=== PATIENT | female | born 1945 | race Caucasian/White ===

== ENCOUNTER → 2018-02-27 13:11 | Outpatient (CLI) | payer MEDICARE, OTHER, SELFPAY ==
--- NOTE | 2018-02-27 13:13 | DI.US.S_ITS ---
ULTRASOUND OF RIGHT BREAST: 02/27/2018 CLINICAL: Right breast pain only when burping. Comparison is made to exam dated: 10/24/2017 [facility]. Color flow ultrasound of the right breast was performed. Gonzalez scale images of the real-time examination were reviewed. IMPRESSION: NEGATIVE There is no sonographic evidence of malignancy. There is no abnormality seen in the right breast to correspond with the area of clinical concern, however, clinical followup is recommended. A 1 year screening mammogram is recommended. This exam was interpreted at Station ID: [id number]. Electronically Signed By: Farhat villegas/ana:02/27/2018 17:30:42 letter sent: Clinical Evaluation Ultrasound BI-RADS: 1 Negative
== END ==
PROVIDERS: PCP Family Medicine; Visit Provider Nurse Practitioner Family
DX: N64.4 Mastodynia (principal)
CPT/HCPCS: 76642

== ENCOUNTER 2018-04-04 10:49 | Emergency (ER) | payer MEDICARE, OTHER, SELFPAY ==
[2018-04-04 11:04] VITALS: BP 176/65; PULSE 66; RESP 18; TEMP 36.7; O2SAT 98; BMI 27.3
--- NOTE | 2018-04-04 12:21 | DI.CT.S_ITS ---
PROCEDURE: CT HEAD/BRAIN WO CON INDICATIONS: headache TECHNIQUE: Noncontrast 4.5 mm thick angled axial sections acquired from the foramen magnum to the vertex, with coronal and sagittal reformats. For radiation dose reduction, the following was used: automated exposure control, adjustment of mA and/or kV according to patient size. COMPARISON: None. FINDINGS: Image quality: Excellent. CSF spaces: Basal cisterns are patent. No extra-axial fluid collections. Ventricles are normal in size and shape. Brain: No midline shift. No intracranial masses or hemorrhage. Gonzalez-white matter interface is normal. Skull and face: Calvarium and visualized facial bones are intact, without suspicious lesions. Sinuses: Visualized sinuses and mastoids are clear. IMPRESSION: No source of headache is found. Dictated by: Ty Eaton M.D. on 04/04/2018 at 12:50 Approved by: Ty Eaton M.D. on 04/04/2018 at 12:50
[2018-04-04 12:44] LABS: Add Manual Diff / Slide Review NO; Basophils Percent Auto 1.1 % (0-2); Eosinophils Percent Auto 1.1 % (2-4); Hematocrit 39.2 % (36-46); Hemoglobin 13.4 g/dL (12.0-16.0); Lymphocytes Percent Auto 26.6 % (25-40); Mean Corpuscular HGB Conc 34.2 % (30-36); Mean Corpuscular Hemoglobin 30.3 PG (26-34); Mean Corpuscular Volume 88.7 fL (80-100); Monocytes Percent Auto 8.2 % (3-14); Neutrophils Absolute Auto 3000 /uL (3000-5900); Platelet Count 184 X10^3/uL (150-400); Red Blood Cell Count 4.42 X10^6/uL (4.0-5.2); White Blood Cell Count 4.8 X10^3/uL (4.5-11.0)
--- NOTE | 2018-04-04 12:51 | ED_ITS ---
HPI - Headache <SAVANNA Pérez - Last Filed: 04/04/18 22:02> General Chief Complaint: Headache Stated Complaint: sharp pain in left side of head x3 days Time Seen by Provider: 04/04/18 12:06 History of Present Illness HPI Narrative: 73-year-old female here for complaint of left-sided headache for the last 3 days. She states that she recently had put her dog down and she spent most of the day crying and after that she has had headache on and off over the last 3 days. She denies any trauma to her head. She denies any fevers or chills. No nausea or vomiting. No photophobia. She states that her headache seems to improve when she relaxes. She denies any stressors to the headache. She is ambulatory into the emergency room. She denies any neuro deficits. MD Complaint: headache Related Data Home Medications Medication Instructions Recorded Confirmed ascorbic acid (vitamin C) 1 tab PO QPM #0 07/06/17 04/04/18 calcium citrate 1 tab PO QPM #0 07/06/17 04/04/18 cholecalciferol (vitamin D3) 1 tab PO QPM #0 07/06/17 04/04/18 [Vitamin D3] magnesium 1 tab PO QPM #0 07/06/17 04/04/18 multivitamin [Multiple Vitamins] 1 tab PO QPM #0 07/06/17 04/04/18 vitamin A 1 cap PO QPM #0 07/06/17 04/04/18 metoprolol tartrate 75 mg PO QPM 04/04/18 04/04/18 Allergies Allergy/AdvReac Type Severity Reaction Status Date / Time Codeine Allergy Mild Rash Uncoded 02/04/18 09:01 Review of Systems <SAVANNA Pérez - Last Filed: 04/04/18 22:02> Constitutional Denies chills, Denies fever(s), Reports headache(s), Denies lethargy and Denies weakness Eyes Denies change in vision, Denies eye discharge, Denies irritation and Denies loss of vision ENT Ears, Nose, Mouth, and Throat: Denies change in voice, Reports headache(s), Denies neck pain and Denies sore throat Cardiovascular Denies chest pain, Denies irregular heart rhythm, Denies lightheadedness, Denies palpitations, Denies dyspnea, Denies dyspnea on exertion and Denies orthopnea Respiratory Denies cough, Denies dyspnea, Denies dyspnea on exertion and Denies wheezing Gastrointestinal Gastrointestinal: Denies abdominal pain, Denies change in bowel habits, Denies diarrhea, Denies nausea and Denies vomiting Genitourinary Denies hematuria, Denies flank pain, Denies urinary incontinence and Denies urinary urgency Musculoskeletal Denies neck pain Integumentary/Breasts Denies pruritus, Denies erythema, Denies rash and Denies wounds Neurologic Denies confusion, Reports headache(s), Denies loss of vision and Denies weakness Psychiatric Denies anxiety, Denies confusion, Denies depression, Denies homicidal ideation and Denies suicidal ideation Endocrine Denies palpitations Hematologic/Lymphatic Denies easy bruising Allergic/Immunologic Denies wheezing Exam <SAVANNA Pérez - Last Filed: 04/04/18 22:02> Initial Vital Signs Initial Vital Signs: Vital Signs Temperature 98.0 F 04/04/18 11:04 Pulse Rate 66 04/04/18 11:04 Respiratory Rate 18 04/04/18 11:04 Blood Pressure 176/65 H 04/04/18 11:04 Pulse Oximetry 98 04/04/18 11:04 HENMT Head: normocephalic and atraumatic Ears: external ears normal and TM's normal bilaterally Nose: external nose normal and No nasal discharge Mouth: oral mucosae normal and moist mucous membranes Teeth and gingiva: dentition normal Throat: tonsils normal and uvula midline Eyes Conjunctivae: conjunctivae normal Sclera: sclerae normal Pupils: PERRL EOM: EOM intact bilaterally Neck Neck: normal visual inspection, trachea midline, No lymphadenopathy, No midline deformity and No JVD Lymphatic: No lymphedema Resp Effort & Inspection: normal respiratory effort, able to speak in complete sentences, no respiratory distress and no use of accessory muscles Auscultation: clear to auscultation bilaterally, no rales, no rhonchi and no wheezes Cardio Rate: regular rate Rhythm: regular rhythm Heart Sounds: no click, no gallops, no murmurs and no rubs Pulses: normal peripheral pulses Skin General: no rashes or lesions noted, No jaundice and No petechiae Neuro General: alert, oriented x3, gait normal and no focal motor deficits Speech: speech normal Gait: normal gait Motor: muscle tone normal throughout Sensory Exam: no sensory deficits noted <DO Paulina Rader Last Filed: 04/05/18 12:17> Initial Vital Signs Initial Vital Signs: Vital Signs Temperature 98.0 F 04/04/18 11:04 Pulse Rate 66 04/04/18 11:04 Respiratory Rate 18 04/04/18 11:04 Blood Pressure 176/65 H 04/04/18 11:04 Pulse Oximetry 98 04/04/18 11:04 Course <SAVANNA Pérez - Last Filed: 04/04/18 22:02> Orders Ordered: ED Orders 04/04/18 12:21 CT head/brain wo con Stat 04/04/18 12:40 Complete Blood Count AUTO DIFF Stat Comprehensive Metabolic Panel Stat Vital Signs - 8 hr 04/04/18 11:04 04/04/18 12:52 Temperature 98.0 F Pulse Rate 66 71 Respiratory Rate 18 14 Blood Pressure 176/65 H Blood Pressure [Left Arm] 159/61 H Pulse Oximetry 98 100 <DO Paulina Rader Last Filed: 04/05/18 12:17> Orders Ordered: ED Orders 04/04/18 12:21 CT head/brain wo con Stat 04/04/18 12:40 Complete Blood Count AUTO DIFF Stat Comprehensive Metabolic Panel Stat Vital Signs - 8 hr 04/04/18 11:04 04/04/18 12:52 Temperature 98.0 F Pulse Rate 66 71 Respiratory Rate 18 14 Blood Pressure 176/65 H Blood Pressure [Left Arm] 159/61 H Pulse Oximetry 98 100 MDM - Headache <SAVANNA Pérez Last Filed: 04/04/18 22:02> Lab Data Result diagrams: 04/04/18 12:40 04/04/18 12:40 Lab Results 04/04/18 04/04/18 Range/Units 12:40 12:40 WBC 4.8 (4.5-11.0) X10^3/uL RBC 4.42 (4.0-5.2) X10^6/uL Hgb 13.4 (12.0-16.0) g/dL Hct 39.2 (36-46) % MCV 88.7 (80-100) fL MCH 30.3 (26-34) PG MCHC 34.2 (30-36) % RDW 13.0 (11.6-14.8) % Plt Count 184 (150-400) X10^3/uL Neut % (Auto) 63.0 (50-75) % Lymph % (Auto) 26.6 (25-40) % [place] % (Auto) 8.2 (3-14) % Eos % (Auto) 1.1 L (2-4) % Baso % (Auto) 1.1 (0-2) % Neut # (Auto) 3000 (8871-1336) /uL Sodium 143 (137-145) mmol/L Potassium 4.1 (3.4-5.1) mmol/L Chloride 103 (98-107) mmol/L Carbon Dioxide 30 (22-32) mmol/L BUN 21 H (7-17) mg/dL Creatinine 0.70 (0.52-1.04) mg/dL Estimated GFR > 60.0 (>60) mL/min BUN/Creatinine Ratio 30.0 H (6-22) Glucose 88 (80-110) mg/dL Calcium 9.5 (8.4-10.2) mg/dL Total Bilirubin 0.5 (0.2-1.3) mg/dL AST 23 (14-36) IU/L ALT 25 (9-52) IU/L Alkaline Phosphatase 39 (38-126) U/L Total Protein 7.4 (6.3-8.2) g/dL Albumin 4.3 (3.5-5.0) g/dL Globulin 3.1 (1.7-4.1) g/dL Albumin/Globulin Ratio 1.4 (1.0-2.8) Imaging Data CT scan - head: Radiologist's impression: PROCEDURE: CT HEAD/BRAIN WO CON INDICATIONS: headache TECHNIQUE: Noncontrast 4.5 mm thick angled axial sections acquired from the foramen magnum to the vertex, with coronal and sagittal reformats. For radiation dose reduction, the following was used: automated exposure control, adjustment of mA and/or kV according to patient size. COMPARISON: None. FINDINGS: Image quality: Excellent. CSF spaces: Basal cisterns are patent. No extra-axial fluid collections. Ventricles are normal in size and shape. Brain: No midline shift. No intracranial masses or hemorrhage. Gonzalez-white matter interface is normal. Skull and face: Calvarium and visualized facial bones are intact, without suspicious lesions. Sinuses: Visualized sinuses and mastoids are clear. IMPRESSION: No source of headache is found. Dictated by: Ty Eaton M.D. on 04/04/2018 at 12:50 Approved by: Ty Eaton M.D. on 04/04/2018 at 12:50 [facility] Narrative Medical decision making narrative: CBC and Chem panel were obtained and were unremarkable. CT of the head was obtained and was negative for any acute findings. Patient's blood pressure was elevated when she arrived after her blood pressure reduced her headache also reduced. Headache goes from base of neck to the left side of the head consistent with tension-type headache with increased stress over the past few days may be causing her symptoms. Differential of elevated blood pressure causing headache. She is encouraged to follow up with her primary care provider in the next few days for re-evaluation she is encouraged to monitor her blood pressure and keep a log and bring with her to her primary care provider for further evaluation for hypertension. Over- the-counter Tylenol and Motrin as needed for headache. May use heat to neck muscles to help keep a loose. Gentle range of motion to the neck to also keep muscles loose. For any worsening symptoms return to the emergency room. <Jackie Cuello, DO - Last Filed: 04/05/18 12:17> Lab Data Lab Results 04/04/18 04/04/18 Range/Units 12:40 12:40 WBC 4.8 (4.5-11.0) X10^3/uL RBC 4.42 (4.0-5.2) X10^6/uL Hgb 13.4 (12.0-16.0) g/dL Hct 39.2 (36-46) % MCV 88.7 (80-100) fL MCH 30.3 (26-34) PG MCHC 34.2 (30-36) % RDW 13.0 (11.6-14.8) % Plt Count 184 (150-400) X10^3/uL Neut % (Auto) 63.0 (50-75) % Lymph % (Auto) 26.6 (25-40) % [place] % (Auto) 8.2 (3-14) % Eos % (Auto) 1.1 L (2-4) % Baso % (Auto) 1.1 (0-2) % Neut # (Auto) 3000 (3622-1445) /uL Sodium 143 (137-145) mmol/L Potassium 4.1 (3.4-5.1) mmol/L Chloride 103 (98-107) mmol/L Carbon Dioxide 30 (22-32) mmol/L BUN 21 H (7-17) mg/dL Creatinine 0.70 (0.52-1.04) mg/dL Estimated GFR > 60.0 (>60) mL/min BUN/Creatinine Ratio 30.0 H (6-22) Glucose 88 (80-110) mg/dL Calcium 9.5 (8.4-10.2) mg/dL Total Bilirubin 0.5 (0.2-1.3) mg/dL AST 23 (14-36) IU/L ALT 25 (9-52) IU/L Alkaline Phosphatase 39 (38-126) U/L Total Protein 7.4 (6.3-8.2) g/dL Albumin 4.3 (3.5-5.0) g/dL Globulin 3.1 (1.7-4.1) g/dL Albumin/Globulin Ratio 1.4 (1.0-2.8) Discharge Plan Departure Patient Disposition: Home, Self-Care Clinical Impression: Headache Discharge Date/Time: 04/04/18 13:45 Interventions: ED Discharge Assessment Last Done: 04/04/18 13:44 Instructions: DI for Headache Activity Restrictions/Additional Instructions: Laboratory results and head CT were unremarkable today. Blood pressure was elevated when today in the emergency room this could be aggravating your headache or may be due to the headache. Recommend monitoring blood pressure and keeping a record of blood pressures and bring information to your primary care provider next week for re-evaluation. Use [id number] Tylenol and Motrin as needed for discomfort. Headache may be stress related causing tension type headache use gentle range of motion to the neck muscles to help keep muscles loose. Heat to the painful neck muscles to also keep muscles loose. For any worsening symptoms return to the emergency room. Prescriptions: No Action multivitamin [Multiple Vitamins] 1 EACH tablet 1 tab PO QPM Qty: 0 RF: 0 magnesium 200 mg Tablet 1 tab PO QPM Qty: 0 RF: 0 vitamin A 10,000 unit Capsule 1 cap PO QPM Qty: 0 RF: 0 ascorbic acid (vitamin C) 500 mg Tablet 1 tab PO QPM Qty: 0 RF: 0 calcium citrate 200 mg (950 mg) Tablet 1 tab PO QPM Qty: 0 RF: 0 cholecalciferol (vitamin D3) [Vitamin D3] 1,000 unit Tablet 1 tab PO QPM Qty: 0 RF: 0 metoprolol tartrate 50 MG tablet 75 mg PO QPM RF: 0 Referrals: Sharla Murry MD [Primary Care Provider] - <Jackie Cuello DO - Last Filed: 04/05/18 12:17> Cosign ED Attending Cosannemarieature Attestation: I was immediately available in the department for consultation. Documentation has been reviewed. I agree with assessment and plan.
[2018-04-04 12:52] VITALS: BP 159/61; PULSE 71; RESP 14; O2SAT 100
[2018-04-04 12:58] LABS: Alanine Aminotransferase 25 IU/L (9-52); Albumin 4.3 g/dL (3.5-5.0); Albumin Globulin Ratio 1.4 (1.0-2.8); Alkaline Phosphatase 39 U/L (38-126); Aspartate Aminotransferase 23 IU/L (14-36); Bilirubin Total 0.5 mg/dL (0.2-1.3); Blood Urea Nitrogen 21 mg/dL (7-17); Calcium 9.5 mg/dL (8.4-10.2); Carbon Dioxide 30 mmol/L (22-32); Chloride 103 mmol/L (98-107); Estimated Glomerular Filt Rate > 60.0 mL/min (>60); Globulin 3.1 g/dL (1.7-4.1); Glucose 88 mg/dL (80-110); HEMOLYSIS 19 (0-50); Potassium 4.1 mmol/L (3.4-5.1); Sodium 143 mmol/L (137-145); Total Protein 7.4 g/dL (6.3-8.2)
== END 2018-04-04 13:45 | disposition home or self-care (01) ==
PROVIDERS: Emergency Provider Nurse Practitioner Family; Family Provider Family Medicine; PCP Family Medicine
DX: R51 Headache (principal)
CPT/HCPCS: 36415; 70450; 80053; 85025; 99282; 99284

== ENCOUNTER → 2018-11-04 14:12 | Outpatient (CLI) | payer MEDICARE, SELFPAY ==
--- NOTE | 2018-11-04 14:15 | DI.MG.S_ITS ---
BILATERAL DIGITAL SCREENING MAMMOGRAM 3D/2D WITH CAD: 11/04/2018 CLINICAL: Routine screening. Family history of breast cancer. Comparison is made to exams dated: 10/24/2017 mammogram, 09/19/2016 mammogram, and 09/17/2015 mammogram - [facility]. There are scattered fibroglandular elements in both breasts. Current study was also evaluated with a Computer Aided Detection (CAD) system. No significant masses, calcifications, or other findings are seen in either breast. There has been no significant interval change. IMPRESSION: NEGATIVE There is no mammographic evidence of malignancy. A 1 year screening mammogram is recommended. This exam was interpreted at Station ID: [id number]. NOTE: For mammograms, a report in lay terms will be sent to the patient. Approximately 15% of breast malignancies will not be visualized mammographically. In the management of a palpable breast mass, a negative mammogram must not discourage biopsy of a clinically suspicious lesion. Electronically Signed By: Patricia enrique/ana:11/04/2018 16:03:40 letter sent: Normal Exam ACR BI-RADS Category 1: Negative [id number]
== END ==
PROVIDERS: Family Provider Family Medicine; PCP Family Medicine; Visit Provider Family Medicine
DX: Z12.31 Encounter for screening mammogram for malignant neoplasm of breast (principal); Z80.3 Family history of malignant neoplasm of breast
CPT/HCPCS: 77063; 77067

== ENCOUNTER → 2018-11-19 09:33 | Outpatient (CLI) | payer MEDICARE, SELFPAY ==
[2018-11-19 09:51] LABS: Add Manual Diff / Slide Review NO; Basophils Absolute Auto 0 /uL (0-100); Basophils Percent Auto 1.1 % (0-2); Eosinophils Absolute Auto 100 /uL (0-450); Eosinophils Percent Auto 1.8 % (2-4); Hematocrit 41.7 % (36-46); Hemoglobin 13.9 g/dL (12.0-16.0); Lymphocytes Absolute Auto 1400 /uL (1100-4500); Lymphocytes Percent Auto 30.3 % (25-40); Mean Corpuscular HGB Conc 33.2 % (30-36); Mean Corpuscular Hemoglobin 29.4 PG (26-34); Mean Corpuscular Volume 88.6 fL (80-100); Monocytes Absolute Auto 400 /uL (0-900); Monocytes Percent Auto 8.2 % (3-14); Neutrophils Absolute Auto 2600 /uL (1500-7000); Neutrophils Percent Auto 58.6 % (50-75); Platelet Count 198 X10^3/uL (150-400); Red Blood Cell Count 4.71 X10^6/uL (4.0-5.2); Red Cell Distribution Width 12.9 % (11.6-14.8); White Blood Cell Count 4.5 X10^3/uL (4.5-11.0)
[2018-11-19 09:59] LABS: Alanine Aminotransferase 27 IU/L (9-52); Albumin 4.5 g/dL (3.5-5.0); Albumin Globulin Ratio 1.5 (1.0-2.8); Alkaline Phosphatase 37 U/L (38-126); Aspartate Aminotransferase 24 IU/L (14-36); BUN Creatinine Ratio 21.1 (6-22); Bilirubin Total 0.5 mg/dL (0.2-1.3); Blood Urea Nitrogen 19 mg/dL (7-17); Calcium 9.6 mg/dL (8.4-10.2); Carbon Dioxide 31 mmol/L (22-32); Chloride 101 mmol/L (98-107); Cholesterol 196 mg/dL (140-199); Estimated Glomerular Filt Rate > 60.0 mL/min (>60); Globulin 3.1 g/dL (1.7-4.1); Glucose 92 mg/dL (80-110); HDL Cholesterol 53 mg/dL (40-60); HEMOLYSIS < 15 (0-50); LDL Cholesterol Calculated 121 mg/dL (<100); Potassium 4.1 mmol/L (3.4-5.1); Sodium 141 mmol/L (137-145); Total Protein 7.6 g/dL (6.3-8.2); Triglycerides 109 mg/dL (35-150)
[2018-11-19 10:43] LABS: Thyroid Stimulating Hormone 3.75 uIU/mL (0.47-4.68)
== END ==
PROVIDERS: PCP Family Medicine; Visit Provider Family Medicine
DX: I10 Essential (primary) hypertension (principal)
CPT/HCPCS: 36415; 80053; 80061; 84443; 85025

== ENCOUNTER → 2019-10-22 10:04 | Outpatient (CLI) | payer MEDICARE, SELFPAY ==
[2019-10-22 11:08] LABS: Alanine Aminotransferase 15 IU/L (<35); Albumin 4.3 g/dL (3.5-5.0); Albumin Globulin Ratio 1.3 (1.0-2.8); Alkaline Phosphatase 40 U/L (38-126); Aspartate Aminotransferase 24 IU/L (14-36); BUN Creatinine Ratio 24.4 (6-22); Bilirubin Total 0.5 mg/dL (0.2-1.3); Blood Urea Nitrogen 22 mg/dL (7-17); Calcium 9.5 mg/dL (8.4-10.2); Carbon Dioxide 31 mmol/L (22-32); Chloride 103 mmol/L (98-107); Cholesterol 215 mg/dL (140-199); Estimated Glomerular Filt Rate > 60.0 mL/min (>60); Globulin 3.2 g/dL (1.7-4.1); Glucose 87 mg/dL (80-110); HDL Cholesterol 50 mg/dL (40-60); HEMOLYSIS < 15 (0-50); LDL Cholesterol Calculated 144 mg/dL (<100); Potassium 4.1 mmol/L (3.4-5.1); Sodium 142 mmol/L (137-145); Total Protein 7.5 g/dL (6.3-8.2); Triglycerides 104 mg/dL (35-150)
[2019-10-22 16:30] LABS: Creatinine Urine Random 190.6 mg/dL
[2019-10-22 16:34] LABS: Microalbumi Creatinin Ratio Ur 9.4 ug/mg CR (<30); Microalbumin Urine Random 1.8 mg/dL (0-1.6)
== END ==
PROVIDERS: PCP Family Medicine; Visit Provider Family Medicine
DX: I10 Essential (primary) hypertension (principal)
CPT/HCPCS: 36415; 80053; 80061; 82043; 82570

== ENCOUNTER → 2019-11-06 08:51 | Outpatient (CLI) | payer MEDICARE, SELFPAY ==
--- NOTE | 2019-11-06 09:34 | DI.MG.S_ITS ---
Patient Name: LEEANN HERNANDEZ date: 1945 Sex: F Attending Physician: Filippo Indications: Date: 11/06/2019 09:34 At the request of: SUSY ACOSTA Procedure: MM screening mammo BI BILATERAL DIGITAL SCREENING MAMMOGRAM 3D/2D WITH CAD: 11/06/2019 CLINICAL: Routine screening. Family history of breast cancer. Comparison is made to exams dated: 11/04/2018 mammogram, 10/24/2017 mammogram, 09/19/2016 mammogram, and 09/17/2015 mammogram - [facility]. The tissue of both breasts is heterogeneously dense. This may lower the sensitivity of mammography. Current study was also evaluated with a Computer Aided Detection (CAD) system. No significant masses, calcifications, or other findings are seen in either breast. There has been no significant interval change. IMPRESSION: NEGATIVE There is no mammographic evidence of malignancy. A 1 year screening mammogram is recommended. This exam was interpreted at Station ID: [id number]. NOTE: For mammograms, a report in lay terms will be sent to the patient. Approximately 15% of breast malignancies will not be visualized mammographically. In the management of a palpable breast mass, a negative mammogram must not discourage biopsy of a clinically suspicious lesion. Electronically Signed By: Shoaib nicholson/ana:11/06/2019 18:16:37 letter sent: Normal Exam ACR BI-RADS Category 1: Negative [id number]
== END ==
PROVIDERS: PCP Family Medicine; Referring Provider Family Medicine; Visit Provider Family Medicine
DX: Z12.31 Encounter for screening mammogram for malignant neoplasm of breast (principal); Z80.3 Family history of malignant neoplasm of breast
CPT/HCPCS: 77063; 77067

== ENCOUNTER → 2020-11-08 09:35 | Outpatient (CLI) | payer MEDICARE, SELFPAY ==
--- NOTE | 2020-11-08 09:37 | DI.MG.S_ITS ---
BILATERAL DIGITAL SCREENING MAMMOGRAM 3D/2D WITH CAD: 11/08/2020 CLINICAL: Routine screening. Family history of breast cancer. Comparison is made to exams dated: 11/06/2019 mammogram, 11/04/2018 mammogram, 10/24/2017 mammogram, 09/19/2016 mammogram, and 09/17/2015 mammogram - [facility]. There are scattered fibroglandular elements in both breasts. Current study was also evaluated with a Computer Aided Detection (CAD) system. No significant masses, calcifications, or other findings are seen in either breast. There has been no significant interval change. IMPRESSION: NEGATIVE There is no mammographic evidence of malignancy. A 1 year screening mammogram is recommended. This exam was interpreted at Station ID: [id number]. NOTE: For mammograms, a report in lay terms will be sent to the patient. Approximately 15% of breast malignancies will not be visualized mammographically. In the management of a palpable breast mass, a negative mammogram must not discourage biopsy of a clinically suspicious lesion. Electronically Signed By: Sabino peterson/ana:11/08/2020 10:53:40 letter sent: Normal Exam ACR BI-RADS Category 1: Negative [id number]
== END ==
PROVIDERS: PCP Family Medicine; Referring Provider Family Medicine; Visit Provider Family Medicine
DX: Z12.31 Encounter for screening mammogram for malignant neoplasm of breast (principal); Z80.3 Family history of malignant neoplasm of breast
CPT/HCPCS: 77063; 77067

== ENCOUNTER → 2021-05-12 08:44 | Outpatient (CLI) | payer MEDICARE, SELFPAY ==
[2021-05-12 09:57] LABS: Add Manual Diff / Slide Review NO; Basophils Absolute Auto 0 /uL (0-100); Basophils Percent Auto 0.8 % (0-2); Eosinophils Absolute Auto 300 /uL (0-450); Eosinophils Percent Auto 5.3 % (2-4); Hemoglobin 13.4 g/dL (12.0-16.0); Lymphocytes Absolute Auto 1300 /uL (1100-4500); Lymphocytes Percent Auto 22.5 % (25-40); Mean Corpuscular HGB Conc 33.4 % (30-36); Mean Corpuscular Hemoglobin 29.9 PG (26-34); Mean Corpuscular Volume 89.5 fL (80-100); Monocytes Absolute Auto 400 /uL (0-900); Monocytes Percent Auto 7.5 % (3-14); Neutrophils Absolute Auto 3700 /uL (1500-7000); Neutrophils Percent Auto 63.9 % (50-75); Platelet Count 191 X10^3/uL (150-400); Red Blood Cell Count 4.47 X10^6/uL (4.0-5.2); Red Cell Distribution Width 13.2 % (11.6-14.8); White Blood Cell Count 5.8 X10^3/uL (4.5-11.0)
[2021-05-12 10:25] LABS: Alanine Aminotransferase 15 IU/L (<35); Albumin Globulin Ratio 1.3 (1.0-2.8); Alkaline Phosphatase 39 U/L (38-126); Aspartate Aminotransferase 25 IU/L (14-36); BUN Creatinine Ratio 27.6 (6-22); Bilirubin Total 0.4 mg/dL (0.2-1.3); Blood Urea Nitrogen 21 mg/dL (7-17); Calcium 9.6 mg/dL (8.4-10.2); Carbon Dioxide 30 mmol/L (22-32); Chloride 107 mmol/L (98-107); Cholesterol 215 mg/dL (140-199); Estimated Glomerular Filt Rate > 60.0 mL/min (>60); Globulin 3.1 g/dL (1.7-4.1); Glucose 88 mg/dL (80-110); HDL Cholesterol 60 mg/dL (40-60); HEMOLYSIS < 15 (0-50); LDL Cholesterol Calculated 137 mg/dL (<100); Potassium 4.1 mmol/L (3.4-5.1); Sodium 142 mmol/L (137-145); Total Protein 7.1 g/dL (6.3-8.2); Triglycerides 92 mg/dL (35-150)
[2021-05-12 10:53] LABS: TSH w/ Reflex to FT4 2.82 uIU/mL (0.47-4.68)
== END ==
PROVIDERS: PCP Family Medicine; Referring Provider Family Medicine; Visit Provider Family Medicine
DX: E78.5 Hyperlipidemia, unspecified (principal); I10 Essential (primary) hypertension
CPT/HCPCS: 36415; 80053; 80061; 84443; 85025

== ENCOUNTER → 2021-06-14 09:39 | Outpatient (CLI) | payer MEDICARE, SELFPAY ==
[2021-06-14 10:40] LABS: BUN Creatinine Ratio 22.4 (6-22); Blood Urea Nitrogen 17 mg/dL (7-17); Estimated Glomerular Filt Rate > 60.0 mL/min (>60)
== END ==
PROVIDERS: PCP Family Medicine; Referring Provider Family Medicine; Visit Provider Family Medicine
DX: Z01.812 Encounter for preprocedural laboratory examination (principal)
CPT/HCPCS: 36415; 82565; 84520

== ENCOUNTER → 2021-06-15 11:59 | Outpatient (CLI) | payer MEDICARE, SELFPAY ==
--- NOTE | 2021-06-15 12:00 | DI.CT.S_ITS ---
PROCEDURE: CT ANGIO HEAD INDICATIONS: look for aneurysm due to family history brain aneurysm. TECHNIQUE: Precontrast 4.5 mm thick angled axial sections acquired from the foramen magnum to the vertex. After the administration of intravenous contrast, 1 mm thick sections acquired through the [place]. Postcontrast 4.5 mm thick sections then re-acquired from the foramen magnum to the vertex. 10 mm thick jgbrfpo-[id number] (MIP) reformats were acquired of the central intracranial vasculature. For radiation dose reduction, the following was used: automated exposure control, adjustment of mA and/or kV according to patient size. COMPARISON: [facility], CT, CT HEAD/BRAIN WO CON, 04/04/2018, 12:16. FINDINGS: Image quality: Excellent. Anterior circulation: Intracranial internal carotid arteries demonstrate atherosclerotic irregularity and calcification, with 40-50% narrowing seen on each side. The flow within the paired anterior cerebral arteries is normal and symmetric. The flow within the middle cerebral arteries is normal and symmetric. The anterior communicating artery is seen. No aneurysms are seen. Posterior circulation: Visualized portions of the vertebral arteries demonstrate normal caliber, and join to form a normal appearing basilar artery. There is a prominent right posterior communicating artery seen, with an accompanying diminutive right P1 segment. This is attributed to a type origin of the right posterior cerebral artery, which is considered to be a normal developmental variant of typically no clinical consequence. Flow within the posterior cerebral arteries is normal and symmetric. No aneurysms are seen. CSF spaces: Ventricles are normal in size and shape. Basal cisterns are patent. No extra-axial fluid collections. Brain: No midline shift. No intracranial bleeds or masses. Gonzalez-white matter interface appears intact. Note is made of age-appropriate brain parenchymal volume loss and chronic small vessel ischemic changes. Skull and face: Calvarium and facial bones appear intact, without suspicious lesions. Sinuses: Visualized sinuses and mastoids are clear. IMPRESSION: Negative for aneurysm. Dictated by: Harish Segura M.D. on 06/15/2021 at 13:04 Approved by: Harish Segura M.D. on 06/15/2021 at 13:10
== END ==
PROVIDERS: PCP Family Medicine; Referring Provider Family Medicine; Visit Provider Family Medicine
DX: Z13.6 Encounter for screening for cardiovascular disorders (principal); Z82.49 Family history of ischemic heart disease and other diseases of the circulatory system
CPT/HCPCS: 70496

== ENCOUNTER → 2021-07-01 09:38 | Outpatient (CLI) | payer MEDICARE, SELFPAY ==
--- NOTE | 2021-07-01 09:38 | DI.US.S_ITS ---
PROCEDURE: US CAROTID DOPPLER BI INDICATIONS: ESSENTIAL HTN; FAMILY HISTORY ANEURYSM TECHNIQUE: Color and pulse Doppler interrogation was performed of both carotid systems, with image documentation and velocity measurements. COMPARISON: [facility], , CAROTID ARTERY DOPPLER BILAT, 02/15/2011, 14:07. FINDINGS: Stenosis calculations are based on SRU (Society of Radiologists in Ultrasound) criteria. Right side: Brachial blood pressure: 142/71 mm Hg. Common carotid artery peak systolic velocity: 62 cm/sec. Internal carotid artery peak systolic velocity: 113 cm/sec. Internal carotid artery end diastolic velocity: 31 cm/sec. External carotid artery peak systolic velocity: 58 cm/sec. ICA/CCA peak systolic ratio: 1.8 . Gonzalez scale imaging description: No visualized plaque. Percent internal carotid artery stenosis: No hemodynamically significant stenosis. . Vertebral artery: Flow direction is antegrade. Left side: Brachial blood pressure: 158/67 mm Hg. Common carotid artery peak systolic velocity: 76 cm/sec. Internal carotid artery peak systolic velocity: 79 cm/sec. Internal carotid artery end diastolic velocity: 24 cm/sec. External carotid artery peak systolic velocity: 50 cm/sec. ICA/CCA peak systolic ratio: 1.0 . Gonzalez scale imaging description: Minimal plaque at the bifurcation. Percent internal carotid artery stenosis: Less than 50% . Vertebral artery: Flow direction is antegrade. IMPRESSION: Less than 50% stenosis of the left internal carotid artery. No hemodynamically significant stenosis of the right internal carotid artery. No aneurysms are identified. Dictated by: Bobbi Simons M.D. on 07/01/2021 at 13:28 Approved by: Bobbi Simons M.D. on 07/01/2021 at 13:51
== END ==
PROVIDERS: PCP Family Medicine; Referring Provider Family Medicine; Visit Provider Family Medicine
DX: I10 Essential (primary) hypertension (principal); Z82.49 Family history of ischemic heart disease and other diseases of the circulatory system; I65.22 Occlusion and stenosis of left carotid artery
CPT/HCPCS: 93880

== ENCOUNTER → 2021-07-18 12:11 | Outpatient (CLI) | payer MEDICARE, SELFPAY ==
[2021-07-18 13:37] LABS: Vitamin B12 544 pg/mL (239-931)
== END ==
PROVIDERS: PCP Family Medicine; Referring Provider Family Medicine; Visit Provider Family Medicine
DX: F03.90 Unspecified dementia, unspecified severity, without behavioral disturbance, psychotic disturbance, mood disturbance, and anxiety (principal)
CPT/HCPCS: 36415; 82607

== ENCOUNTER 2021-08-11 15:21 | Emergency (ER) | payer MEDICARE, SELFPAY ==
[2021-08-11 15:25] VITALS: BP 139/94; PULSE 71; RESP 14; TEMP 36.7; O2SAT 96; BMI 23.3
--- NOTE | 2021-08-11 15:40 | ED_ITS ---
HPI - Extremity Problem General Chief complaint: Extremity Problem,Nontraumatic Stated complaint: Chest Pain, Lt Side Time Seen by Provider: 08/11/21 15:35 Source: patient Mode of arrival: Ambulatory Limitations: no limitations History of Present Illness HPI Narrative: Patient is a 76-year-old female history of hypertension presenting with left shoulder pain. She said she worked in the [employer] yesterday but did not have any pain this morning. She went to the grocery store she brought gross reason she made when she sat in her chair in instantly had pinpoint pain in her left shoulder joint. If she actually has had this pain previously but it has been 2 years. In fact she even went to physical therapy for. She denies numbness tingling or weakness. It is very pinpoint in her glenohumeral joint. She has absolutely no chest pain no heart palpitations no shortness of breath. She is concerned because her sister suddenly of a cerebral hemorrhage. Related Data Home Medications Medication Instructions Recorded Confirmed ascorbic acid (vitamin C) 500 mg 1 tab PO QPM #0 07/06/17 06/13/21 tablet calcium citrate 200 mg (950 mg) 1 tab PO QPM #0 07/06/17 06/13/21 tablet cholecalciferol (vitamin D3) 25 1 tab PO QPM #0 07/06/17 06/13/21 mcg (1,000 unit) tablet (Vitamin D3) magnesium 200 mg tablet 1 tab PO QPM #0 07/06/17 06/13/21 multivitamin (Multiple Vitamins) 1 tab PO QPM #0 07/06/17 06/13/21 vitamin A 10,000 unit capsule 1 cap PO QPM #0 07/06/17 06/13/21 aspirin 81 mg tablet,delayed 81 mg PO DAILY 09/17/18 06/13/21 release (Adult Aspirin Regimen) Previous Rx's Medication Instructions Recorded metoprolol tartrate 50 mg tablet See Rx Instructions .ROUTE 06/08/21 .COMPLEX #135 tab simvastatin 20 mg tablet 20 mg PO BEDTIME #90 tab 06/08/21 Allergies Allergy/AdvReac Type Severity Reaction Status Date / Time codeine Allergy Verified 08/11/21 15:29 Review of Systems Review of Systems Narrative: GENERAL: Denies chills, fatigue, malaise, fever, sweats, travel HEENT: Denies sinus pain, ear pain, sore throat, difficulty swallowing, neck pain RESPIRATORY: Denies dyspnea, cough, wheezing, hemoptysis, sputum. CARDIOVASCULAR: Denies chest pain, palpitations, orthopnea, edema GASTROINTESTINAL: Denies nausea, vomiting, abdominal pain, diarrhea, constipation, melena. : Denies dysuria, frequency, incontinence, hematuria, urinary retention, flank pain. MUSCULOSKELETAL: See HPI SKIN: No rash, no erythema, no pruritus NEUROLOGIC: Denies weakness, dizziness, headache, numbness, change in speech, confusion PSYCHIATRIC: No concerning psychosocial issues. 12 point review of systems is negative except for those stated above and HPI Patient History Medical History (Updated 08/11/21 @ 16:20 by Jackie Cuello DO) Nonsustained supraventricular tachycardia Ruptured tympanic membrane (2013) Surgical History History of hysterectomy for malignancy (2006) Social History marital status: number of children: 2 household members: spouse lives independently: Yes caregiver/support person: No housing: house occupational status: previously employed Smoking Status: Former smoker second hand exposure: No alcohol intake: current substance use type: does not use Smoking Status: Former smoker alcohol intake frequency: 0-2 drinks per day Substance Use Type: does not use Exam Initial Vital Signs Initial Vital Signs: Vital Signs Temperature 98.1 F 08/11/21 15:25 Pulse Rate 71 08/11/21 15:25 Respiratory Rate 14 08/11/21 15:25 Blood Pressure 139/94 H 08/11/21 15:25 Pulse Oximetry 96 08/11/21 15:25 GENERAL: Alert well-appearing 76-year-old female in no acute distress. HEENT: Head atraumatic,EOMI, pupils reactive, face symmetric, moist mucous membranes CARDIOVASCULAR: Regular rate and rhythm without murmurs, rubs or gallops. RESPIRATORY: Breath sounds equal bilaterally, no wheezes rales or rhonchi. EXTREMITIES: Normal range of motion, no clubbing or edema. Neurovascularly intact Left upper extremity point tenderness in the glenohumeral joint not over biceps tendon. She actually has full range of motion no clavicle step-off. However pain over pectoralis muscle, near joint. Reproducible with palpation. NEUROLOGICAL: Alert and oriented x4.Normal gait and speech. [employer] strength equal bilaterally SKIN: Warm, dry, no laceration, no petechiae, no rashes or lesions. Course Orders Ordered: ED Orders 08/11/21 15:28 EKG-12 Lead Stat Vital Signs Vital signs: Vital Signs - 8 hr 08/11/21 15:25 Temperature 98.1 F Pulse Rate 71 Respiratory Rate 14 Blood Pressure 139/94 H Pulse Oximetry 96 MDM - Extremity (Nontraumatic) ECG Data Interpretation: Normal sinus rhythm rate 62 MO interval 270 QRS [address] changes or T-wave inversions New first-degree AV block compared to previous EKG in 2017. [facility] [place] Narrative Medical decision making narrative: Patient is having pinpoint reproducible shoulder pain. She had overuse yesterday bitten had started having pain in till today. She has absolutely no chest pain. I believe this to be musculoskeletal rather than cardiac. It is definitely in the glenohumeral joint. She also has a history of previous shoulder injury in this particular shoulder as well. At this time no need for imaging she had no acute traumatic injury. Discharge Plan Departure Patient Disposition: Home Clinical Impression: Left shoulder strain Qualifiers: Encounter type: initial encounter Qualified Code(s): S46.912A - Strain of unspecified muscle, fascia and tendon at shoulder and upper arm level, left arm, initial encounter Instructions: Shoulder Sprain Activity Restrictions/Additional Instructions: *You have been diagnosed with left shoulder strain *What to do: Recommend resting, ice 10-20 minutes at a time. If still having pain next week may require physical therapy and/or outpatient MRI. Please see her primary care provider. *Continue to take medications as directed Tylenol 500 mg every 6 hours if needed for [id number] pain *Follow up with your primary care provider in 2-3 days *Return to ER if you should have increasing pain, numbness, tingling, chest pain, palpitations shortness of breath or any new, worsening or concerning symptoms Prescriptions: No Action metoprolol tartrate 50 mg tablet See Rx Instructions .ROUTE .COMPLEX Qty: 135 RF: 3 simvastatin 20 mg tablet 20 mg PO BEDTIME Qty: 90 RF: 3 multivitamin [Multiple Vitamins] 1 EACH tablet 1 tab PO QPM Qty: 0 RF: 0 magnesium 200 mg Tablet 1 tab PO QPM Qty: 0 RF: 0 vitamin A 10,000 unit Capsule 1 cap PO QPM Qty: 0 RF: 0 ascorbic acid (vitamin C) 500 mg Tablet 1 tab PO QPM Qty: 0 RF: 0 calcium citrate 200 mg (950 mg) Tablet 1 tab PO QPM Qty: 0 RF: 0 cholecalciferol (vitamin D3) [Vitamin D3] 25 mcg (1,000 unit) Tablet 1 tab PO QPM Qty: 0 RF: 0 aspirin [Adult Aspirin Regimen] 81 mg tablet,delayed release (DR/EC) 81 mg PO DAILY RF: 0 Referrals: Gerri Barkley MD [Primary Care Provider] -
== END 2021-08-11 16:37 | disposition home or self-care (01) ==
PROVIDERS: Emergency Provider Emergency Medicine; PCP Family Medicine
DX: S46.912A Strain of unspecified muscle, fascia and tendon at shoulder and upper arm level, left arm, initial encounter (principal); I44.0 Atrioventricular block, first degree; X58.XXXA Exposure to other specified factors, initial encounter
CPT/HCPCS: 93005; 93010; 99282; 99283

== ENCOUNTER → 2021-10-27 16:12 | Outpatient (CLI) | payer MEDICARE, SELFPAY ==
--- NOTE | 2021-10-27 | DI.MG.S_ITS ---
BILATERAL DIGITAL SCREENING MAMMOGRAM 3D/2D WITH CAD: 10/27/2021 CLINICAL: Routine screening. Family history of breast cancer. Comparison is made to exams dated: 11/08/2020 mammogram, 11/06/2019 mammogram, and 11/04/2018 mammogram - [facility]. There are scattered fibroglandular elements in both breasts. Current study was also evaluated with a Computer Aided Detection (CAD) system. No significant masses, calcifications, or other findings are seen in either breast. There has been no significant interval change. IMPRESSION: NEGATIVE There is no mammographic evidence of malignancy. A 1 year screening mammogram is recommended. This exam was interpreted at Station ID: [id number]. NOTE: For mammograms, a report in lay terms will be sent to the patient. Approximately 15% of breast malignancies will not be visualized mammographically. In the management of a palpable breast mass, a negative mammogram must not discourage biopsy of a clinically suspicious lesion. Electronically Signed By: Jason Nguyen acr/ana:10/28/2021 09:13:51 letter sent: Normal Exam ACR BI-RADS Category 1: Negative 3341F
== END ==
PROVIDERS: PCP Family Medicine; Referring Provider Family Medicine; Visit Provider Family Medicine
DX: Z12.31 Encounter for screening mammogram for malignant neoplasm of breast (principal); Z80.3 Family history of malignant neoplasm of breast
CPT/HCPCS: 77063; 77067

== ENCOUNTER → 2022-01-18 09:22 | Outpatient (CLI) | payer MEDICARE, SELFPAY ==
--- NOTE | 2022-01-18 09:23 | DI.RAD.S_ITS ---
PROCEDURE: XR TIBIA FUBULA RT 2V INDICATIONS: short pain TECHNIQUE: 2 views of the tibia and fibula were acquired. COMPARISON: None. FINDINGS: Bones: Generalized osteopenia. No acute fractures or dislocations. No suspicious bony lesions. Small plantar calcaneal enthesophyte. Soft tissues: No suspicious soft tissue calcifications or masses. IMPRESSION: Generalized osteopenia. No acute osseous abnormality. If the symptoms persist, consider cross sectional imaging such as MRI or CT for further assessment. Dictated by: Behzad Fernandez M.D. on 01/18/2022 at 10:10 Approved by: Behzad Fernandez M.D. on 01/18/2022 at 10:14
== END ==
PROVIDERS: PCP Family Medicine; Referring Provider Family Medicine; Visit Provider Family Medicine
DX: M85.861 Other specified disorders of bone density and structure, right lower leg (principal); M79.661 Pain in right lower leg
CPT/HCPCS: 73590

== ENCOUNTER → 2022-10-31 14:56 | Outpatient (CLI) | payer MEDICARE, SELFPAY ==
--- NOTE | 2022-10-31 | DI.MG.S_ITS ---
BILATERAL DIGITAL SCREENING MAMMOGRAM 3D/2D WITH CAD: 10/31/2022 CLINICAL: Routine screening. Comparison is made to exams dated: 10/27/2021 mammogram, 11/08/2020 mammogram, 11/06/2019 mammogram, and 11/04/2018 mammogram - [facility]. There are scattered areas of fibroglandular density in both breasts (category b / 25%-50% glandular tissue). Current study was also evaluated with a Computer Aided Detection (CAD) system. No significant masses, calcifications, or other findings are seen in either breast. There has been no significant interval change. IMPRESSION: NEGATIVE There is no mammographic evidence of malignancy. A 1 year screening mammogram is recommended. Based on the Tyrer Cuzick model (a risk assessment model) the patient's lifetime risk is 2.1% and her 10 year risk is 0.0%. According to the ACR, ACS, and NCCN guidelines, an annual breast MRI exam along with mammogram is recommended if the patient's lifetime risk is 20% or greater. This exam was interpreted at Station ID: [id number]. NOTE: For mammograms, a report in lay terms will be sent to the patient. Approximately 15% of breast malignancies will not be visualized mammographically. In the management of a palpable breast mass, a negative mammogram must not discourage biopsy of a clinically suspicious lesion. Electronically Signed By: Sabino peterson/ana:11/01/2022 10:02:18 letter sent: Normal Exam ACR BI-RADS Category 1: Negative 3341F
== END ==
PROVIDERS: PCP Family Medicine; Referring Provider Family Medicine; Visit Provider Family Medicine
DX: Z12.31 Encounter for screening mammogram for malignant neoplasm of breast (principal)
CPT/HCPCS: 77063; 77067

== ENCOUNTER → 2023-11-21 15:17 | Outpatient (CLI) | payer OTHER, SELFPAY ==
--- NOTE | 2023-11-21 15:18 | DI.MG.S_ITS ---
BILATERAL DIGITAL SCREENING MAMMOGRAM 3D/2D WITH CAD: 11/21/2023 CLINICAL: Routine screening. Comparison is made to exams dated: 10/31/2022 mammogram, 10/27/2021 mammogram, and 11/08/2020 mammogram - [facility]. There are scattered areas of fibroglandular density in both breasts (category b / 25%-50% glandular tissue). Current study was also evaluated with a Computer Aided Detection (CAD) system. No significant masses, calcifications, or other findings are seen in either breast. There has been no significant interval change. IMPRESSION: NEGATIVE There is no mammographic evidence of malignancy. A 1 year screening mammogram is recommended. Based on the Tyrer Cuzick model (a risk assessment model) the patient's lifetime risk is 1.9% and her 10 year risk is 0.0%. According to the ACR, ACS, and NCCN guidelines, an annual breast MRI exam along with mammogram is recommended if the patient's lifetime risk is 20% or greater. This exam was interpreted at Station ID: [id number]. NOTE: For mammograms, a report in lay terms will be sent to the patient. Approximately 15% of breast malignancies will not be visualized mammographically. In the management of a palpable breast mass, a negative mammogram must not discourage biopsy of a clinically suspicious lesion. Electronically Signed By: Jose mike/ana:11/22/2023 08:41:33 letter sent: Normal Exam ACR BI-RADS Category 1: Negative [id number]
== END ==
PROVIDERS: PCP Family Medicine; Referring Provider Family Medicine; Visit Provider Family Medicine
DX: Z12.31 Encounter for screening mammogram for malignant neoplasm of breast (principal); R92.323 Mammographic fibroglandular density, bilateral breasts
CPT/HCPCS: 77063; 77067

== ENCOUNTER → 2024-03-27 09:34 | Outpatient (CLI) | payer OTHER, SELFPAY ==
[2024-03-27 10:59] LABS: Add Manual Diff / Slide Review NO; Basophils Absolute Auto 0 /uL (0-100); Basophils Percent Auto 0.4 % (0-2); Eosinophils Absolute Auto 100 /uL (0-450); Eosinophils Percent Auto 1.1 % (2-4); Hematocrit 40.2 % (36-46); Hemoglobin 13.5 g/dL (12.0-16.0); Lymphocytes Absolute Auto 1200 /uL (1100-4500); Lymphocytes Percent Auto 22.8 % (25-40); Mean Corpuscular HGB Conc 33.6 % (30-36); Mean Corpuscular Hemoglobin 29.9 PG (26-34); Mean Corpuscular Volume 88.9 fL (80-100); Monocytes Absolute Auto 400 /uL (0-900); Monocytes Percent Auto 7.5 % (3-14); Neutrophils Absolute Auto 3600 /uL (1500-7000); Neutrophils Percent Auto 68.2 % (50-75); Platelet Count 213 X10^3/uL (150-400); Red Blood Cell Count 4.53 X10^6/uL (4.0-5.2); Red Cell Distribution Width 13.2 % (11.6-14.8); White Blood Cell Count 5.2 X10^3/uL (4.5-11.0)
[2024-03-27 11:18] LABS: Alanine Aminotransferase 16 IU/L (<35); Albumin 4.2 g/dL (3.5-5.0); Albumin Globulin Ratio 1.6 (1.0-2.8); Alkaline Phosphatase 42 U/L (38-126); Aspartate Aminotransferase 23 IU/L (14-36); BUN Creatinine Ratio 24.2 (6-22); Bilirubin Total 0.7 mg/dL (0.2-1.3); Blood Urea Nitrogen 23 mg/dL (7-17); Calcium 9.4 mg/dL (8.4-10.2); Carbon Dioxide 29 mmol/L (22-32); Chloride 106 mmol/L (98-107); Cholesterol 211 mg/dL (140-199); Estimated Glomerular Filt Rate > 60 mL/min (>60); Globulin 2.7 g/dL (1.7-4.1); Glucose 92 mg/dL (80-110); HDL Cholesterol 75 mg/dL (40-60); HEMOLYSIS < 15 (0-50); LDL Cholesterol Calculated 121 mg/dL (<100); Sodium 140 mmol/L (137-145); Total Protein 6.9 g/dL (6.3-8.2); Triglycerides 75 mg/dL (35-150)
[2024-03-27 11:35] LABS: Free T3, Triiodothyronine Free 3.07 pg/mL (2.77-5.27)
[2024-03-27 11:48] LABS: Thyroid Stimulating Hormone 2.13 uIU/mL (0.47-4.68)
[2024-03-27 14:03] LABS: Appearance Urine UA CLEAR; Bilirubin Urine UA NEGATIVE (NEGATIVE); Color Urine UA YELLOW; Glucose Urine UA NEGATIVE (Negative); Ketones Urine UA TRACE (NEGATIVE); Leukocyte Esterase Urine UA NEGATIVE (NEGATIVE); Nitrite Urine UA NEGATIVE (Negative); Occult Blood Urine UA NEGATIVE (Negative); Protein Urine UA TRACE (Negative); Specific Gravity Urine UA 1.025 (1.000-1.035)
[2024-03-27 14:06] LABS: Amorphous Sediment Urine 2+; Bacteria Urine Few (2-10); Culture Indicated Urine Specimen Cultured; Mucus Urine 2+ (Negative); RBC Urine None Seen (0-5/HPF); Squamous Epithelial Cell Urine 5-10 /HPF (0-5/HPF); Urine Volume 5; WBC Urine 1-5/HPF (0-5/HPF)
[2024-03-27 16:15] LABS: Creatinine Urine Random 360.62 mg/dL
[2024-03-27 16:25] LABS: HIV 1 & 2 Ab/Ag 4th Gen Combo NEGATIVE (NEGATIVE)
== END ==
LOC: LAB 09:35
PROVIDERS: PCP Family Medicine; Referring Provider Family Medicine; Visit Provider Family Medicine
DX: I10 Essential (primary) hypertension (principal); R61 Generalized hyperhidrosis
CPT/HCPCS: 36415; 80053; 80061; 81001; 82043; 82570; 84439; 84443; 84481; 85025; 87086; 87389

== ENCOUNTER → 2024-04-04 12:02 | Outpatient (CLI) | payer OTHER, SELFPAY ==
--- NOTE | 2024-04-04 12:03 | DI.RAD.S_ITS ---
PROCEDURE: XR HIP W PEL IF DONE LT 2V INDICATIONS: pain TECHNIQUE: AP pelvis with lateral view(s) of the left hip(s). COMPARISON: None. FINDINGS: Bones: No fractures or dislocations. Pelvic ring appears intact. No suspicious bony lesions. Mild nonuniform joint space narrowing with osteophytic lipping of the acetabulum. Sclerosis across the pubic symphysis, indicating degenerative change. Soft tissues: The visualized bowel gas pattern is normal. No suspicious soft tissue calcifications. IMPRESSION: Mild left hip osteoarthritis. Dictated by: Sharif Hagan M.D. on 04/04/2024 at 14:14 Approved by: Sharif Hagan M.D. on 04/04/2024 at 14:14
== END ==
PROVIDERS: PCP Family Medicine; Referring Provider Family Medicine; Visit Provider Family Medicine
DX: M16.12 Unilateral primary osteoarthritis, left hip (principal); R52 Pain, unspecified
CPT/HCPCS: 73502

== ENCOUNTER 2024-12-06 16:08 | Inpatient (IN) | payer MEDICARE, SELFPAY ==
[2024-12-06] VITALS (8 sets, daily range): BP systolic 132–161; BP diastolic 60–76; PULSE 75–81; RESP 16–24; TEMP 36.4–36.7; O2SAT 94–97; BMI 25.8
--- NOTE | 2024-12-06 | DI.RAD.S_ITS ---
PROCEDURE: XR PELVIS 1-2V INDICATIONS: PRE OP TECHNIQUE: Single view(s) of the pelvis acquired. COMPARISON: None. FINDINGS: Bones: Nondisplaced, subcapital right femoral neck fracture. No other pelvic fractures. Normal bone alignment. Soft tissues: Visualized bowel gas pattern is normal. No suspicious soft tissue calcifications. IMPRESSION: Subcapital right femoral neck fracture. Dictated by: Keysha Vargas M.D. on 12/06/2024 at 20:01 Approved by: Keysha Vargas M.D. on 12/06/2024 at 20:06
--- NOTE | 2024-12-06 16:25 | DI.RAD.S_ITS ---
PROCEDURE: XR FEMUR RT 1V INDICATIONS: fall TECHNIQUE: 2 views of the femur were acquired. COMPARISON: None. FINDINGS: Bones: No fractures or dislocations. No suspicious bony lesions. Seen on the AP view only is linear sclerosis at the femoral neck which is likely projectional as there is no correlate on the lateral view. Soft tissues: No suspicious soft tissue calcifications or masses. IMPRESSION: No acute bony abnormality. Dictated by: Etta Davies M.D. on 12/06/2024 at 16:07 Approved by: Etta Davies M.D. on 12/06/2024 at 16:11
--- NOTE | 2024-12-06 16:27 | DI.RAD.S_ITS ---
PROCEDURE: XR TIBIA FUBULA RT 2V INDICATIONS: fall TECHNIQUE: 2 views of the tibia and fibula were acquired. COMPARISON: [facility], CR, XR TIBIA FIBULA RT 2V, 01/18/2022, 9:34. FINDINGS: Bones: No fractures or dislocations. No suspicious bony lesions. Soft tissues: No suspicious soft tissue calcifications or masses. IMPRESSION: No acute bony abnormality. Dictated by: Etta Davies M.D. on 12/06/2024 at 16:11 Approved by: Etta Davies M.D. on 12/06/2024 at 16:12
--- NOTE | 2024-12-06 16:35 | ED_ITS ---
HPI - Fall <Jessica Carreon PA-C - Last Filed: 12/06/24 19:03> General Chief Complaint: Fall Stated Complaint: Fall, no blood thinners, lt leg px Time Seen by Provider: 12/06/24 16:21 Source: patient and family Mode of arrival: Wheelchair History of Present Illness HPI Narrative: Ms. Mcmahon is a very pleasant 79-year-old female with a past medical history of hypertension, GERD, hyperlipidemia who presents to the emergency department for right leg pain after a fall that occurred earlier today at home. Patient states that as she was going down a small step from the kitchen to the living room she fell forward landing on her knees and then her belly. Her was waiting in the car for her and she states that she fell because she was rushing to try to get to the car. He came back inside and found her lying on the floor on her side and he had to assist her to the standing position and then a sister to walk to the car. She then went to a friend's house for dinner. She sat for about 1 hour at dinner and then she was unable to get up from the dinner chair. She is complaining of right leg pain from the hip to the knee, pain is primarily the right hip. She needed help to get into the car and come to the ED. At this time she has no longer able to ambulate due to the right hip pain. She took 2 Aleve prior to arrival. She denies left hip pain, back pain, neck pain, headache or head trauma, arm pain, wrist pain, hand pain, bilateral knee pain, ankle pain, feet pain. No abdominal pain, shortness of breath, chest pain, dizziness or weakness. No numbness or tingling. No dysuria. Related Data Home Medications Medication Instructions Recorded Confirmed ascorbic acid (vitamin C) 500 mg 1 tab PO QPM ##0 07/06/17 12/07/24 tablet calcium citrate 1 tab PO QPM ##0 07/06/17 12/07/24 cholecalciferol (vitamin D3) 25 1 tab PO QPM ##0 07/06/17 12/07/24 mcg (1,000 unit) tablet (Vitamin D3) magnesium 200 mg tablet 1 tab PO QPM ##0 07/06/17 12/07/24 multivitamin (Multiple Vitamins 1 tab PO QPM ##0 07/06/17 12/07/24 tablet) vitamin A 3,000 mcg (10,000 unit) 1 cap PO QPM ##0 07/06/17 12/07/24 capsule aspirin 81 mg tablet,delayed 81 mg PO DAILY 09/17/18 12/07/24 release (Adult Aspirin Regimen) metoprolol tartrate 50 mg tablet 75 mg PO QPM 12/07/24 12/07/24 propranolol 10 mg tablet 10 mg PO TID PRN Anxiety 12/07/24 12/07/24 Previous Rx's Medication Instructions Recorded simvastatin 20 mg tablet 20 mg PO BEDTIME #90 tabs 06/08/21 Allergies Allergy/AdvReac Type Severity Reaction Status Date / Time codeine Allergy UNKNOWN Verified 12/06/24 16:11 Review of Systems <Jessica Carreon PA-C - Last Filed: 12/06/24 19:03> Review of Systems ROS Unobtainable: All systems reviewed & are unremarkable except as noted in HPI and below Patient History <Jessica Carreon PA-C - Last Filed: 12/06/24 19:03> Medical History (Updated 12/06/24 @ 19:38 by Igor Spicer MD) Ruptured tympanic membrane (2013) Nonsustained supraventricular tachycardia Surgical History History of hysterectomy for malignancy (2006) Social History marital status: number of children: 2 household members: spouse lives independently: Yes caregiver/support person: No housing: house occupational status: previously employed Smoking Status: Former smoker second hand exposure: No alcohol intake: current substance use type: does not use Smoking Status: Former smoker alcohol intake frequency: 0-2 drinks per day Exam <Jessica Carreon PA-C - Last Filed: 12/06/24 19:03> Narrative Exam Narrative: GENERAL: 79 year old patient appears stated age. Elderly frail patient, in no acute distress, lying in stretcher. She is able to roll onto her left side and sit upright with the assistance. HEAD: Atraumatic. Normocephalic. ENT: Nose without bleeding, purulent drainage. NECK: Trachea midline. Cervical ROM intact. CARDIOVASCULAR: Regular rate and rhythm. RESPIRATORY: ?Nonlabored respirations. ?Speaking in clear, full sentences. ?Clear to auscultation. Breath sounds equal bilaterally. No wheezes, rales, or rhonchi. ? GASTROINTESTINAL: Abdomen soft, non-tender, nondistended. EXTREMITIES: Tenderness to palpation of anterior lateral and posterior right hip joint, there is no focal tenderness but diffuse tenderness in this area. No overlying bruising or abnormalities. No obvious deformities. No tenderness to palpation of bilateral thighs, knees, shins, ankles, feet. No tenderness to palpation of upper extremities or snuffbox bilaterally. BACK: No midline spinal tenderness or deformities. There is right hip pain and some pain in the SI joint region. No tenderness to palpation of the tailbone. Pain with right straight leg raise. Negative left straight leg raise. NEURO: Alert and oriented to person place and time. Responds to questions appropriately but does need questions repeated frequently. Sensation intact to light touch throughout upper and lower extremities. SKIN: No rash or erythema of visible areas Initial Vital Signs Initial Vital Signs: Vital Signs Temperature 97.6 F 12/06/24 16:11 Pulse Rate 81 12/06/24 16:11 Respiratory Rate 17 12/06/24 16:11 Blood Pressure 132/60 12/06/24 16:11 Pulse Oximetry 97 12/06/24 16:11 Oxygen Delivery Method Room Air 12/06/24 16:11 <Igor Spicer MD - Last Filed: 12/07/24 16:09> Initial Vital Signs Initial Vital Signs: Vital Signs Temperature 97.6 F 12/06/24 16:11 Pulse Rate 81 12/06/24 16:11 Respiratory Rate 17 12/06/24 16:11 Blood Pressure 132/60 12/06/24 16:11 Pulse Oximetry 97 12/06/24 16:11 Oxygen Delivery Method Room Air 12/06/24 16:11 Course <Jessica Carreon PA-C - Last Filed: 12/06/24 19:03> Orders Ordered: Acetaminophen (Acetaminophen 325 Mg Tablet) 650 mg PO Q6H PRN PRN Reason: Fever/Mild Pain (1-3) Aspirin (Aspirin Ec 81 Mg Tablet) 81 mg PO BID [facility] Atorvastatin Calcium (Atorvastatin 20 Mg Tablet) 10 mg PO BEDTIME [facility] Last Admin: 12/06/24 22:19 Dose: 10 mg Documented By: DR Benzocaine (Benzocaine/Menthol 1 [place] Pkt) 1 each PO PRN PRN PRN Reason: Sore Throat Docusate Sodium (Docusate 100 Mg Capsule) 100 mg PO BID [facility] Lactated Ringer's (Lactated Ringers) 1,000 mls @ 100 mls/hr IV CONT [facility] Last Admin: 12/07/24 13:05 Dose: 100 mls/hr Documented By: ARMIN Cefazolin Sodium/Dextrose (Ancef) 100 mls @ 200 mls/hr IV Q8H [facility] Stop: 12/08/24 01:29 Ibuprofen (Ibuprofen 400 Mg Tablet) 400 mg PO Q4H PRN PRN Reason: Pain, Mild (1-3) Lorazepam (Lorazepam 2 Mg/Ml Inj) 0.5 mg IV Q6HR PRN PRN Reason: Anxiety Last Admin: 12/07/24 04:50 Dose: 0.5 mg Documented By: Admin: 12/06/24 22:19 Dose: 0.5 mg Documented By: Metoprolol Tartrate (Metoprolol Ir 50 Mg Tablet) 75 mg PO BEDTIME [facility] Last Admin: 12/06/24 22:19 Dose: 75 mg Documented By: Naloxone HCl (Naloxone 0.4 Mg/Ml Vial) 0.2 mg IV Q2MIN PRN PRN Reason: Opiate Reversal Ondansetron HCl (Ondansetron 4 Mg/2 Ml Inj) 4 mg IV Q4HR PRN PRN Reason: Nausea And Vomiting Ondansetron HCl (Ondansetron 4 Mg Odt) 4 mg PO Q4HR PRN PRN Reason: Nausea Oxycodone HCl (Oxycodone Ir 5 Mg Tablet) 5 mg PO Q3H PRN PRN Reason: Pain, Moderate (4-6) Last Admin: 12/07/24 04:18 Dose: 5 mg Documented By: Admin: 12/06/24 22:18 Dose: 5 mg Documented By: Polyethylene Glycol (Polyethylene Glycol 3350 17 Gm Powd.Pack) 17 gm PO DAILY PRN PRN Reason: Constipation Discontinued Medications Acetaminophen (Acetaminophen 325 Mg Tablet) 650 mg PO NOW ONE Stop: 12/06/24 17:26 Last Admin: 12/06/24 17:53 Dose: 650 mg Documented By: SVEN Acetaminophen (Acetaminophen 325 Mg Tablet) 650 mg PO Q6H PRN PRN Reason: Fever/Mild Pain (1-3) Bupivacaine HCl/Epinephrine Bitart (Bupivacaine 0.25% W/ Epi 30 Ml Vial) 60 ml INJ NOW ONE Stop: 12/07/24 10:14 Last Admin: 12/07/24 10:29 Dose: 60 ml Documented By: IRINEO Bupivacaine Liposome (Bupivacaine Liposome 266 Mg/20 Ml Vial) 266 mg INJ NOW ONE Stop: 12/07/24 10:32 Last Admin: 12/07/24 10:31 Dose: 266 mg Documented By: IRINEO Dexamethasone (Dexamethasone 10 Mg/Ml Vial) 8 mg IV NOW PRN PRN Reason: Nausea And Vomiting Epinephrine HCl (Epinephrine 1 Mg/Ml) 1 mg SUBCUT NOW ONE Stop: 12/07/24 10:33 Last Admin: 12/07/24 10:34 Dose: 1 mg Documented By: IRINEO Famotidine (Famotidine 20 Mg/2 Ml Vial) 20 mg IV NOW [facility] Last Admin: 12/07/24 09:02 Dose: 20 mg Documented By: SANTIAGO Fentanyl (Fentanyl 100 Mcg/2 Ml Inj) 0 mcg IV Q5MIN PRN PRN Reason: Pain, Severe (7-10) Hydromorphone HCl (Hydromorphone 2 Mg Tablet) 4 mg PO Q4HR PRN PRN Reason: Pain, Severe (7-10) Hydromorphone HCl (Hydromorphone 1 Mg Inj) 0 mg IV Q5MIN PRN PRN Reason: Pain, Mild (1-3) Hydroxyzine HCl (Hydroxyzine 50 Mg/Ml Inj) 25 mg IM NOW PRN PRN Reason: Pain, Mild (1-3) Hydroxyzine HCl (Hydroxyzine Hcl 25 Mg Tablet) 25 mg PO NOW PRN PRN Reason: Pain, Mild (1-3) Lactated Ringer's (Lactated Ringers) 1,000 mls @ 42 mls/hr IV CONT [facility] Last Admin: 12/07/24 11:51 Dose: 42 mls/hr Documented By: Infusion: 12/07/24 11:51 Dose: Infused Documented By: Admin: 12/07/24 08:43 Dose: 42 mls/hr Documented By: SANTIAGO Lactated Ringer's (Lactated Ringers) 1,000 mls @ 120 mls/hr IV CONT [facility] Last Admin: 12/07/24 12:03 Dose: 120 mls/hr Documented By: SANTIAGO Tranexamic Acid 1,000 mg/ (Sodium Chloride) 100 mls @ 200 mls/hr IV NOW ONE Stop: 12/07/24 11:37 Last Admin: 12/07/24 11:09 Dose: 200 mls/hr Documented By: MAGNOLIA Naloxone HCl (Naloxone 0.4 Mg/Ml Vial) 0.2 mg IV Q2MIN PRN PRN Reason: Opiate Reversal Non-Formulary Medication (Simvastatin) 20 mg PO BEDTIME [facility] Ondansetron HCl (Ondansetron 4 Mg Odt) 4 mg PO Q8HR PRN PRN Reason: Nausea And Vomiting Ondansetron HCl (Ondansetron 4 Mg/2 Ml Inj) 4 mg IV NOW PRN PRN Reason: Nausea And Vomiting Oxycodone HCl (Oxycodone Ir 5 Mg Tablet) 5 mg PO [place]OW PRN PRN Reason: Mild or moderate pain Oxycodone HCl (Oxycodone Ir 5 Mg Tablet) 5 mg PO Q3H PRN PRN Reason: Pain, Moderate (4-6) Sodium Chloride (Sodium Chloride 0.9% Flush) 10 ml IV BID [facility] Last Admin: 12/07/24 10:38 Dose: Not Given Documented By: ARMIN Vital Signs Vital signs: Vital Signs - 8 hr 12/06/24 16:11 Temperature 97.6 F Pulse Rate 81 Respiratory Rate 17 Blood Pressure 132/60 Pulse Oximetry 97 Oxygen Delivery Method Room Air <Igor Spicer MD - Last Filed: 12/07/24 16:09> Orders Ordered: Acetaminophen (Acetaminophen 325 Mg Tablet) 650 mg PO Q6H PRN PRN Reason: Fever/Mild Pain (1-3) Aspirin (Aspirin Ec 81 Mg Tablet) 81 mg PO BID [facility] Atorvastatin Calcium (Atorvastatin 20 Mg Tablet) 10 mg PO BEDTIME [facility] Last Admin: 12/06/24 22:19 Dose: 10 mg Documented By: DR Brennancaine (Benzocaine/Menthol 1 [place] Pkt) 1 each PO PRN PRN PRN Reason: Sore Throat Docusate Sodium (Docusate 100 Mg Capsule) 100 mg PO BID [facility] Lactated Ringer's (Lactated Ringers) 1,000 mls @ 100 mls/hr IV CONT [facility] Last Admin: 12/07/24 13:05 Dose: 100 mls/hr Documented By: ARMIN Cefazolin Sodium/Dextrose (Ancef) 100 mls @ 200 mls/hr IV Q8H [facility] Stop: 12/08/24 01:29 Ibuprofen (Ibuprofen 400 Mg Tablet) 400 mg PO Q4H PRN PRN Reason: Pain, Mild (1-3) Lorazepam (Lorazepam 2 Mg/Ml Inj) 0.5 mg IV Q6HR PRN PRN Reason: Anxiety Last Admin: 12/07/24 04:50 Dose: 0.5 mg Documented By: Admin: 12/06/24 22:19 Dose: 0.5 mg Documented By: Metoprolol Tartrate (Metoprolol Ir 50 Mg Tablet) 75 mg PO BEDTIME [facility] Last Admin: 12/06/24 22:19 Dose: 75 mg Documented By: Naloxone HCl (Naloxone 0.4 Mg/Ml Vial) 0.2 mg IV Q2MIN PRN PRN Reason: Opiate Reversal Ondansetron HCl (Ondansetron 4 Mg/2 Ml Inj) 4 mg IV Q4HR PRN PRN Reason: Nausea And Vomiting Ondansetron HCl (Ondansetron 4 Mg Odt) 4 mg PO Q4HR PRN PRN Reason: Nausea Oxycodone HCl (Oxycodone Ir 5 Mg Tablet) 5 mg PO Q3H PRN PRN Reason: Pain, Moderate (4-6) Last Admin: 12/07/24 04:18 Dose: 5 mg Documented By: Admin: 12/06/24 22:18 Dose: 5 mg Documented By: Polyethylene Glycol (Polyethylene Glycol 3350 17 Gm Powd.Pack) 17 gm PO DAILY PRN PRN Reason: Constipation Discontinued Medications Acetaminophen (Acetaminophen 325 Mg Tablet) 650 mg PO NOW ONE Stop: 12/06/24 17:26 Last Admin: 12/06/24 17:53 Dose: 650 mg Documented By: SVEN Acetaminophen (Acetaminophen 325 Mg Tablet) 650 mg PO Q6H PRN PRN Reason: Fever/Mild Pain (1-3) Bupivacaine HCl/Epinephrine Bitart (Bupivacaine 0.25% W/ Epi 30 Ml Vial) 60 ml INJ NOW ONE Stop: 12/07/24 10:14 Last Admin: 12/07/24 10:29 Dose: 60 ml Documented By: IRINEO Bupivacaine Liposome (Bupivacaine Liposome 266 Mg/20 Ml Vial) 266 mg INJ NOW ONE Stop: 12/07/24 10:32 Last Admin: 12/07/24 10:31 Dose: 266 mg Documented By: IRINEO Dexamethasone (Dexamethasone 10 Mg/Ml Vial) 8 mg IV NOW PRN PRN Reason: Nausea And Vomiting Epinephrine HCl (Epinephrine 1 Mg/Ml) 1 mg SUBCUT NOW ONE Stop: 12/07/24 10:33 Last Admin: 12/07/24 10:34 Dose: 1 mg Documented By: IRINEO Famotidine (Famotidine 20 Mg/2 Ml Vial) 20 mg IV NOW [facility] Last Admin: 12/07/24 09:02 Dose: 20 mg Documented By: SANTIAGO Fentanyl (Fentanyl 100 Mcg/2 Ml Inj) 0 mcg IV Q5MIN PRN PRN Reason: Pain, Severe (7-10) Hydromorphone HCl (Hydromorphone 2 Mg Tablet) 4 mg PO Q4HR PRN PRN Reason: Pain, Severe (7-10) Hydromorphone HCl (Hydromorphone 1 Mg Inj) 0 mg IV Q5MIN PRN PRN Reason: Pain, Mild (1-3) Hydroxyzine HCl (Hydroxyzine 50 Mg/Ml Inj) 25 mg IM NOW PRN PRN Reason: Pain, Mild (1-3) Hydroxyzine HCl (Hydroxyzine Hcl 25 Mg Tablet) 25 mg PO NOW PRN PRN Reason: Pain, Mild (1-3) Lactated Ringer's (Lactated Ringers) 1,000 mls @ 42 mls/hr IV CONT [facility] Last Admin: 12/07/24 11:51 Dose: 42 mls/hr Documented By: Infusion: 12/07/24 11:51 Dose: Infused Documented By: Admin: 12/07/24 08:43 Dose: 42 mls/hr Documented By: SANTIAGO Lactated Ringer's (Lactated Ringers) 1,000 mls @ 120 mls/hr IV CONT [facility] Last Admin: 12/07/24 12:03 Dose: 120 mls/hr Documented By: SANTIAGO Tranexamic Acid 1,000 mg/ (Sodium Chloride) 100 mls @ 200 mls/hr IV NOW ONE Stop: 12/07/24 11:37 Last Admin: 12/07/24 11:09 Dose: 200 mls/hr Documented By: MAGNOLIA Naloxone HCl (Naloxone 0.4 Mg/Ml Vial) 0.2 mg IV Q2MIN PRN PRN Reason: Opiate Reversal Non-Formulary Medication (Simvastatin) 20 mg PO BEDTIME [facility] Ondansetron HCl (Ondansetron 4 Mg Odt) 4 mg PO Q8HR PRN PRN Reason: Nausea And Vomiting Ondansetron HCl (Ondansetron 4 Mg/2 Ml Inj) 4 mg IV NOW PRN PRN Reason: Nausea And Vomiting Oxycodone HCl (Oxycodone Ir 5 Mg Tablet) 5 mg PO [place] PRN PRN Reason: Mild or moderate pain Oxycodone HCl (Oxycodone Ir 5 Mg Tablet) 5 mg PO Q3H PRN PRN Reason: Pain, Moderate (4-6) Sodium Chloride (Sodium Chloride 0.9% Flush) 10 ml IV BID [facility] Last Admin: 12/07/24 10:38 Dose: Not Given Documented By: ARMIN Vital Signs Vital signs: Vital Signs - 8 hr 12/06/24 16:11 Temperature 97.6 F Pulse Rate 81 Respiratory Rate 17 Blood Pressure 132/60 Pulse Oximetry 97 Oxygen Delivery Method Room Air MDM - Fall <Jessica Carreon PA-C - Last Filed: 12/06/24 19:03> Medical Records Attestation: I reviewed the patient's medical records. Medical records narrative: Diagnosed with dementia 03/26/2024. Lab Data 12/06/24 19:50 12/06/24 19:50 Labs: Lab Results 12/06/24 12/06/24 Range/Units 19:50 20:15 WBC 10.3 (4.5-11.0) X10^3/uL RBC 4.33 (4.0-5.2) X10^6/uL Hgb 13.0 (12.0-16.0) g/dL Hct 38.0 (36-46) % MCV 87.9 (80-100) fL MCH 30.1 (26-34) PG MCHC 34.2 (30-36) % RDW 13.4 (11.6-14.8) % Plt Count 193 (150-400) X10^3/uL Neut % (Auto) 83.3 H (50-75) % Lymph % (Auto) 9.8 L (25-40) % [place] % (Auto) 5.6 (3-14) % Eos % (Auto) 0.6 L (2-4) % Baso % (Auto) 0.7 (0-2) % Neut # (Auto) 8600 H (3415-1913) /uL Lymph # (Auto) 1000 L (4566-2411) /uL [place] # (Auto) 600 (0-900) /uL Eos # (Auto) 100 (0-450) /uL Baso # (Auto) 100 (0-100) /uL PT 11.6 (9.4-12.5) SECONDS INR 1.0 (0.9-1.3) APTT 27 (25.1-36.5) SECONDS Sodium 139 (137-145) mmol/L Potassium 4.0 (3.4-5.1) mmol/L Chloride 104 (98-107) mmol/L Carbon Dioxide 28 (22-32) mmol/L BUN 31 H (7-17) mg/dL Creatinine 0.79 (0.52-1.04) mg/dL Estimated GFR > 60 (>60) mL/min BUN/Creatinine Ratio 39.2 H (6-22) Glucose 101 (80-110) mg/dL Calcium 8.8 (8.4-10.2) mg/dL Total Bilirubin 0.5 (0.2-1.3) mg/dL AST 32 (14-36) IU/L ALT 28 (<35) IU/L Alkaline Phosphatase 47 (38-126) U/L Total Protein 6.7 (6.3-8.2) g/dL Albumin 3.9 (3.5-5.0) g/dL Globulin 2.8 (1.7-4.1) g/dL Albumin/Globulin Ratio 1.4 (1.0-2.8) Urine RBC None seen (0-5/HPF) Urine WBC 0-1/hpf (0-5/HPF) Ur Squamous Epith Cells None seen (0-5/HPF) Amorphous Sediment 1+ Urine Bacteria None seen (None) Ur Culture Indicated? Cult not indicated Vol Urine Centrifuged 10ml (spun) MDM Narrative Medical decision making narrative: 79-year-old female with a past medical history of hypertension, GERD, hyperlipidemia who presents to the emergency department for right leg pain after a mechanical fall that occurred earlier today at home. She was ambulatory after the fall however pain has since gotten worse. Review prior records which reveal history of dementia. is an independent historian. Differential diagnosis includes but is not limited to right hip fracture, lumbar compression fracture, muscle strain, sprain, etc. On exam the patient is in no acute distress, nontoxic appearing, vital signs within normal limits. She is alert and oriented however does question frequently and is consistent with her history of dementia that was previously documented. states that he is at her baseline. She has been having right hip pain since falling earlier. Patient is adamant that she tripped and fell while trying to go over a step and there was no syncope loss of consciousness or head trauma. Her only pain is right hip. While she was ambulatory earlier, she is now unable to walk due to the pain. X-rays obtained in triage, we will add on CT lumbar spine and CT hip. At this time patient declines opioids so we will only treat with acetaminophen. Pelvis CT reveals possibly incomplete compressive side fracture of the right femoral neck. This is consistent with the patient's pain. Lumbar CT reveals degenerative disc disease without acute osseous abnormality. X-ray right femur and tib-fib were negative. We will consult on-call orthopedic surgeon, Dr. Briscoe. Re attempted to stand and ambulate patient however she is unable to ambulate due to significant right hip pain. Discussed case with the nighttime ED physician Dr. Spicer. Baseline labs, UA, EKG, chest x-ray ordered. Discussed case with on-call orthopedic surgeon Dr. Briscoe who will see the patient at bedside, she will require admission to hospitalist service. Patient verbalized understanding and is agreeable to admission, in agreement as well. <Igor Spicer MD - Last Filed: 12/07/24 16:09> Lab Data Attestation: I reviewed the patient's lab results. Lab results narrative: White blood cell count 97106, hemoglobin 13, platelets adequate. BUN 31 creatinine 0.79 adequate renal function. Glucose 101. Electrolytes unremarkable. Liver functions normal. PT INR 1.0 normal. Urine dip negative. Labs: Lab Results 12/06/24 12/06/24 Range/Units 19:50 20:15 WBC 10.3 (4.5-11.0) X10^3/uL RBC 4.33 (4.0-5.2) X10^6/uL Hgb 13.0 (12.0-16.0) g/dL Hct 38.0 (36-46) % MCV 87.9 (80-100) fL MCH 30.1 (26-34) PG MCHC 34.2 (30-36) % RDW 13.4 (11.6-14.8) % Plt Count 193 (150-400) X10^3/uL Neut % (Auto) 83.3 H (50-75) % Lymph % (Auto) 9.8 L (25-40) % [place] % (Auto) 5.6 (3-14) % Eos % (Auto) 0.6 L (2-4) % Baso % (Auto) 0.7 (0-2) % Neut # (Auto) 8600 H (0809-0136) /uL Lymph # (Auto) 1000 L (0929-0488) /uL [place] # (Auto) 600 (0-900) /uL Eos # (Auto) 100 (0-450) /uL Baso # (Auto) 100 (0-100) /uL PT 11.6 (9.4-12.5) SECONDS INR 1.0 (0.9-1.3) APTT 27 (25.1-36.5) SECONDS Sodium 139 (137-145) mmol/L Potassium 4.0 (3.4-5.1) mmol/L Chloride 104 (98-107) mmol/L Carbon Dioxide 28 (22-32) mmol/L BUN 31 H (7-17) mg/dL Creatinine 0.79 (0.52-1.04) mg/dL Estimated GFR > 60 (>60) mL/min BUN/Creatinine Ratio 39.2 H (6-22) Glucose 101 (80-110) mg/dL Calcium 8.8 (8.4-10.2) mg/dL Total Bilirubin 0.5 (0.2-1.3) mg/dL AST 32 (14-36) IU/L ALT 28 (<35) IU/L Alkaline Phosphatase 47 (38-126) U/L Total Protein 6.7 (6.3-8.2) g/dL Albumin 3.9 (3.5-5.0) g/dL Globulin 2.8 (1.7-4.1) g/dL Albumin/Globulin Ratio 1.4 (1.0-2.8) Urine RBC None seen (0-5/HPF) Urine WBC 0-1/hpf (0-5/HPF) Ur Squamous Epith Cells None seen (0-5/HPF) Amorphous Sediment 1+ Urine Bacteria None seen (None) Ur Culture Indicated? Cult not indicated Vol Urine Centrifuged 10ml (spun) Imaging Data Chest x-ray: Radiologist's Impression: [address] [address] XRay Report Signed Patient: Cherry Mcmahon MR#: [id number] : 1945 Acct:[id number] Age/Sex: 79 / F Date of Service: 12/06/24 Loc: 90A-1 Accession Number: [id number] Procedure: XR chest 1V Ordering Provider: Jessica Carreon PA-C PROCEDURE: XR CHEST 1V INDICATIONS: fall; r hip fracture TECHNIQUE: One view of the chest was acquired. COMPARISON: None. FINDINGS: Surgical changes and devices: None. Lungs and pleura: Lungs are clear. No pleural effusions or pneumothorax. Mediastinum: Mediastinal contours appear normal. Heart size is normal. Bones and chest wall: No suspicious bony lesions. Overlying soft tissues appear unremarkable. IMPRESSION: No acute cardiopulmonary abnormality is seen. Dictated by: Keysha Vargas M.D. on 12/06/2024 at 20:00 Approved by: Keysha Vargas M.D. on 12/06/2024 at 20:00 CT lumbar spine: Radiologist's Impression: [address] [address] [address] Scan Report Signed Patient: Cherry Mcmahon MR#: [id number] : 1945 Acct:[id number] Age/Sex: 79 / F Date of Service: 12/06/24 Loc: ED Accession Number: [id number] Procedure: CT lumbar spine wo con Ordering Provider: Jessica Carreon PA-C PROCEDURE: CT LUMBAR SPINE WO CON INDICATIONS: fall; right hip pain TECHNIQUE: Noncontrast 3 mm thick sections acquired from the T12 level to the sacrum. Sagittal and coronal reformats were constructed. For radiation dose reduction, the following was used: automated exposure control. COMPARISON: None. FINDINGS: Image quality: Excellent. Bones: Vertebral bodies maintain normal height without fracture. There is dextrocurvature of the lumbar spine centered at L3-4 with associated degenerative changes. Lower lumbar facet arthropathy is present. Mineralization is normal. The bony canal is maintained. Soft tissues: No retroperitoneal masses or hematomas. Visualized aorta is normal in caliber. IMPRESSION: Degenerative disc disease without acute osseous abnormality. Dictated by: Etta Davies M.D. on 12/06/2024 at 16:57 Approved by: Etta Davies M.D. on 12/06/2024 at 17:01 CT pelvis: Radiologist's Impression: [address] [address] [address] Scan Report Signed Patient: Cherry Mcmahon MR#: [id number] : 1945 Acct:[id number] Age/Sex: 79 / F Date of Service: 12/06/24 Loc: ED Accession Number: [id number] Procedure: CT pelvis wo con Ordering Provider: Jessica Carreon PA-C PROCEDURE: CT PEL WO CON INDICATIONS: fall; r hip pain concern for fx TECHNIQUE: Noncontrast 3 mm axial sections acquired through the bony pelvis, with coronal and sagittal reformatting. COMPARISON: None. FINDINGS: Image quality: Excellent. Bones: There is a small linear lucency at the for medial cortex of the right femoral neck . There is also a faint linear area of sclerosis across the femoral neck extending from this area of lucency which correlates with the radiographic findings. There is no definite lucency on the tension side of the femoral neck cortex. Mineralization is normal. Alignment is anatomic. Joint spacing is maintained. Soft tissues: Visible pelvic contents and muscles have a normal appearance. IMPRESSION: Possibly incomplete compressive side fracture of the right femoral neck. Dictated by: Etta Davies M.D. on 12/06/2024 at 16:51 Approved by: Etta Davies M.D. on 12/06/2024 at 16:57 Extremity x-ray #1: Radiologist's Impression: [address] [address] XRay Report Signed Patient: Cherry Mcmahon MR#: [id number] : 1945 Acct:[id number] Age/Sex: 79 / F Date of Service: 12/06/24 Loc: ED Accession Number: [id number] Procedure: XR tibia fibula RT 2V Ordering Provider: Jessica Carreon-C PROCEDURE: XR TIBIA FUBULA RT 2V INDICATIONS: fall TECHNIQUE: 2 views of the tibia and fibula were acquired. COMPARISON: [facility], CR, XR TIBIA FIBULA RT 2V, 01/18/2022, 9:34. FINDINGS: Bones: No fractures or dislocations. No suspicious bony lesions. Soft tissues: No suspicious soft tissue calcifications or masses. IMPRESSION: No acute bony abnormality. Dictated by: Etta Davies M.D. on 12/06/2024 at 16:11 Approved by: Etta Davies M.D. on 12/06/2024 at 16:12 Extremity x-ray #2: Radiologist's Impression: [place] [address] XRay Report Signed Patient: Cherry Mcmahon MR#: [id number] : 1945 Acct:[id number] Age/Sex: 79 / F Date of Service: 12/06/24 Loc: ED Accession Number: [id number] Procedure: XR femur RT 1V Ordering Provider: Jessica Carreon-C PROCEDURE: XR FEMUR RT 1V INDICATIONS: fall TECHNIQUE: 2 views of the femur were acquired. COMPARISON: None. FINDINGS: Bones: No fractures or dislocations. No suspicious bony lesions. Seen on the AP view only is linear sclerosis at the femoral neck which is likely projectional as there is no correlate on the lateral view. Soft tissues: No suspicious soft tissue calcifications or masses. IMPRESSION: No acute bony abnormality. Dictated by: Etta Davies M.D. on 12/06/2024 at 16:07 Approved by: Etta Davies M.D. on 12/06/2024 at 16:11 ECG Data Attestation: I personally reviewed and interpreted this ECG as follows: Interpretation: Normal sinus rhythm with rate of 81, no obvious ST segment elevation or depression changes. LA 194, QRS 80, QTC 425. MDM Narrative Medical decision making narrative: 79-year-old female with a past medical history of hypertension, GERD, hyperlipidemia who presents to the emergency department for right leg pain after a mechanical fall that occurred earlier today at home. She was ambulatory after the fall however pain has since gotten worse. Review prior records which reveal history of dementia. is an independent historian. Differential diagnosis includes but is not limited to right hip fracture, lumbar compression fracture, muscle strain, sprain, etc. On exam the patient is in no acute distress, nontoxic appearing, vital signs within normal limits. She is alert and oriented however does question frequently and is consistent with her history of dementia that was previously documented. states that he is at her baseline. She has been having right hip pain since falling earlier. Patient is adamant that she tripped and fell while trying to go over a step and there was no syncope loss of consciousness or head trauma. Her only pain is right hip. While she was ambulatory earlier, she is now unable to walk due to the pain. X-rays obtained in triage, we will add on CT lumbar spine and CT hip. At this time patient declines opioids so we will only treat with acetaminophen. Pelvis CT reveals possibly incomplete compressive side fracture of the right femoral neck. This is consistent with the patient's pain. Lumbar CT reveals degenerative disc disease without acute osseous abnormality. X-ray right femur and tib-fib were negative. We will consult on-call orthopedic surgeon, Dr. Briscoe. Re attempted to stand and ambulate patient however she is unable to ambulate due to significant right hip pain. Discussed case with the nighttime ED physician Dr. Spicer. Baseline labs, UA, EKG, chest x-ray ordered. Discussed case with on-call orthopedic surgeon Dr. Briscoe who will see the patient at bedside, she will require admission to hospitalist service. Patient verbalized understanding and is agreeable to admission, in agreement as well. 12/06/24 1830, Nayan. 79-year-old female had ground level fall, on imaging has right femoral neck fracture with some impaction, seen in person in ED by orthopedic surgery Dr Briscoe, who consulted, requests admission to hospitalist/PCP service, no [place] for now, likely surgical repair in the morning. Preoperative studies sent. Case discussed with Dr. Briscoe, surgery plan 9:00 a.m. in the morning, admit to hospitalist. Subsequently discovered patient has PCP Dr. Morales. Preoperative studies pending. EKG unremarkable, chest x-ray clear. Labs pending. Lab studies: White blood cell count 97768, hemoglobin 13, platelets adequate. BUN 31 creatinine 0.79 adequate renal function. Glucose 101. Electrolytes unremarkable. Liver functions normal. PT INR 1.0 normal. Urine dip negative. We will contact PCP Dr. Barkley [phone], case discussed with Dr. Barkley who accepts patient for admission Critical Care Time <Igor Spicer MD - Last Filed: 12/07/24 16:09> Critical Care Time Critical Care Time: Yes Total Critical Care Time: 35 Attestation: The high probability of a clinically significant, sudden or life threatening deterioration of the [musculoskeletal, cardiopulmonary, metabolic, renal] system(s) required my full and direct attention, intervention and personal management. The aggregate critical care time was [35] minutes. This time is in addition to time spent performing reported procedures but includes the following: [x] Data Review and interpretation [x] Patient assessment and monitoring of vital signs [x] Documentation [x] Medication orders and management Discharge Plan Departure Patient Disposition: Admitted As Inpatient Clinical Impression: Fracture of femoral neck, right, closed Admit Date/Time: 12/06/24 20:52 Admit Provider: Gerri Barklye
--- NOTE | 2024-12-06 17:25 | DI.CT.S_ITS ---
PROCEDURE: CT LUMBAR SPINE WO CON INDICATIONS: fall; right hip pain TECHNIQUE: Noncontrast 3 mm thick sections acquired from the T12 level to the sacrum. Sagittal and coronal reformats were constructed. For radiation dose reduction, the following was used: automated exposure control. COMPARISON: None. FINDINGS: Image quality: Excellent. Bones: Vertebral bodies maintain normal height without fracture. There is dextrocurvature of the lumbar spine centered at L3-4 with associated degenerative changes. Lower lumbar facet arthropathy is present. Mineralization is normal. The bony canal is maintained. Soft tissues: No retroperitoneal masses or hematomas. Visualized aorta is normal in caliber. IMPRESSION: Degenerative disc disease without acute osseous abnormality. Dictated by: Etta Davies M.D. on 12/06/2024 at 16:57 Approved by: Etta Davies M.D. on 12/06/2024 at 17:01
--- NOTE | 2024-12-06 17:25 | DI.CT.S_ITS ---
PROCEDURE: CT PEL WO CON INDICATIONS: fall; r hip pain concern for fx TECHNIQUE: Noncontrast 3 mm axial sections acquired through the bony pelvis, with coronal and sagittal reformatting. COMPARISON: None. FINDINGS: Image quality: Excellent. Bones: There is a small linear lucency at the for medial cortex of the right femoral neck . There is also a faint linear area of sclerosis across the femoral neck extending from this area of lucency which correlates with the radiographic findings. There is no definite lucency on the tension side of the femoral neck cortex. Mineralization is normal. Alignment is anatomic. Joint spacing is maintained. Soft tissues: Visible pelvic contents and muscles have a normal appearance. IMPRESSION: Possibly incomplete compressive side fracture of the right femoral neck. Dictated by: Etta Davies M.D. on 12/06/2024 at 16:51 Approved by: Etta Davies M.D. on 12/06/2024 at 16:57
[2024-12-06] MEDS: ACETAMINOPHEN 325 MG TABLET 650 MG PO (17:53)
--- NOTE | 2024-12-06 18:49 | DI.RAD.S_ITS ---
PROCEDURE: XR CHEST 1V INDICATIONS: fall; r hip fracture TECHNIQUE: One view of the chest was acquired. COMPARISON: None. FINDINGS: Surgical changes and devices: None. Lungs and pleura: Lungs are clear. No pleural effusions or pneumothorax. Mediastinum: Mediastinal contours appear normal. Heart size is normal. Bones and chest wall: No suspicious bony lesions. Overlying soft tissues appear unremarkable. IMPRESSION: No acute cardiopulmonary abnormality is seen. Dictated by: Keysha Vargas M.D. on 12/06/2024 at 20:00 Approved by: Keysha Vargas M.D. on 12/06/2024 at 20:00
--- NOTE | 2024-12-06 19:07 | PC.NURSE ---
Per MD Briscoe: pt does not need arenas--nubia stated bobby/elizabeth is okay due to pt ability to be mobile
--- NOTE | 2024-12-06 19:14 | P.HP_ITS ---
History of Present Illness History of Present Illness Date Patient Seen: 12/06/24 Time Patient Seen: 19:15 Date of Onset of Symptoms: 12/06/24 Chief complaint: Fall, no blood thinners, lt leg px Narrative: This is a pleasant 79-year-old female with some mild memory issues who was at home when she tripped over a step and landed on her right hip. She did land on a carpeted floor. She denies chest pain or dizziness or other symptoms prior to the fall. She has not had prior problems with hip pain. She initially was able to put some weight on the right hip but then noted progressive worsening pain and could not ambulate. She was brought to the emergency room by her . She notes ongoing right hip pain. She denies low back pain. She does not have any numbness or tingling. [facility] Medical History (Updated 12/06/24 @ 19:21 by Radha Briscoe MD) Ruptured tympanic membrane (2013) Nonsustained supraventricular tachycardia Surgical History History of hysterectomy for malignancy (2006) Social History marital status: number of children: 2 household members: spouse lives independently: Yes caregiver/support person: No housing: house occupational status: previously employed Smoking Status: Former smoker second hand exposure: No alcohol intake: current substance use type: does not use Meds Home Medications and Allergies Home Medications Medication Instructions Recorded Confirmed Type ascorbic acid (vitamin C) 500 mg 1 tab PO QPM ##0 07/06/17 03/26/24 History tablet calcium citrate 1 tab PO QPM ##0 07/06/17 03/26/24 History cholecalciferol (vitamin D3) 25 1 tab PO QPM ##0 07/06/17 03/26/24 History mcg (1,000 unit) tablet (Vitamin D3) magnesium 200 mg tablet 1 tab PO QPM ##0 07/06/17 03/26/24 History multivitamin (Multiple Vitamins 1 tab PO QPM ##0 07/06/17 03/26/24 History tablet) vitamin A 3,000 mcg (10,000 unit) 1 cap PO QPM ##0 10/06/17 06/26/24 History capsule aspirin 81 mg tablet,delayed 81 mg PO DAILY 09/17/18 03/26/24 History release (Adult Aspirin Regimen) simvastatin 20 mg tablet 20 mg PO BEDTIME #90 tabs 06/08/21 03/26/24 Rx metoprolol tartrate 50 mg tablet See Rx Instructions .Route 09/12/21 03/26/24 Rx .COMPLEX #135 tabs propranolol 10 mg tablet See Rx Instructions .Route 01/26/22 03/26/24 Rx .COMPLEX #30 tabs meloxicam 7.5 mg tablet 7.5 mg PO DAILY #30 tabs 07/01/24 Rx Allergies Allergy/AdvReac Type Severity Reaction Status Date / Time codeine Allergy UNKNOWN Verified 12/06/24 16:11 Review of Systems Review of Systems Narrative: No history of chest pain. No dizziness or lightheadedness prior to the [place] fall she has been feeling reasonably well recently. Exam Vital Signs (past 8 hours): - 12/06/24 16:11 Temperature 97.6 F Pulse Rate 81 Respiratory Rate 17 Blood Pressure 132/60 Pulse Oximetry 97 Oxygen Delivery Method Room Air Oxygen Delivery Method Room Air Narrative Exam Narrative: She is alert and a little hard of hearing and does confirm the answer to most questions with her 's help, HEENT is atraumatic cor regular rate and rhythm, lungs clear, abdomen soft and benign, right lower extremity pain with any attempted range of motion of the right hip, pelvis is stable, skin is intact, she is able to fire toe flexors and extensors bilaterally, no numbness in bilateral lower extremities, calves are soft bilaterally Objective Labs Labs: X-rays show a right femoral neck fracture base C cervical with some impaction, CT scan confirms right femoral neck fracture Assessment & Plan Assessment and plan (1) Essential hypertension, benign: Status: Chronic (2) Fracture of femoral neck, right, closed: Status: Acute Plan She has a right femoral neck fracture which is impacted. She was quite painful with attempted range of motion. I have recommended a right cemented unipolar. The plan is for a partial hip replacement tomorrow at 9:00 a.m.. The procedure options risks benefits and complications were discussed in detail. Her was at bedside. She understands and agrees and we discussed the procedure. She does have some mild memory issues. She did sign her consent and her was present during the signing of the consent. The risks including but not limited to instability, chronic pain, fracture, infection and possible anesthetic complications were discussed in detail. She consents to surgery. Time-Based Coding :: [TOTAL MINUTES] spent with patient and on the chart (including review of chart, obtaining history, exam, reviewing outside data, placing orders, documenting exam and treatment plan, and counseling patient) on [DATE].
[2024-12-06 20:01] LABS: Add Manual Diff / Slide Review NO; Basophils Absolute Auto 100 /uL (0-100); Basophils Percent Auto 0.7 % (0-2); Eosinophils Absolute Auto 100 /uL (0-450); Eosinophils Percent Auto 0.6 % (2-4); Lymphocytes Absolute Auto 1000 /uL (1100-4500); Lymphocytes Percent Auto 9.8 % (25-40); Mean Corpuscular HGB Conc 34.2 % (30-36); Mean Corpuscular Hemoglobin 30.1 PG (26-34); Mean Corpuscular Volume 87.9 fL (80-100); Monocytes Absolute Auto 600 /uL (0-900); Monocytes Percent Auto 5.6 % (3-14); Neutrophils Absolute Auto 8600 /uL (1500-7000); Neutrophils Percent Auto 83.3 % (50-75); Platelet Count 193 X10^3/uL (150-400); Red Blood Cell Count 4.33 X10^6/uL (4.0-5.2); Red Cell Distribution Width 13.4 % (11.6-14.8); White Blood Cell Count 10.3 X10^3/uL (4.5-11.0)
[2024-12-06 20:09] LABS: Prothrombin Time 11.6 SECONDS (9.4-12.5)
[2024-12-06 20:12] LABS: PTT Partial Thromboplastin Tim 27 SECONDS (25.1-36.5)
[2024-12-06 20:13] LABS: Alanine Aminotransferase 28 IU/L (<35); Albumin 3.9 g/dL (3.5-5.0); Albumin Globulin Ratio 1.4 (1.0-2.8); Alkaline Phosphatase 47 U/L (38-126); Aspartate Aminotransferase 32 IU/L (14-36); BUN Creatinine Ratio 39.2 (6-22); Bilirubin Total 0.5 mg/dL (0.2-1.3); Blood Urea Nitrogen 31 mg/dL (7-17); Calcium 8.8 mg/dL (8.4-10.2); Carbon Dioxide 28 mmol/L (22-32); Chloride 104 mmol/L (98-107); Estimated Glomerular Filt Rate > 60 mL/min (>60); Globulin 2.8 g/dL (1.7-4.1); Glucose 101 mg/dL (80-110); HEMOLYSIS 18 (0-50); Sodium 139 mmol/L (137-145); Total Protein 6.7 g/dL (6.3-8.2)
--- NOTE | 2024-12-06 20:31 | EKG_ITS ---
[address] [address] Test Date: 2024-12-06 Pat Name: Cherry Mcmahon Department: [facility] Room: Gender: Female Academic Tutor: LUZMARIA : 1945 Requested By: Order Number: [id number] Reading MD: Ralph Wang Measurements Intervals Alexis Rate: 81 P: 57 VA: 194 QRS: 4 QRSD: 80 T: 25 QT: 366 QTc: 425 Interpretive Statements Normal sinus rhythm Electronically Signed On 12-08-2024 8:44:43 PDT by Ralph Wang
[2024-12-06 20:45] LABS: Bacteria Urine None Seen; RBC Urine None Seen (0-5/HPF); Squamous Epithelial Cell Urine None Seen (0-5/HPF); Urine Volume 10mL (spun); WBC Urine 0-1/HPF (0-5/HPF)
[2024-12-06 20:46] LABS: Amorphous Sediment Urine 1+; Culture Indicated Urine Cult Not Indicated
--- NOTE | 2024-12-06 20:51 | PC.NURSE ---
Pt squirming around in bed. Redirecting, pt asking repeatedly where her is at this time. Pt needs frequent prompting to lay back in bed. Side rails up on gurney.
[2024-12-06] MEDS: OXYCODONE IR 5 MG TABLET PO (22:18)
[2024-12-06] MEDS: ATORVASTATIN 20 MG TABLET 10 MG PO (22:19)
[2024-12-06] MEDS: LORazepam 2 MG/ML INJ 0.5 MG IV (22:19)
[2024-12-06] MEDS: METOPROLOL IR 50 MG TABLET 75 MG PO (22:19)
[2024-12-07] VITALS (25 sets, daily range): BP systolic 87–145; BP diastolic 40–62; PULSE 11–84; RESP 11–24; TEMP 36–36.9; O2SAT 90–98; BMI 25.8
--- NOTE | 2024-12-07 | DI.RAD.S_ITS ---
PROCEDURE: XR PELVIS 1-2V INDICATIONS: INTER OP TECHNIQUE: Intra-operative view of the pelvis and hip acquired. COMPARISON: [facility], CR, XR PELVIS 1-2V, 12/06/2024, 19:08. FINDINGS: Bones: Right JOSE hardware is in expected location. The femoral head component is in normal alignment with the acetabulum. Soft tissues: Overlying surgical tools are present, along with other intraoperative changes. IMPRESSION: Anatomic alignment of JOSE hardware. Dictated by: Etta Davies M.D. on 12/07/2024 at 9:51 Approved by: Etta Davies M.D. on 12/07/2024 at 9:52
--- NOTE | 2024-12-07 | DI.RAD.S_ITS ---
PROCEDURE: XR HIP W PEL IF DONE RT 2V INDICATIONS: POST OP TECHNIQUE: AP pelvis and lateral view of the hip acquired. COMPARISON: [facility], CR, XR HIP W PEL IF DONE LT 2V, 04/04/2024, 11:11. FINDINGS: Bones: Patient is status post right hip arthroplasty, with hardware components in expected positions. The hip joint appears congruent. The visualized bony structures appear intact. Soft tissues: Overlying postoperative changes are noted. No suspicious soft tissue densities. IMPRESSION: Expected post-operative appearance of a hip arthroplasty. Dictated by: Etta Davies M.D. on 12/07/2024 at 11:15 Approved by: Etta Davies M.D. on 12/07/2024 at 11:16
[2024-12-07] MEDS: OXYCODONE IR 5 MG TABLET PO ×2 (04:18→19:54)
[2024-12-07] MEDS: LORazepam 2 MG/ML INJ 0.5 MG IV ×2 (04:50→22:08)
--- NOTE | 2024-12-07 05:12 | PC.NURSE ---
report programmer note pt arrived from ER via stretcher, oriented only to self, requires frequent reorientation, restless/anxious/aggitated, repeatedly trying to get out of bed, bed alarm on, call kelly within reach, prn analgesics given for pain in R hip, notified about pt's confusion/aggitation, orders given for prn ativan, pt calmed down and rested quietly in bed
[2024-12-07] MEDS: LACTATED RINGERS 1,000 ML 42 ML IV ×2 (08:43→11:51)
--- NOTE | 2024-12-07 08:44 | SUR.HOLD ---
Patient slightly confused; knows her name and ; she is aware that she had an injury and is in the hospital. When asked where her injury is, she states, the left; however, the injury is to the right hip. , Arvind, states that she is sometimes confused at times at home. accompanies to Pre-op area to answer questions.
--- NOTE | 2024-12-07 09:01 | PM.HP.IH.1 ---
History of Present Illness History of Present Illness Date Patient Seen: 12/07/24 Time Patient Seen: 08:50 Chief complaint: Fall, no blood thinners, lt leg px Narrative: Pt is an 79yo woman with HTN, hyperlipidemia, dementia who presented after ground level fall at home. History was limited due to the pts dementia. As per her , he had gone out the car and was waiting for her. She took longer than expected, and when he came back inside she was laying on the ground by a single step up from their kitchen into their living room. The pt recalls trying to oropeza to get outside, and potentially tripping. The pt had right leg and hip pain, but was able to ambulate with minimal assistance initially. The pain then progressively worsened and she came to the ED for evaluation. The pts denies any associated urinary incontinence or biting of the tongue with the fall. The pt does not recall any associated chest pain, SOB, palpitations - but also doesn't really recall falling. [facility] Medical History (Updated 12/06/24 @ 19:38 by Igor Spicer MD) Ruptured tympanic membrane (2013) Nonsustained supraventricular tachycardia Surgical History History of hysterectomy for malignancy (2006) Social History marital status: number of children: 2 household members: spouse lives independently: Yes caregiver/support person: No housing: house occupational status: previously employed Smoking Status: Former smoker second hand exposure: No alcohol intake: current substance use type: does not use Meds Home Medications and Allergies Home Medications Medication Instructions Recorded Confirmed Type ascorbic acid (vitamin C) 500 mg 1 tab PO QPM ##0 07/06/17 12/07/24 History tablet calcium citrate 1 tab PO QPM ##0 07/06/17 12/07/24 History cholecalciferol (vitamin D3) 25 1 tab PO QPM ##0 07/06/17 12/07/24 History mcg (1,000 unit) tablet (Vitamin D3) magnesium 200 mg tablet 1 tab PO QPM ##0 07/06/17 12/07/24 History multivitamin (Multiple Vitamins 1 tab PO QPM ##0 07/06/17 12/07/24 History tablet) vitamin A 3,000 mcg (10,000 unit) 1 cap PO QPM ##0 07/06/17 12/07/24 History capsule aspirin 81 mg tablet,delayed 81 mg PO DAILY 09/17/18 12/07/24 History release (Adult Aspirin Regimen) simvastatin 20 mg tablet 20 mg PO BEDTIME #90 tabs 06/08/21 12/07/24 Rx metoprolol tartrate 50 mg tablet 75 mg PO QPM 12/07/24 12/07/24 History propranolol 10 mg tablet 10 mg PO TID PRN Anxiety 12/07/24 12/07/24 History Allergies Allergy/AdvReac Type Severity Reaction Status Date / Time codeine Allergy UNKNOWN Verified 12/06/24 16:11 Exam Vital Signs (past 8 hours): - 12/07/24 04:00 12/07/24 08:46 Temperature 98.4 F 97.7 F Pulse Rate 61 69 Respiratory Rate 24 16 Blood Pressure 145/46 H 127/56 L Pulse Oximetry 94 94 Oxygen Flow Rate 0 Oxygen Delivery Method Room Air Oxygen Flow Rate 0 Narrative Exam Narrative: Gen: NAD, laying in bed, appears well, speaking easily, pleasantly confused Neck: no LAD CV: RRR, no murmurs Resp: clear to auscultation bilaterally, no wheezes or crackles Abd: soft, nontender, nondistended Ext: trace edema Neuro: alert, oriented only to person, no focal deficits Objective Labs 12/06/24 19:50 12/06/24 19:50 Labs: Laboratory Results - last 24 hr 12/06/24 12/06/24 19:50 20:15 WBC 10.3 RBC 4.33 Hgb 13.0 Hct 38.0 MCV 87.9 MCH 30.1 MCHC 34.2 RDW 13.4 Plt Count 193 Neut % (Auto) 83.3 H Lymph % (Auto) 9.8 L [place] % (Auto) 5.6 Eos % (Auto) 0.6 L Baso % (Auto) 0.7 Neut # (Auto) 8600 H Lymph # (Auto) 1000 L [place] # (Auto) 600 Eos # (Auto) 100 Baso # (Auto) 100 PT 11.6 INR 1.0 APTT 27 Sodium 139 Potassium 4.0 Chloride 104 Carbon Dioxide 28 BUN 31 H Creatinine 0.79 Estimated GFR > 60 BUN/Creatinine Ratio 39.2 H Glucose 101 Calcium 8.8 Total Bilirubin 0.5 AST 32 ALT 28 Alkaline Phosphatase 47 Total Protein 6.7 Albumin 3.9 Globulin 2.8 Albumin/Globulin Ratio 1.4 Urine RBC None seen Urine WBC 0-1/hpf Ur Squamous Epith Cells None seen Amorphous Sediment 1+ Urine Bacteria None seen Ur Culture Indicated? Cult not indicated Vol Urine Centrifuged 10ml (spun) Assessment & Plan Assessment & Plan narrative: Pt is an 79yo woman with HTN, hyperlipidemia, dementia who presented after ground level fall at home. Found to have right femoral neck fracture. 1) Femoral neck fracture: - Ortho consulted, appreciate ongoing care - Plan for surgical management this morning 2) Hypertension: BP in good range - Continue home Metoprolol, statin. Pts does report that she hasn't been taking either of these for a long time, however at last appt 03/2024 she was on them. - Monitor BPs closely 3) Dementia: Relatively acute onset less than a year ago. Did not follow-through with recommended work-up at that time. - Continue outpatient management, still recommend brain MRI, Neurology appt FEN: NPO for surgery, then general diet Code: Full DVT ppx: SCDs prior to surgery Dispo: Pending PT evaluation after surgery, likely need for rehab facility. Time-Based Coding :: [TOTAL MINUTES] spent with patient and on the chart (including review of chart, obtaining history, exam, reviewing outside data, placing orders, documenting exam and treatment plan, and counseling patient) on [DATE]. Quality VTE Deep Vein Thrombosis/Pulmonary Embolism Present on Admission: No [facility] [employer] Utility Assembler Document charge(s): Yes Charge Codes Initial inpatient/observation care: 21707
[2024-12-07] MEDS: FAMOTIDINE 20 MG/2 ML VIAL IV (09:02)
--- NOTE | 2024-12-07 09:05 | P.OP_ITS ---
Operative Date/Time/Diagnoses Date of procedure: 12/07/24 Time of procedure: 09:10 Pre-op diagnosis: right femoral neck fracture Post-op diagnosis: same Procedure & Clinicians Procedure: Right hip cemented unipolar Same procedure as scheduled: Yes Indications: The patient fell and suffered a right femoral neck fracture. She initially got up but then had severe pain and was brought to the emergency room for evaluation. The risks, benefits and alternatives to surgery were discussed with the patient prior to proceeding. Risks discussed included, but were not limited to, failure to relieve pain, leg length discrepancy, dislocation, stiffness, infection, nerve damage, deep venous thrombosis, pulmonary embolism, stroke, coma, heart attack, permanent paralysis and , as well as the potential need for eventual revision of the prosthetic. Surgeon: Radha Briscoe Scoop Filler: Susana Simons Anesthesia Type: Spinal Operative Notes Findings: Displaced right femoral neck fracture, acceptable bone, acceptable stability Closure Type: primary Specimen(s): none sent Prosthetic devices, grafts, tissues, transplants, or devices: Briscoe and nephew Synergy cemented size 13 synergy, +0, 48 mm femoral head, standard offset, 12 mm distal cement restrictor small bone plug Estimated Blood Loss (mL): 250 Blood products transfused: none Procedure in detail: The patient was seen in the pre-operative area, where the patient identified the right hip as the operative site and this was marked with my initials. The patient received pre-operative antibiotics and was taken to the operating room and placed on the operative table in the supine position after satisfactory anesthesia. A multimedia instructional designer out was performed. Patient was placed in the lateral decubitus position and all bony prominences were carefully padded and the arms were appropriately position. The right lower extremity was prepared from the ankle to the iliac crest with ChloroPrep in the usual fashion and draped through sterile drapes. The hip was approached through posterolateral approach. Dissection was carried out down through skin and subcutaneous tissues. The fascia was opened. Gelpi retractors were placed. A Charnley retractor was placed. A small amount of inflamed bursa was resected. The piriformis was identified and protected. The other short external rotators and capsule were carefully stripped from the posterior aspect of the femur. They were tagged and carefully retracted. The femoral neck was brought up and an osteotomy was made of the residual femoral neck approximately 1 fingerbreadth above the lesser trochanter. The head was removed without difficulty. It was carefully sized. The acetabulum was meticulously irrigated with normal saline. There were [mild] changes in the acetabulum. The acetabulum was carefully protected with an E tape. The canal was opened with a box cutting osteotome, followed by a T-handled reamer and a lateralizing reamer. The tapered reamers were then used, followed by sequential broaching. A trial head and neck were then placed and the hip relocated and checked for leg length and stability. The patient was stable in the position of sleep, of squatting, and could be put through a range of motion with 45 degrees internal rotation without dislocation. At 90 degrees flexion, internal rotation to 70? was possible before dislocation. This was felt to be satisfactory and the appropriate components were opened, and the trials were removed. The femoral canal was sized and a distal cement restrictor was placed. The bone was meticulously cleaned with pulse lavage. The canal was packed with vaginal packing with epinephrine. Antibiotics cement was mixed and carefully pressurized into the femoral canal. The femoral component was placed without difficulty. A repeat trial reduction showed good range of motion and stability. We did a brief Betadine soak after the cement had hardened. Patient had good range of motion and stability. The final head and neck were placed after carefully irrigating the wound. The capsulomuscular flap was then repaired to the greater trochanter though an awl hole using the tag sutures. The short external rotators were repaired with nonabsorbable stitches. The fascia mazin was closed with interrupted Vicryl. The subcutaneous layer was closed with interrupted 3-0 Vicryl, and the skin with a running 3-0 V-Lock suture and surgical glue. An Aquacel Ag dressing was applied and the patient was taken to recovery having tolerated the procedure well. Complications: none Post-operative Condition: stable Disposition: Acute Care Plan for aftercare: The patient will be maintained on a standard total hip replacement protocol with weight bearing as tolerated and posterior hip precautions. The patient will receive Aspirin and sequential compression devices for DVT prophylaxis. The patient will be discharged home when safe for the home environment.
--- NOTE | 2024-12-07 09:05 | PM.PREOP ---
Pre-operative Note Interval Note History & Physical reviewed/Exam performed by Physician: Yes Changes to H&P: No
[2024-12-07] MEDS: CEFAZOLIN 2 GM/100 ML PREMIX 100 ML IV ×2 (09:10→17:05)
--- NOTE | 2024-12-07 09:59 | SUR.OPER ---
Lateral, head on pillow, gel axillary roll in place, bottom leg bent with gel pad under knee to foot, upper leg straight and supported on field. Upper arm supported by pillows and secured over bottom arm to padded arm board.
[2024-12-07] MEDS: BUPIVACAINE 0.25% W/ EPI 30 ML VIAL 60 ML INJ (10:29)
[2024-12-07] MEDS: BUPIVACAINE LIPOSOME 266 MG/20 ML VIAL INJ (10:31)
[2024-12-07] MEDS: EPINEPHrine 1 MG/ML SUBCUT (10:34)
[2024-12-07] MEDS: TRANEXAMIC ACID 1,000 MG in SODIUM CHLORIDE 0.9% 100 ML 200 MG IV (11:09)
--- NOTE | 2024-12-07 11:28 | CM.DANOTE ---
Addendum entered by STIVEN Willingham 12/07/24 13:57: ADD: Met with Ortho who states surgery went well but pt with more cognitive impairment than likely family realizes and pt will be able to bear weight and Ortho hopeful pt will do well with PT/OT in the AM for d/c to home with very supportive spouse and family. Pt back up to floor but no family in room. SW to follow closely in AM for PT/OT eval to determine home with HH vs SNF and to confirm her insurance to determine if [employer] auth needed. BF Original Note: Patient is an 79 yo female who was admitted INPT Status on 12/06/24 for GLF with hip fx. Pt has [employer] MCR for insurance and her PCP is Dr. Gerri Barkley. EMR was reviewed. Per MD, pt with hx of Dementia and had GLF with right femoral neck fx and Ortho to Consult. Per Ortho MD, plan is surgery this morning and consents signed by patient and spouse present and agreeable. Pt currently off the floor in surgery and will need PT/OT eval post surg to determine discharge planning needs, anticipate likely SNF before return home with spouse. Per PCP note, pt had SLUMS cog assess in March 2024 and scored 8/30 at that time. PASRR done in anticipation of likely SNF. If pt remains on Ativan (not a home med) at d/c then PASRR will need to be adjusted accordingly with MD signature for anxiety. Plan: SW to follow for bedside assessment once pt returns to the floor from surgery and PT/OT eval to determine discharge planning needs. STIVEN Willingham Discharge Planning/Care Management CM Discharge Assessment Start: 12/07/24 11:15 Freq: Status: Active Protocol: Document 12/07/24 11:21 BF (Rec: 12/07/24 11:27 [id number]) Discharge Planning Assessment Assigned Nurses' Registry Director STIVEN Caro DPOA/Assigned Designee Name spouse Arvind Contact Information [phone] Advance Directives? No Advance Directives on File No History Provided By Patient,Family Member,Medical Record Has Patient been admitted in last 30 No days? Prior Living Arrangements House Household Members spouse Type of transporation used prior to Relies on Others admit Independent with ADL's No Is patient alert and oriented? No: dementia + Needs Assistance With Meal Prep,Managing Medications ,Home Chores / Shopping Caregiver for Another No Patient/Family Preference U[facility] Facility Barriers to Discharge No Discharge Plan U[facility] Facility Transportation Arrangement Likely facility van if SNF pending PT eval Additional Comment Pt currently in surgery and off the floor, will need PT/OT eval post surg Whiteboard Updated in Patient Room with Yes name and ext. # of Nurses' Registry Director Review Status In Process Please Provide Date Initial DC 12/07/24 Assessment Was Performed Next Review Type Continued Stay Review
[2024-12-07] MEDS: LACTATED RINGERS 1,000 ML 120 ML IV (12:03)
[2024-12-07] MEDS: LACTATED RINGERS 1,000 ML 100 ML IV ×2 (13:05→19:56)
[2024-12-07] MEDS: ACETAMINOPHEN 325 MG TABLET 650 MG PO (17:04)
[2024-12-07] MEDS: ATORVASTATIN 20 MG TABLET 10 MG PO (19:53)
[2024-12-07] MEDS: METOPROLOL IR 50 MG TABLET 75 MG PO (19:53)
[2024-12-07] MEDS: IBUPROFEN 400 MG TABLET PO (19:54)
[2024-12-07] MEDS: DOCUSATE 100 MG CAPSULE PO (20:06)
[2024-12-07] MEDS: ASPIRIN EC 81 MG TABLET PO (20:06)
[2024-12-08] VITALS: PULSE 67; RESP 16; TEMP 36.2; O2SAT 100
[2024-12-08] MEDS: CEFAZOLIN 2 GM/100 ML PREMIX 100 ML IV (01:03)
[2024-12-08 04:00] VITALS: BP 135/50; PULSE 64; RESP 16; TEMP 36.6; O2SAT 96
[2024-12-08] MEDS: ACETAMINOPHEN 325 MG TABLET 650 MG PO ×2 (04:07→16:17)
[2024-12-08] MEDS: OXYCODONE IR 5 MG TABLET PO ×3 (04:14→14:03)
[2024-12-08] MEDS: LORazepam 2 MG/ML INJ 0.5 MG IV ×2 (04:15→14:03)
[2024-12-08 04:35] VITALS: PULSE 65; RESP 14
[2024-12-08 05:07] LABS: Hematocrit 34.9 % (36-46); Hemoglobin 11.9 g/dL (12.0-16.0)
--- NOTE | 2024-12-08 06:40 | PC.NURSE ---
shift nurse manager note pt confused, oriented only to self, frequently attempting to get out of bed, bed alarm on, call kelly within reach, does not follow instructions well, constant cueing to get pt up safely with gait belt and walker to use bedside commode, voiding mod amts of foul smelling clear yellow urine, c/o pain in R hip, prn analgesics given with mod effect, pt became more restless and pulling at lines/dsg/attempting to hit staff, prn ativan given with effect, care continued
--- NOTE | 2024-12-08 07:57 | PM.PNPO.1 ---
Subjective Subjective Interval history: Cherry Mcmahon is an 79 year old female who is POD#1 s/p right cemented unipolar hip for a right femoral neck fracture by Dr. Briscoe. This afternoon patient reports that she is doing well overall, she states her pain is okay at rest but is severe w/ movement. Despite the pain she has been able to work w/ PT and ambulate some around her room, she is able to use bedside commode. Denies any weakness, numbness or tingling of the right lower extremity. She states she has new questions or concerns for me today. Exam Vital Signs (past 8 hours): - 12/08/24 00:00 12/08/24 04:00 12/08/24 04:35 Temperature 97.1 F L 97.9 F Pulse Rate 67 64 65 Respiratory Rate 16 16 14 Blood Pressure 135/50 L Pulse Oximetry 100 96 Oxygen Flow Rate 4 4 Fraction of Inspired Oxygen 36 SaO2/FiO2 Ratio 261 Oxygen Delivery Method Nasal Cannula Oxygen Flow Rate 4 Narrative Exam Narrative: Patient lying comfortably in bed during our interview today. No acute distress. Grossly normal alignment of the RLE. 5/5 strength with DF, PF, EHL bilaterally. Gross sensation intact throughout bilateral lower extremities. Calves soft and non-tender bilaterally. SCDs are on and functioning. Brisk capillary refill, pulses intact. Post-surgical Aquacel dressing clean, dry and intact over the right posterior hip with scant drainage. Objective Labs 12/08/24 04:38 12/06/24 19:50 Labs: Laboratory Results - last 24 hr 12/08/24 04:38 Hgb 11.9 L Hct 34.9 L PFSH Medical History (Updated 12/06/24 @ 19:38 by Igor Spicer MD) Ruptured tympanic membrane (2013) Nonsustained supraventricular tachycardia Surgical History History of hysterectomy for malignancy (2006) Social History marital status: number of children: 2 household members: spouse lives independently: Yes caregiver/support person: No housing: house occupational status: previously employed Smoking Status: Former smoker second hand exposure: No alcohol intake: current substance use type: does not use Assessment & Plan Post-op Postoperative Procedures: Procedures Operation Date: 12/07/24 09:00 Actual Procedure Side Surgeon p Hip Hemiarthroplasty [place] Right Radha Todd Briscoe MD Postoperative plan narrative: 1) Discharge disposition per Medicine. 2) Continue multimodal pain management with ice to the hip for additional pain control. 3) ASA b.i.d. for DVT prophylaxis. SCDs to be worn while in bed. 4) Work with physical therapy to improve mobility. WBAT, maintain posterior hip precautions for 6 weeks. 5) Keep dressing intact, clean, dry until 2 week postop appointment. No soaking the incision site in pools or tubs. No topical ointments or creams to the incision site. 6) Follow up at [facility] in 2 weeks for a postop appointment and wound check. All patient's questions were answered, she demonstrates understanding and is in agreement with the plan. Call our office if any questions or concerns arise. Quality VTE Deep Vein Thrombosis/Pulmonary Embolism Present on Admission: No
--- NOTE | 2024-12-08 07:59 | PM.DS.1 ---
History of Present Illness History of Present Illness Chief complaint: Fall, no blood thinners, lt leg px Discharge Providers Provider Date of admission: 12/06/24 20:52 Discharge Date: 12/10/24 Primary care physician: Gerri Barkley MD Consults: 12/07/24 12:48 Consult to Discharge Planning Routine Comment: Consult to Occupational Therapy Evaluate & Treat Comment: Physician Instructions: Evaluate and treat Consult to Physical Therapy Evaluate & Treat Comment: Physician Instructions: post op JOSE protocol 12/07/24 16:50 Consult to Physician Routine Comment: Consulting Provider: Radha Briscoe Reason for consultation: right hip fx Has provider been notified: Yes Discharge provider: Susana Simons PA-C Exam Vital Signs (past 8 hours): - 12/08/24 00:00 12/08/24 04:00 12/08/24 04:35 Temperature 97.1 F L 97.9 F Pulse Rate 67 64 65 Respiratory Rate 16 16 14 Blood Pressure 135/50 L Pulse Oximetry 100 96 Oxygen Flow Rate 4 4 Fraction of Inspired Oxygen 36 SaO2/FiO2 Ratio 261 Oxygen Delivery Method Nasal Cannula Oxygen Flow Rate 4 Objective Labs 12/08/24 04:38 12/06/24 19:50 Labs: Laboratory Results - last 24 hr 12/08/24 04:38 Hgb 11.9 L Hct 34.9 L PFSH Medical History (Updated 12/06/24 @ 19:38 by Igor Spicer MD) Ruptured tympanic membrane (2013) Nonsustained supraventricular tachycardia Surgical History History of hysterectomy for malignancy (2006) Social History marital status: number of children: 2 household members: spouse lives independently: Yes caregiver/support person: No housing: house occupational status: previously employed second hand exposure: No alcohol intake: current substance use type: does not use Discharge Plan Discharge Plan Patient Disposition: Home Health Service Discharge orders & Medications Prescriptions: New acetaminophen 325 mg Tablet 650 mg PO Q6H PRN (Reason: Fever/Mild Pain (1-3)) Qty: 30 0RF ibuprofen 400 mg Tablet 400 mg PO Q4H PRN (Reason: Pain, Mild (1-3)) Qty: 60 0RF Continued multivitamin [Multiple Vitamins] 1 EACH tablet 1 tab PO QPM Qty: 0 magnesium 200 mg Tablet 1 tab PO QPM Qty: 0 vitamin A 3,000 mcg (10,000 unit) Capsule 1 cap PO QPM Qty: 0 ascorbic acid (vitamin C) 500 mg Tablet 1 tab PO QPM Qty: 0 calcium citrate 200 mg (950 mg) Tablet 1 tab PO QPM Qty: 0 cholecalciferol (vitamin D3) [Vitamin D3] 25 mcg (1,000 unit) Tablet 1 tab PO QPM Qty: 0 Changed aspirin [Adult Aspirin Regimen] 81 mg tablet,delayed release (DR/EC) 81 mg PO BID Qty: 60 0RF Discontinued propranolol 10 mg Tablet 10 mg PO TID MDD 30 mg PRN (Reason: Anxiety) Rx Instructions: Take 1 tablet by mouth three times daily as needed for anxiety. To be taken as needed prior to driving for anxiety. metoprolol tartrate 50 mg Tablet 75 mg PO QPM Rx Instructions: Take 1 and 1/2 tablet by mouth daily in the evening. No Action memantine 10 mg tablet 10 mg PO DAILY Qty: 30 2RF simvastatin 20 mg tablet 20 mg PO BEDTIME Qty: 90 3RF metoprolol tartrate 50 mg tablet 75 mg PO BEDTIME Qty: 45 2RF quetiapine 25 mg tablet 12.5 mg PO BEDTIME Qty: 30 0RF Follow up/Referrals: Gerri Barkley MD [Primary Care Provider, Family Practice] - 2 Weeks Diet/Activity/Treatments Diet: Regular Skin/Wound/Dressing Care Report to your healthcare provider any signs of infection, such as:: increased pain Visit Report/Discharge Packet Stand Alone Forms: Patient Portal/API, Stroke Signs & Symptoms Discharge Data Primary Care Provider: Gerri Barkley Quality VTE Deep Vein Thrombosis/Pulmonary Embolism Present on Admission: No
[2024-12-08 08:00] VITALS: BP 137/62; PULSE 93; RESP 20; TEMP 36.1; O2SAT 93
[2024-12-08] MEDS: ASPIRIN EC 81 MG TABLET PO ×2 (08:06→20:56)
[2024-12-08] MEDS: IBUPROFEN 400 MG TABLET PO ×3 (08:06→20:56)
[2024-12-08] MEDS: DOCUSATE 100 MG CAPSULE PO ×2 (08:07→20:56)
--- NOTE | 2024-12-08 10:48 | OT.IP.EVAL ---
Current Diagnoses Essential (primary) hypertension (12/06/24) Fracture of unspecified part of neck of right femur, initial encounter for closed fracture (12/06/24) Surgery Performed Operation Date: 12/07/24 09:00 Actual Procedures p Hip Hemiarthroplasty [place](Right) - Radha Briscoe MD Past Medical History (Last Reviewed 12/06/24 @ 19:16 by Radha Briscoe MD) Nonsustained supraventricular tachycardia Ruptured tympanic membrane (2013) Surgical History (Last Reviewed 12/06/24 @ 19:16 by Radha Briscoe MD) History of hysterectomy for malignancy (2006) Occupational Therapy Inpatient Evaluation/Re-Eval M1 PT/OT-IP Prior Functional Status Start: 12/08/24 10:49 Freq: NEEDED Status: Active Protocol: Document 12/08/24 10:50 CGR (Rec: 12/08/24 11:04 CGR [id number]) Medical Review Prior Functional Status Medical History Reviewed Yes Communication Pt is an effective verbal communicator but is severly impaired cognitively and only oriented to self. Mobility and Gait Per pt's brother, pt was IND without AD Activities of Daily Living and IADL's Per pt's brother, pt was IND without AD. It is likely that patient needs supervision and verbal cues to perform ADLS. Social History Household Members spouse Living Arrangements House Number of Floors (Floors) One Floor Number of Stairs To Enter/Railing? 1 step to enter from the garage and one step from kitchen to living room Home Environment High Toilet,Walk in Shower Employment Status Retired Additional Social History Comment Pt states she has a flat bed. Pt is oriented to self only and homeset up information obtained from patient and her brother present in the room when OT entered. M2 OT-IP Current Condition Start: 12/08/24 10:49 Freq: Status: Active Protocol: Document 12/08/24 10:50 CGR (Rec: 12/08/24 11:04 CGR [id number]) Occupational Therapy Current Condition Current Condition Evaluation Date 12/08/24 Treatment Diagnosis fall with R hip fx, posterior approach WBAT Diagnosis Onset Date 12/06/24 Post Operative Precautions Posterior Hip Precautions No Hip Flexion > 90 degrees,No Hip Internal Rotation,No Hip Adduction Weight Bearing Status Weight Bearing Status Weight Bear as Tolerated M3 OT- IP Subjective and Pain Start: 12/08/24 10:49 Freq: Status: Active Protocol: Document 12/08/24 10:50 CGR (Rec: 12/08/24 11:04 CGR [id number]) OT- Subjective Occupational Therapy Visit Type Type Initial Evaluation Visit Start Time 10:31 Visit Stop Time 10:48 Notes Partial co-treat with P.T. OT Pain Assessment Pain When Pain Assessed At Rest Pain Present Pain Present Denied Pain M4 OT- IP ADL's Start: 12/08/24 10:49 Freq: Status: Active Protocol: Document 12/08/24 10:50 CGR (Rec: 12/08/24 11:04 CGR [id number]) OT [id number] Comments OT Self-Feeding Comments not meal time OT ADL-Grooming General Evaluation Grooming Ability Standby Assistance Areas Needing Assistance Face Washing Comments OT Grooming Comments seated in chair OT ADL-Oral Care Comments Oral Care Comments not performed OT ADL-Dressing Comments OT Dressing Comments not performed OT ADL-Toileting Comments OT Toileting Comments not performed OT ADL-Bathing Comments OT Bathing Comments not performed M5 OT- IP IADL's Start: 12/08/24 10:49 Freq: Status: Active Protocol: Document 12/08/24 10:50 CGR (Rec: 12/08/24 11:04 CGR [id number]) OT-Instrumental Activities of Daily Living Deficits IADL Deficits Identified Deficits Home Safety Awareness Awareness of Need for Assistance at Home Decreased Awareness Ability to Problem Solve Emergency Unable to Problem Solve Situations Medication Management Medication Management Caregiver Administers Money Management Money Management Caregiver Provides Assistance Meal Preparation Meal Preparation Caregiver Provides Assist Interlacer Interlacer Caregiver Provides Assist M6 OT- IP Functional Cognition Start: 12/08/24 10:49 Freq: Status: Active Protocol: Document 12/08/24 10:50 CGR (Rec: 12/08/24 11:04 CGR [id number]) Cognitive Factors Limiting Selfcare Function Cognitive Ability Level of Alertness Alert Patient Orientation Name Attention Span Ability Capable of Focused Attention, Unable to Sustain Attention Ability to Follow Commands Able to Follow One Step Commands with Increased Time, Able to Follow One Step Commands with Repetition Cognitive Comments Cognitive Assessment Comments Pt had difficulty follow directions, needing verbal and physical cues to perform. Per chart, pt scored 8/30 on SLUMS in March of 2024. OT- Vision and Hearing OT- Hearing Assessment OT- Hearing Assessment WFL OT- Vision Assessment Visual Acuity WFL Visual Attentiveness WFL Occular Pursuits WFL M7 OT- IP Mobility and Balance Start: 12/08/24 10:49 Freq: Status: Active Protocol: Document 12/08/24 10:50 CGR (Rec: 12/08/24 11:04 CGR [id number]) OT- Bed Mobility Assessment Supine to Sit Supine to Sit Assist Moderate Assistance,Head of Bed Elevated Scooting Scooting to Edge of Bed Moderate Assistance,Head of Bed Elevated OT-Transfer Assessment Sit to and From Stand Sit to and from Stand Moderate Assistance,1 Person Assistance Transfers Transfer Ability Moderate Assistance,1 Person Assistance Technique Transfer Destination Bed,Chair Transfer Technique Stand Step Pivot Devices Transfer Assistive Devices Gait Belt,Front Wheeled Walker Comments Mobility Comments Pt needed max VC for all activities and physical cues at times. Pt needed mod a for all mobility and with poor balance. BP 117/48 and heart rate 70. OT- Gait Assessment Comments Gait Ability Comments not performed OT- Balance Assessment Sitting Balance and Reactions Static Sitting Balance Ability Fair Dynamic Sitting Balance Ability Poor Standing Balance and Reactions Static Standing Balance Ability Poor Dynamic Standing Balance Ability Poor M8 OT- IP Objective Assessments Start: 12/08/24 10:49 Freq: Status: Active Protocol: Document 12/08/24 10:50 CGR (Rec: 12/08/24 11:04 CGR [id number]) OT Gross Range of Motion Upper Extremity Range of Motion Assessment Within Functional Limits OT Strength Upper Extremity Strength Assessment Within Functional Limits Comments Strength Comments grossly 4/5 OT- Coordination Assessment Upper Extremity Finger to Nose Test Within Functional Limits Finger Tapping Test Within Functional Limits OT-Muscle Tone Assessment Muscle Tone WNL Yes OT Sensation Assessment Edema Edema Absent M9 OT- IP Assessment and Plan Start: 12/08/24 10:49 Freq: Status: Active Protocol: Document 12/08/24 10:50 CGR (Rec: 12/08/24 11:04 CGR [id number]) OT Summary Assessment and Plan Potential Rehabilitation Potential Fair Analytic Complexity at Evaluation Moderate Summary OT Impairments Pain,Balance,Functional Cognition,Functional Mobility, Grooming,Dressing,Toileting, Bathing,Toilet Transfers, Shower Transfers,Activity Tolerance Progress Towards Goals Progressing Toward Goals,Slow Progress due to Cognition Assessment Summary Pt presents as a moderate complexity evaluation s/p admit from all with hip fx. Pt is now s/p Posterior JOSE and WBAT. Pt participated well in todays session but is limited significantly by her cognition . Pt was oriented only to self . Pt transferred to chair and performed face washing. She does not know why she is here and states that she is at home . Pt was agreeable with activity and appears pleasantly confused and very participatory with therapy. Pt will benefit from SNF upon discharge. Goals Self-Feeding Goal Standby Assistance Grooming Goal Standby Assistance Dressing Goal Standby Assistance Toileting Goal Standby Assistance Bathing Goal Standby Assistance Toilet Transfer Goal Standby Assistance Shower Transfer Goal Standby Assistance Days to Meet Goals 15 Frequency of Treatment Other frequency 5x per week Treatment Plan OT Treatment Plan ADL Training,Functional Cognition Training,Functional Mobility,Patient/Family Education,Discharge Planning Other Treatment Recommendations and Next Up to bathroom if appropriate. Treatment Focus LB dressing Discharge Recommendations OT Discharge Recommendations SNF Rehab Transportation Needs at Discharge Wheelchair/Cabulance
--- NOTE | 2024-12-08 11:04 | PT.IIE ---
Current Diagnoses Essential (primary) hypertension (12/06/24) Fracture of unspecified part of neck of right femur, initial encounter for closed fracture (12/06/24) Surgery Performed Operation Date: 12/07/24 09:00 Actual Procedures p Hip Hemiarthroplasty [place](Right) - Radha Briscoe MD Surgical History (Last Reviewed 12/06/24 @ 19:16 by Radha Briscoe MD) History of hysterectomy for malignancy (2006) Medical History (Last Reviewed 12/06/24 @ 19:16 by Radha Briscoe MD) Nonsustained supraventricular tachycardia Ruptured tympanic membrane (2013) Physical Therapy Inpatient Evaluation/Re-Eval M1 PT/OT-IP Prior Functional Status Start: 12/08/24 10:49 Freq: NEEDED Status: Active Protocol: Document 12/08/24 10:50 CGR (Rec: 12/08/24 11:04 CGR [id number]) Medical Review Prior Functional Status Medical History Reviewed Yes Communication Pt is an effective verbal communicator but is severly impaired cognitively and only oriented to self. Mobility and Gait Per pt's brother, pt was IND without AD Activities of Daily Living and IADL's Per pt's brother, pt was IND without AD. It is likely that patient needs supervision and verbal cues to perform ADLS. Social History Household Members spouse Living Arrangements House Number of Floors (Floors) One Floor Number of Stairs To Enter/Railing? 1 step to enter from the garage and one step from kitchen to living room Home Environment High Toilet,Walk in Shower Employment Status Retired Additional Social History Comment Pt states she has a flat bed. Pt is oriented to self only and homeset up information obtained from patient and her brother present in the room when OT entered. M1 PT/OT-IP Prior Functional Status Start: 12/08/24 10:50 Freq: NEEDED Status: Active Protocol: Document 12/08/24 10:27 MB (Rec: 12/08/24 11:04 MB [id number]) Medical Review Prior Functional Status Medical History Reviewed Yes Communication Unsure baseline diet and communication, pt is hypoverbal during assessment and only oriented to first name Mobility and Gait Brother enters and states that pt holds onto her for gait at home and out of home, he is not aware how she fractured right hip at home Activities of Daily Living and IADL's assistance for all ADLs Social History Household Members spouse Living Arrangements House Number of Floors (Floors) One Floor Number of Stairs To Enter/Railing? 1 step from garage and 1 step from kitchen to living room without rail Home Environment High Toilet,Walk in Shower M2 PT-IP Current Condition Start: 12/08/24 10:50 Freq: NEEDED Status: Active Protocol: Document 12/08/24 10:27 MB (Rec: 12/08/24 11:04 MB [id number]) Physical Therapy Current Condition Current Condition Evaluation Date 12/08/24 Treatment Diagnosis Right hip fracture s/p right hip cemented unipolar M3 PT-IP Subjective Start: 12/08/24 10:50 Freq: NEEDED Status: Active Protocol: Document 12/08/24 10:27 MB (Rec: 12/08/24 11:04 MB [id number]) Subjective Physical Therapy Visit Type Type Initial Evaluation Visit Start Time 10:27 Visit Stop Time 10:49 Number of HOME APPLIANCES MECHANIC Visits 0 Physical Therapy Visit Comments Patient Comments Pt with unrelated comments during assessment Therapy Pain Assessment Pain When Pain Assessed At Rest Pain Present Pain Present Pain Reported Location Right leg Intensity 2 Scale Used Aram (Faces) M4 PT-IP Mobility and Gait Start: 12/08/24 10:50 Freq: NEEDED Status: Active Protocol: Document 12/08/24 10:27 MB (Rec: 12/08/24 11:04 MB [id number]) PT-Bed Mobility Assessment Supine to Sit Supine to Sit Moderate Assistance,Head of Bed Elevated Scooting Scooting to Edge of Bed Moderate Assistance PT-Transfer Assessment Sit to and From Stand Sit to and from Stand Moderate Assistance,1 Person Assistance,Use of Upper Extremities Equipment Transfer Assistive Device Gait Belt,Front Wheeled Walker Orthotic/Prosthetic Devices or Brace: No Transfers Transfer Destination Chair Transfer Technique Stepping Transfer Ability Level of Assist Moderate Assistance,1 Person Assistance,Use of Upper Extremities Comments Mobility Comments Pt weaves posteriorly and has posterior LOB with STS, stepping and standing to take BP. BP 117/48, 70 LUE in standing. Gait Assessment Gait Gait Assistance Required: Moderate Assistance Distance (Feet) 1 Able to Maintain Weight Bearing Status Yes During Gait Assistive Devices Assistive Device Gait Belt,Front Wheeled Walker Orthotic/Prosthetic Devices or Brace: No Gait Deviations General Gait Pattern Antalgic,Decreased Stride Length,Decreased Feet Clearance,Flexed Trunk,Step-to Gait,Wide Based Gait Factors Limiting Gait Function Factors Limiting Gait Function Decreased Activity Tolerance, Difficulty Following Directions,Incoordination, Limited Range of Motion,Pain, Poor Balance,Poor Safety Awareness PT-Balance Assessment Sitting Balance and Reactions Static Sitting Balance Ability Fair Dynamic Sitting Balance Ability Poor Standing Balance and Reactions Static Standing Balance Ability Poor Dynamic Standing Balance Ability Poor Device Used RW M5 PT-IP Objective Assessments Start: 12/08/24 10:50 Freq: NEEDED Status: Active Protocol: Document 12/08/24 10:27 MB (Rec: 12/08/24 11:04 [id number]) Orientation Orientation/Cognition Level of Alertness Confusional State Orientation Name Safety Awareness Decreased Safety Awareness Memory Description Short Term Impaired,Senior Care Impaired Gross Range of Motion Upper Extremity ROM Impairments Defer to OT Lower Extremity ROM Assessment Right Impaired Impairments Hip tends to rest in IR and pt has trouble following commands for positioning, ankle and knee also with reduced range this date Strength Lower Extremity Strength Assessment Right Impaired Comments Strength Comments Pt does not tolerate range or MMT right ankle, knee hip and does present with limitations Coordination Assessment Gross Coordination Gross Coordination Impaired Sensation Assessment Comments Sensation Comments Does not follow commands M6 PT-IP Treatment Start: 12/08/24 10:50 Freq: NEEDED Status: Active Protocol: Document 12/08/24 10:27 MB (Rec: 12/08/24 11:04 [id number]) Physical Therapy Treatment Education Education Provided Precautions,Weight Bearing Status,Post-Op Packet,Safety Other Treatments Other Treatment Performed Brother steps in briefly during assessment and PT ed him about posterior hip precautions and folder as pt does not understand and will not be able to follow, he will bring up to his DANIELLE, pt's M7 PT-IP Assessment and Plan Start: 12/08/24 10:50 Freq: NEEDED Status: Active Protocol: Document 12/08/24 10:27 MB (Rec: 12/08/24 11:04 [id number]) PT Summary Assessment and Plan Potential Rehabilitation Potential Poor Status of Condition at Evaluation Unstable Summary Impairments Pain,ROM,Strength,Balance, Coordination,Cognition,Bed Mobility,Transfers,Gait, Activity Tolerance Progress Towards Goals Slow Progress - Other Assessment Summary Pt is an 79 y/o female s/p fall and right hip fracture s/ p right hip cemented unipolar and with posterior hip precautions. Pt has 24 hour assistance from at home d/t her dementia and he is not around for evaluation and brother provides history and states that pt's uses a walker. Pt presents with confusion and has trouble following 1-step functional commands. She requires overall mod A today and weaves once standing and may benefit from having orthostatics assessed in next treatment. Pt is unaware she fell, fractured him and had surgery and she will likely be unable to remember and comply with posterior hip precautions. This gives her a higher risk for dislocation and falls. She will benefit from SNF at d/c. Pt is very confused by RW as well and requires cues for use and tactile assistance. AD training and compliance may also be challenging. Goals Bed Mobility Goal Standby Assistance Transfer Goal Standby Assistance,Front Wheeled Walker Gait Goal Standby Assistance,Front Wheel Walker Gait Distance 75 Other Goals Pt will ascend and descend 1 step with RW and no more than CGA to allow safe home entrance, if she is able to progress towards this goal. Frequency of Treatment Frequency Of Treatment Once a Day Treatment Plan Physical Therapy Treatment Plan Bed Mobility Training,Transfer Training,Gait Training, Therapeutic Exercise,Balance Retraining,Post Op Education, Discharge Planning,Hot or Cold Pack,Neuromuscular Re-ed, Coordination Retraining,Manual Therapy Other Recommendations and Next Treatment Consider checking orthostatics Focus next treatment date Precautions Posterior Hip Precautions No Hip Flexion > 90 degrees,No Hip Internal Rotation,No Hip Adduction Weight Bearing Status Weight Bearing Status Weight Bear as Tolerated Recommendations To Nursing Amount of Assist Needed 2 Person Assist Discharge Recommendations PT Discharge Recommendations SNF Rehab Transportation Needs at Discharge Wheelchair/Cabulance - PT assist x1
--- NOTE | 2024-12-08 11:04 | PT.IIE ---
Current Diagnoses Essential (primary) hypertension (12/06/24) Fracture of unspecified part of neck of right femur, initial encounter for closed fracture (12/06/24) Surgery Performed Operation Date: 12/07/24 09:00 Actual Procedures p Hip Hemiarthroplasty [place](Right) - Radha Briscoe MD Surgical History (Last Reviewed 12/06/24 @ 19:16 by Radha Briscoe MD) History of hysterectomy for malignancy (2006) Medical History (Last Reviewed 12/06/24 @ 19:16 by Radha Briscoe MD) Nonsustained supraventricular tachycardia Ruptured tympanic membrane (2013) Physical Therapy Inpatient Evaluation/Re-Eval M1 PT/OT-IP Prior Functional Status Start: 12/08/24 10:49 Freq: NEEDED Status: Active Protocol: Document 12/08/24 10:50 CGR (Rec: 12/08/24 11:04 CGR [id number]) Medical Review Prior Functional Status Medical History Reviewed Yes Communication Pt is an effective verbal communicator but is severly impaired cognitively and only oriented to self. Mobility and Gait Per pt's brother, pt was IND without AD Activities of Daily Living and IADL's Per pt's brother, pt was IND without AD. It is likely that patient needs supervision and verbal cues to perform ADLS. Social History Household Members spouse Living Arrangements House Number of Floors (Floors) One Floor Number of Stairs To Enter/Railing? 1 step to enter from the garage and one step from kitchen to living room Home Environment High Toilet,Walk in Shower Employment Status Retired Additional Social History Comment Pt states she has a flat bed. Pt is oriented to self only and homeset up information obtained from patient and her brother present in the room when OT entered. M1 PT/OT-IP Prior Functional Status Start: 12/08/24 10:50 Freq: NEEDED Status: Active Protocol: Document 12/08/24 10:27 MB (Rec: 12/08/24 11:04 MB [id number]) Medical Review Prior Functional Status Medical History Reviewed Yes Communication Unsure baseline diet and communication, pt is hypoverbal during assessment and only oriented to first name Mobility and Gait Brother enters and states that pt holds onto her for gait at home and out of home, he is not aware how she fractured right hip at home Activities of Daily Living and IADL's assistance for all ADLs Social History Household Members spouse Living Arrangements House Number of Floors (Floors) One Floor Number of Stairs To Enter/Railing? 1 step from garage and 1 step from kitchen to living room without rail Home Environment High Toilet,Walk in Shower M2 PT-IP Current Condition Start: 12/08/24 10:50 Freq: NEEDED Status: Active Protocol: Document 12/08/24 10:27 MB (Rec: 12/08/24 11:04 MB [id number]) Physical Therapy Current Condition Current Condition Evaluation Date 12/08/24 Treatment Diagnosis Right hip fracture s/p right hip cemented unipolar M3 PT-IP Subjective Start: 12/08/24 10:50 Freq: NEEDED Status: Active Protocol: Document 12/08/24 10:27 MB (Rec: 12/08/24 11:04 MB [id number]) Subjective Physical Therapy Visit Type Type Initial Evaluation Visit Start Time 10:27 Visit Stop Time 10:49 Number of WINE CELLAR STOCK CLERK Visits 0 Physical Therapy Visit Comments Patient Comments Pt with unrelated comments during assessment Therapy Pain Assessment Pain When Pain Assessed At Rest Pain Present Pain Present Pain Reported Location Right leg Intensity 2 Scale Used Aram (Faces) M4 PT-IP Mobility and Gait Start: 12/08/24 10:50 Freq: NEEDED Status: Active Protocol: Document 12/08/24 10:27 MB (Rec: 12/08/24 11:04 MB [id number]) PT-Bed Mobility Assessment Supine to Sit Supine to Sit Moderate Assistance,Head of Bed Elevated Scooting Scooting to Edge of Bed Moderate Assistance PT-Transfer Assessment Sit to and From Stand Sit to and from Stand Moderate Assistance,1 Person Assistance,Use of Upper Extremities Equipment Transfer Assistive Device Gait Belt,Front Wheeled Walker Orthotic/Prosthetic Devices or Brace: No Transfers Transfer Destination Chair Transfer Technique Stepping Transfer Ability Level of Assist Moderate Assistance,1 Person Assistance,Use of Upper Extremities Comments Mobility Comments Pt weaves posteriorly and has posterior LOB with STS, stepping and standing to take BP. BP 117/48, 70 LUE in standing. Gait Assessment Gait Gait Assistance Required: Moderate Assistance Distance (Feet) 1 Able to Maintain Weight Bearing Status Yes During Gait Assistive Devices Assistive Device Gait Belt,Front Wheeled Walker Orthotic/Prosthetic Devices or Brace: No Gait Deviations General Gait Pattern Antalgic,Decreased Stride Length,Decreased Feet Clearance,Flexed Trunk,Step-to Gait,Wide Based Gait Factors Limiting Gait Function Factors Limiting Gait Function Decreased Activity Tolerance, Difficulty Following Directions,Incoordination, Limited Range of Motion,Pain, Poor Balance,Poor Safety Awareness PT-Balance Assessment Sitting Balance and Reactions Static Sitting Balance Ability Fair Dynamic Sitting Balance Ability Poor Standing Balance and Reactions Static Standing Balance Ability Poor Dynamic Standing Balance Ability Poor Device Used RW M5 PT-IP Objective Assessments Start: 12/08/24 10:50 Freq: NEEDED Status: Active Protocol: Document 12/08/24 10:27 MB (Rec: 12/08/24 11:04 [id number]) Orientation Orientation/Cognition Level of Alertness Confusional State Orientation Name Safety Awareness Decreased Safety Awareness Memory Description Short Term Impaired,Intermediate Impaired Gross Range of Motion Upper Extremity ROM Impairments Defer to OT Lower Extremity ROM Assessment Right Impaired Impairments Hip tends to rest in IR and pt has trouble following commands for positioning, ankle and knee also with reduced range this date Strength Lower Extremity Strength Assessment Right Impaired Comments Strength Comments Pt does not tolerate range or MMT right ankle, knee hip and does present with limitations Coordination Assessment Gross Coordination Gross Coordination Impaired Sensation Assessment Comments Sensation Comments Does not follow commands M6 PT-IP Treatment Start: 12/08/24 10:50 Freq: NEEDED Status: Active Protocol: Document 12/08/24 10:27 MB (Rec: 12/08/24 11:04 [id number]) Physical Therapy Treatment Education Education Provided Precautions,Weight Bearing Status,Post-Op Packet,Safety Other Treatments Other Treatment Performed Brother steps in briefly during assessment and PT ed him about posterior hip precautions and folder as pt does not understand and will not be able to follow, he will bring up to his DANIELLE, pt's M7 PT-IP Assessment and Plan Start: 12/08/24 10:50 Freq: NEEDED Status: Active Protocol: Document 12/08/24 10:27 MB (Rec: 12/08/24 11:04 [id number]) PT Summary Assessment and Plan Potential Rehabilitation Potential Poor Status of Condition at Evaluation Unstable Summary Impairments Pain,ROM,Strength,Balance, Coordination,Cognition,Bed Mobility,Transfers,Gait, Activity Tolerance Progress Towards Goals Slow Progress - Other Assessment Summary Pt is an 79 y/o female s/p fall and right hip fracture s/ p right hip cemented unipolar and with posterior hip precautions. Pt has 24 hour assistance from at home d/t her dementia and he is not around for evaluation and brother provides history and states that pt's uses a walker. Pt presents with confusion and has trouble following 1-step functional commands. She requires overall mod A today and weaves once standing and may benefit from having orthostatics assessed in next treatment. Pt is unaware she fell, fractured him and had surgery and she will likely be unable to remember and comply with posterior hip precautions. This gives her a higher risk for dislocation and falls. She will benefit from SNF at d/c. Pt is very confused by RW as well and requires cues for use and tactile assistance. AD training and compliance may also be challenging. Goals Bed Mobility Goal Standby Assistance Transfer Goal Standby Assistance,Four Wheeled Walker Gait Goal Standby Assistance,Four Wheel Walker Gait Distance 75 Other Goals Pt will ascend and descend 1 step with RW and no more than CGA to allow safe home entrance, if she is able to progress towards this goal. Frequency of Treatment Frequency Of Treatment Once a Day Treatment Plan Physical Therapy Treatment Plan Bed Mobility Training,Transfer Training,Gait Training, Therapeutic Exercise,Balance Retraining,Post Op Education, Discharge Planning,Hot or Cold Pack,Neuromuscular Re-ed, Coordination Retraining,Manual Therapy Other Recommendations and Next Treatment Consider checking orthostatics Focus next treatment date Precautions Posterior Hip Precautions No Hip Flexion > 90 degrees,No Hip Internal Rotation,No Hip Adduction Weight Bearing Status Weight Bearing Status Weight Bear as Tolerated Recommendations To Nursing Amount of Assist Needed 2 Person Assist Discharge Recommendations PT Discharge Recommendations SNF Rehab Transportation Needs at Discharge Wheelchair/Cabulance - PT assist x1
--- NOTE | 2024-12-08 13:27 | DI.MRI.S_ITS ---
PROCEDURE: MR HEAD/BRAIN WO CON INDICATIONS: agitation, acute worsening dementia TECHNIQUE: Non-contrast axial T1 spin echo, axial T2 fast spin echo, sagittal and axial FLAIR, coronal T2 fast spin echo, axial gradient echo, axial diffusion and ADC through the brain. COMPARISON: [facility], CT, CT ANGIO HEAD, 06/15/2021, 12:12. FINDINGS: Image quality: Excellent. CSF spaces: Ventricles appear symmetric in size and shape. Basal cisterns are patent. No extra-axial fluid collections. Brain: No intracranial bleeds or mass effects. There is cerebral volume loss for age. There are periventricular and deep white matter chronic small vessel ischemic changes. Brainstem appears normal. Diffusion-weighted images show no acute infarct. No chronic ischemic insults. Normal intravascular flow voids are present. Skull and face: Calvarial bone marrow is normal in signal. Orbits are normal. Sinuses: Sinuses and mastoids are clear. IMPRESSION: 1. No acute intracranial process. 2. Moderate atrophy and chronic microvascular ischemic changes. Dictated by: Bobbi Simons M.D. on 12/08/2024 at 16:19 Approved by: Bobbi Simons M.D. on 12/08/2024 at 16:20
--- NOTE | 2024-12-08 13:28 | PM.PN.IH.1 ---
Subjective Subjective Date Patient Seen: 12/08/24 Time Patient Seen: 12:40 Interval history: The pt reports that she has no pain. She has not real concerns today, and states that she is feeling well. As per nursing, the pt was quite agitated overnight and difficult to redirect. She kept trying to get out of bed. With physical therapy this afternoon she similarly had impulsivity issues. Exam Vital Signs (past 8 hours): - 12/08/24 07:00 12/08/24 08:00 Temperature 96.9 F L Pulse Rate 93 H Respiratory Rate 20 Blood Pressure 137/62 Pulse Oximetry 93 Oxygen Delivery Method Room Air Oxygen Flow Rate 0 Fraction of Inspired Oxygen 36 SaO2/FiO2 Ratio 261 Oxygen Delivery Method Room Air Oxygen Flow Rate 0 Narrative Exam Narrative: Gen: NAD, sitting comfortably in chair CV: RRR, no murmurs Resp: clear to auscultation bilaterally Abd: soft, nontender, nondistended Ext: no edema Objective Labs 12/08/24 04:38 12/06/24 19:50 Labs: Laboratory Results - last 24 hr 12/08/24 04:38 Hgb 11.9 L Hct 34.9 L PFSH Medical History (Updated 12/06/24 @ 19:38 by Igor Spicer MD) Ruptured tympanic membrane (2013) Nonsustained supraventricular tachycardia Surgical History History of hysterectomy for malignancy (2006) Social History marital status: number of children: 2 household members: spouse lives independently: Yes caregiver/support person: No housing: house occupational status: previously employed Smoking Status: Former smoker second hand exposure: No alcohol intake: current substance use type: does not use Assessment & Plan Assessment & Plan narrative: Pt is an 79yo woman with HTN, hyperlipidemia, dementia who presented after ground level fall at home. Found to have right femoral neck fracture. 1) Femoral neck fracture: POD#1 s/p right cemented unipolar hip - Ortho consulted, appreciate ongoing care - Pain management as per Ortho 2) Hypertension: BP borderline hypotensive yesterday postoperatively, now in good range. - Continue home Metoprolol, statin. Pts does report that she hasn't been taking either of these for a long time, however at last appt 03/2024 she was on them. - Monitor BPs closely 3) Dementia: Relatively acute onset less than a year ago. Did not follow-through with recommended work-up at that time. Has continued to worsen since then. Now with significant agitation/impulsivity worse at night. - Brain MRI today - Seroquel 12.5mg nightly - Continue Ativan PRN as well, but encourage redirection first FEN: General diet Code: Full DVT ppx: SCDs Dispo: PT recommending SNF placement. Care management will discuss further with . Likely medically stable for d/c tomorrow. Time-Based Coding :: [TOTAL MINUTES] spent with patient and on the chart (including review of chart, obtaining history, exam, reviewing outside data, placing orders, documenting exam and treatment plan, and counseling patient) on [DATE]. Quality VTE Deep Vein Thrombosis/Pulmonary Embolism Present on Admission: No IH PROFEE Selvage Machine Operator Document charge(s): Yes Charge Codes Subsequent inpatient/observation care: [id number]
--- NOTE | 2024-12-08 13:53 | CM.DPC ---
DCP SNF Planning: Per MD and Ortho, pt tolerated surgery well and did have some increased confusion and agitation last night and likely to get brain MRI to r/o any further medical concerns and not yet stable for discharge yet today and to work with PT/OT. Per PT/OT lilly, pt able to participate and ambulate with FWW but needing cueing and reminders and does not remember her hip precautions and recommending SNF before home. SW met bedside with pt, spouse Arvind, and adult son and explained role and pt sitting in bedside chair and pt states she does not remember that she had hip fx and surgery but agreeable to the recommendation of SNF at d/c before home. Son and spouse confirm that SNF likely needed at d/c and pt has no hx of SNF. SW provided SNF CHoice list and preference is [facility] for location and requested referral and aware [facility] then next would be [facility] and [facility] and [facility]. RADHA Muller kindly made referral to [facility] to review. Will need [employer] MCR auth for SNF. Discussed HH as well in case pt makes progress or once d/c from SNF to home and HH services and frequency. Pt and spouse live alone but their son lives in [place] and Dtr in [place] and supportive and involved. Family appreciative and PASRR completed yesterday in anticipation of SNF. Plan: SW to follow for [facility] review to determine if they can accept and start insurance auth today. Vania Valladares, AUTOMOTIVE GLASS MECHANIC
[2024-12-08 15:00] VITALS: BP 134/63; PULSE 69; RESP 17; TEMP 36.6; O2SAT 92
[2024-12-08 20:00] VITALS: BP 116/49; PULSE 77; RESP 12; TEMP 36.8; O2SAT 92
[2024-12-08] MEDS: METOPROLOL IR 50 MG TABLET 75 MG PO (20:55)
[2024-12-08] MEDS: ATORVASTATIN 20 MG TABLET 10 MG PO (20:56)
[2024-12-08] MEDS: QUETIAPINE 25 MG TABLET 12.5 MG PO (20:56)
[2024-12-09] VITALS (7 sets, daily range): BP systolic 105–145; BP diastolic 43–81; PULSE 57–81; RESP 15–20; TEMP 36.2–36.8; O2SAT 91–96
[2024-12-09] MEDS: IBUPROFEN 400 MG TABLET PO ×4 (01:51→20:04)
--- NOTE | 2024-12-09 06:21 | PC.NURSE ---
pt was transferred from ACU to ICU via bed, A&Ox4, denies dizziness, BPs 90-100/50s, MAPs >60, afib 100-110s, lungs clear, O2 sats >92% on 2L NC, u/o 250cc clear felix urine overnight, c/o pain to bilat hips, prn and sched analgesics given with effect, L hip dsg CDI, lab results communicated to building economist MD, order for am ECHO placed, bed alarm on, call kelly within reach, care continued
--- NOTE | 2024-12-09 08:05 | P.PN_ITS ---
Subjective Subjective Interval history: Cherry Mcmahon is an 79 year old female who is POD#2 s/p right cemented unipolar hip for a right femoral neck fracture by Dr. Briscoe. This morning patient reports that she is doing well overall, she states her pain is okay at rest but is worse w/ movement. Despite the pain she has been able to work w/ PT and ambulate some around her room, she is able to use bedside commode. She is slightly confused still during conversation today which limits history. Denies any weakness, numbness or tingling of the right lower extremity. She states she has no new questions or concerns for me today. Exam Vital Signs (past 8 hours): - 12/09/24 04:00 Temperature 97.2 F L Pulse Rate 57 L Respiratory Rate 20 Blood Pressure 121/48 L Pulse Oximetry 95 Oxygen Flow Rate 3.5 Fraction of Inspired Oxygen 32 SaO2/FiO2 Ratio 261 Oxygen Delivery Method Nasal Cannula Oxygen Flow Rate 3.5 Narrative Exam Narrative: Patient lying comfortably in bed during our interview today. No acute distress. Mildly confused. Grossly normal alignment of the RLE. 5/5 strength with DF, PF, EHL bilaterally. Gross sensation intact throughout bilateral lower extremities. Calves soft and non-tender bilaterally. SCDs are on and functioning. Brisk capillary refill, pulses intact. Post-surgical Aquacel dressing clean, dry and intact over the right posterior hip with scant drainage. Objective Labs 12/08/24 04:38 12/06/24 19:50 [facility] Medical History (Updated 12/06/24 @ 19:38 by Igor Spicer MD) Ruptured tympanic membrane (2013) Nonsustained supraventricular tachycardia Surgical History History of hysterectomy for malignancy (2006) Social History marital status: number of children: 2 household members: spouse lives independently: Yes caregiver/support person: No housing: house occupational status: previously employed Smoking Status: Former smoker second hand exposure: No alcohol intake: current substance use type: does not use Assessment & Plan Post-op Postoperative Procedures: Procedures Operation Date: 12/07/24 09:00 Actual Procedure Side Surgeon p Hip Hemiarthroplasty [place] Right Radha Briscoe MD Postoperative plan narrative: 1) Discharge disposition per Medicine. 2) Continue multimodal pain management with ice to the hip for additional pain control. 3) ASA b.i.d. for DVT prophylaxis. SCDs to be worn while in bed. 4) Work with physical therapy to improve mobility. WBAT, maintain posterior hip precautions for 6 weeks. 5) Keep dressing intact, clean, dry until 2 week postop appointment. No soaking the incision site in pools or tubs. No topical ointments or creams to the incision site. 6) Follow up at [facility] orthopedics in 2 weeks for a postop appointment and wound check. All patient's questions were answered, she demonstrates understanding and is in agreement with the plan. Call our office if any questions or concerns arise. Quality VTE Deep Vein Thrombosis/Pulmonary Embolism Present on Admission: No
[2024-12-09] MEDS: polyethylene glycoL 3350 17 GM POWD.PACK PO (08:21)
[2024-12-09] MEDS: DOCUSATE 100 MG CAPSULE PO ×2 (08:21→20:04)
[2024-12-09] MEDS: ACETAMINOPHEN 325 MG TABLET 650 MG PO ×2 (08:21→15:48)
[2024-12-09] MEDS: ASPIRIN EC 81 MG TABLET PO ×2 (08:21→22:01)
--- NOTE | 2024-12-09 11:59 | OT.IP.TRT ---
Current Diagnoses Essential (primary) hypertension (12/06/24) Fracture of unspecified part of neck of right femur, initial encounter for closed fracture (12/06/24) Surgery Performed Operation Date: 12/07/24 09:00 Actual Procedures p Hip Hemiarthroplasty [place](Right) - Radha Briscoe MD Occupational Therapy Treatment Note M2 OT-IP Current Condition Start: 12/08/24 10:49 Freq: Status: Active Protocol: Document 12/08/24 10:50 CGR (Rec: 12/08/24 11:04 CGR [id number]) Occupational Therapy Current Condition Current Condition Evaluation Date 12/08/24 Treatment Diagnosis fall with R hip fx, posterior approach WBAT Diagnosis Onset Date 12/06/24 Post Operative Precautions Posterior Hip Precautions No Hip Flexion > 90 degrees,No Hip Internal Rotation,No Hip Adduction Weight Bearing Status Weight Bearing Status Weight Bear as Tolerated M3 OT- IP Subjective and Pain Start: 12/08/24 10:49 Freq: Status: Active Protocol: Document 12/09/24 11:59 [facility] (Rec: 12/09/24 12:07 [facility] [id number]) OT- Subjective Occupational Therapy Visit Type Type Treatment Note Visit Start Time 11:35 Visit Stop Time 11:59 Occupational Therapy Visit Comments Patient Comments Pt agreed to get up. OT Pain Assessment Pain When Pain Assessed During Mobility Pain Present Pain Present Pain Reported Location Right leg Pain Behaviors Facial Grimacing,Holding Area M4 OT- IP ADL's Start: 12/08/24 10:49 Freq: Status: Active Protocol: Document 12/09/24 11:59 [facility] (Rec: 12/09/24 12:07 [facility] [id number]) OT [id number] Comments OT Self-Feeding Comments not meal time OT ADL-Grooming General Evaluation Grooming Ability Minimal Assistance Areas Needing Assistance Combing/Brushing Hair Comments OT Grooming Comments THOMAS for completeness of her hair from her son. OT ADL-Oral Care General Eval Oral Care Ability Standby Assistance Comments Oral Care Comments MOD vc for completeness and sequencing for the task. OT ADL-Dressing General Eval Lower Body Dressing Ability Maximum Assistance,Total Assistance Areas Needing Assistance Shoes OT ADL-Toileting Comments OT Toileting Comments not performed OT ADL-Bathing Comments OT Bathing Comments not performed M5 OT- IP IADL's Start: 12/08/24 10:49 Freq: Status: Active Protocol: Document 12/08/24 10:50 CGR (Rec: 12/08/24 11:04 CGR [id number]) OT-Instrumental Activities of Daily Living Deficits IADL Deficits Identified Deficits Home Safety Awareness Awareness of Need for Assistance at Home Decreased Awareness Ability to Problem Solve Emergency Unable to Problem Solve Situations Medication Management Medication Management Caregiver Administers Money Management Money Management Caregiver Provides Assistance Meal Preparation Meal Preparation Caregiver Provides Assist Career Manager Career Manager Caregiver Provides Assist M6 OT- IP Functional Cognition Start: 12/08/24 10:49 Freq: Status: Active Protocol: Document 12/09/24 11:59 [facility] (Rec: 12/09/24 12:07 [facility] [id number]) Cognitive Factors Limiting Selfcare Function Cognitive Ability Level of Alertness Alert,Confusional State Patient Orientation Name Attention Span Ability Capable of Focused Attention, Unable to Sustain Attention Ability to Follow Commands Able to Follow One Step Commands with Increased Time, Able to Follow One Step Commands with Repetition Cognitive Comments Cognitive Assessment Comments Pt not realizing that she is in the hospital. Pt thinking the call light was someting she needed to have for her mouth care. Pt needing concrete steps follow for ADL and mobility needs. Pt also thinks that her father is still alive and that he is 90 years old.Pt is probabaly confusing her father with her spouse. M7 OT- IP Mobility and Balance Start: 12/08/24 10:49 Freq: Status: Active Protocol: Document 12/09/24 11:59 [facility] (Rec: 12/09/24 12:07 [facility] [id number]) OT- Bed Mobility Assessment Supine to Sit Supine to Sit Assist Maximum Assistance,Bedrails Scooting Scooting to Edge of Bed Moderate Assistance,1 Person Assistance OT-Transfer Assessment Sit to and From Stand Sit to and from Stand Moderate Assistance,1 Person Assistance Transfers Transfer Ability Moderate Assistance,1 Person Assistance Technique Transfer Destination Bed,Chair Transfer Technique Stand Step Pivot Devices Transfer Assistive Devices Gait Belt,Front Wheeled Walker Comments Mobility Comments MAXA to help get pt to the edge of the bed. MODA X 1 to stand with the FWW and transfer to the recliner. Pillow placed in between her legs as pt has posterior precautions but unable to follow due to her cognitive deficits. OT- Balance Assessment Sitting Balance and Reactions Static Sitting Balance Ability Good Dynamic Sitting Balance Ability Fair Standing Balance and Reactions Static Standing Balance Ability Fair Dynamic Standing Balance Ability Poor M8 OT- IP Objective Assessments Start: 12/08/24 10:49 Freq: Status: Active Protocol: Document 12/08/24 10:50 [facility] (Rec: 12/08/24 11:04 [facility] [id number]) OT Gross Range of Motion Upper Extremity Range of Motion Assessment Within Functional Limits OT Strength Upper Extremity Strength Assessment Within Functional Limits Comments Strength Comments grossly 4/5 OT- Coordination Assessment Upper Extremity Finger to Nose Test Within Functional Limits Finger Tapping Test Within Functional Limits OT-Muscle Tone Assessment Muscle Tone WNL Yes OT Sensation Assessment Edema Edema Absent M9 OT- IP Assessment and Plan Start: 12/08/24 10:49 Freq: Status: Active Protocol: Document 12/09/24 11:59 [facility] (Rec: 12/09/24 12:07 [facility] [id number]) OT Summary Assessment and Plan Potential Rehabilitation Potential Fair Analytic Complexity at Evaluation Moderate Summary OT Impairments Pain,Balance,Functional Cognition,Functional Mobility, Grooming,Dressing,Toileting, Bathing,Toilet Transfers, Shower Transfers,Activity Tolerance Progress Towards Goals Progressing Toward Goals,Slow Progress due to Cognition Assessment Summary Pt continues to be pleasantly confused and able to do oral and grooming needs while seated in the recliner given vc for sequencing and completeness. Pt going to skilled rehab when medically stable. Goals Self-Feeding Goal Standby Assistance Grooming Goal Standby Assistance Dressing Goal Standby Assistance Toileting Goal Standby Assistance Bathing Goal Minimal Assistance Toilet Transfer Goal Standby Assistance Shower Transfer Goal Contact Guard Assistance Days to Meet Goals 15 Frequency of Treatment Other frequency 5x per week Treatment Plan OT Treatment Plan ADL Training,Functional Cognition Training,Functional Mobility,Patient/Family Education,Discharge Planning Other Treatment Recommendations and Next Up to bathroom if appropriate. Treatment Focus LB dressing Discharge Recommendations OT Discharge Recommendations SNF Rehab Transportation Needs at Discharge Wheelchair/Cabulance
--- NOTE | 2024-12-09 12:00 | PT.IPTN ---
Current Diagnoses Essential (primary) hypertension (12/06/24) Fracture of unspecified part of neck of right femur, initial encounter for closed fracture (12/06/24) Surgery Performed Operation Date: 12/07/24 09:00 Actual Procedures p Hip Hemiarthroplasty [place](Right) - Radha Briscoe MD Physical Therapy Treatment Note M2 PT-IP Current Condition Start: 12/08/24 10:50 Freq: NEEDED Status: Active Protocol: Document 12/08/24 10:27 MB (Rec: 12/08/24 11:04 MB [id number]) Physical Therapy Current Condition Current Condition Evaluation Date 12/08/24 Treatment Diagnosis Right hip fracture s/p right hip cemented unipolar M3 PT-IP Subjective Start: 12/08/24 10:50 Freq: NEEDED Status: Active Protocol: Document 12/09/24 12:00 AB (Rec: 12/09/24 13:46 AB [id number]) Subjective Physical Therapy Visit Type Type Treatment Note Visit Start Time 12:00 Visit Stop Time 12:20 Number of GARBAGE WORKER Visits 0 Physical Therapy Visit Comments Patient Comments agreeable to do PT Therapy Pain Assessment Pain When Pain Assessed During Mobility Location Right leg Scale Used pain scale not stated M4 PT-IP Mobility and Gait Start: 12/08/24 10:50 Freq: NEEDED Status: Active Protocol: Document 12/09/24 12:00 AB (Rec: 12/09/24 13:46 AB [id number]) PT-Transfer Assessment Sit to and From Stand Sit to and from Stand Maximum Assistance,1 Person Assistance,Use of Upper Extremities Equipment Transfer Assistive Device Gait Belt,Front Wheeled Walker Orthotic/Prosthetic Devices or Brace: No Transfers Transfer Destination Bedside Commode Transfer Technique ambulated Transfer Ability Level of Assist Moderate Assistance,Maximum Assistance,1 Person Assistance ,Use of Upper Extremities Comments Mobility Comments pt sitting on the chair and agreed to do PT. pt with dx dementia. reviewed R hip posterior precautions but pt unable to recall or comprehend needing max cues with all tasks. sit to stand from chair max A and max cues. pt ambulated ~ 15 ft mod to max A and stated that she needs to use the toilet. bedside commode close by and pt took steps to use the commode. assisted pt with brief management. max A for controlled descent to commode and max cues for hip precautions. sit to stand from commode max A and max cues and pt ambulated back to chair ~ 10 ft using fWW mod to max A and max cues. pt sat on chair. positioned pt on the chair. chair alarm on. table set up for lunch. call light and table placed within reach. Gait Assessment Gait Gait Assistance Required: Moderate Assistance,Maximum Assistance,1 Person Assist Distance (Feet) 15 Able to Maintain Weight Bearing Status Yes During Gait Assistive Devices Assistive Device Gait Belt,Front Wheeled Walker Gait Deviations General Gait Pattern Antalgic,Decreased Stride Length,Decreased Feet Clearance Factors Limiting Gait Function Factors Limiting Gait Function Decreased Activity Tolerance, Decreased Strength,Difficulty Following Directions,Limited Range of Motion,Pain,Poor Balance,Poor Safety Awareness M5 PT-IP Objective Assessments Start: 12/08/24 10:50 Freq: NEEDED Status: Active Protocol: Document 12/08/24 10:27 MB (Rec: 12/08/24 11:04 MB [id number]) Orientation Orientation/Cognition Level of Alertness Confusional State Orientation Name Safety Awareness Decreased Safety Awareness Memory Description Short Term Impaired,Intermediate Impaired Gross Range of Motion Upper Extremity ROM Impairments Defer to OT Lower Extremity ROM Assessment Right Impaired Impairments Hip tends to rest in IR and pt has trouble following commands for positioning, ankle and knee also with reduced range this date Strength Lower Extremity Strength Assessment Right Impaired Comments Strength Comments Pt does not tolerate range or MMT right ankle, knee hip and does present with limitations Coordination Assessment Gross Coordination Gross Coordination Impaired Sensation Assessment Comments Sensation Comments Does not follow commands M6 PT-IP Treatment Start: 12/08/24 10:50 Freq: NEEDED Status: Active Protocol: Document 12/09/24 12:00 AB (Rec: 12/09/24 13:46 AB [id number]) Physical Therapy Treatment Education Education Provided Precautions,Safety M7 PT-IP Assessment and Plan Start: 12/08/24 10:50 Freq: NEEDED Status: Active Protocol: Document 12/09/24 12:00 AB (Rec: 12/09/24 13:46 AB [id number]) PT Summary Assessment and Plan Potential Rehabilitation Potential Fair Summary Impairments Pain,ROM,Strength,Balance, Coordination,Sensation,Tone, Cognition,Bed Mobility, Transfers,Gait,Activity Tolerance Progress Towards Goals Slow Progress - Other Assessment Summary pt requiring max A for sit to stand and mod to max A for ambulation using fWW with max cues with all tasks. pt with dx dementia needing max cues and pt unable to recall or is not aware of her posterior hip precautions despite education provided. pt will require SNF rehab to improve overall strength and mobility. Goals Bed Mobility Goal Standby Assistance Transfer Goal Standby Assistance,Front Wheeled Walker Gait Goal Standby Assistance,Front Wheel Walker Gait Distance 75 Other Goals Pt will ascend and descend 1 step with RW and no more than CGA to allow safe home entrance, if she is able to progress towards this goal. Days to Meet Goals 10 Frequency of Treatment Frequency Of Treatment Once a Day Treatment Plan Physical Therapy Treatment Plan Bed Mobility Training,Transfer Training,Gait Training, Therapeutic Exercise,Balance Retraining,Post Op Education, Discharge Planning,Hot or Cold Pack,Neuromuscular Re-ed, Coordination Retraining,Manual Therapy Precautions Posterior Hip Precautions No Hip Flexion > 90 degrees,No Hip Internal Rotation,No Hip Adduction Weight Bearing Status Weight Bearing Status Weight Bear as Tolerated Allowed Weight Bearing Amount (enter % RLE WBAT or #) (%) Recommendations To Nursing Amount of Assist Needed 2 Person Assist Discharge Recommendations PT Discharge Recommendations SNF Rehab Transportation Needs at Discharge Wheelchair/Cabulance - PT assist 1PA
--- NOTE | 2024-12-09 15:51 | P.PN_ITS ---
Subjective Subjective Interval history: The pt this morning reports feeling well. She was able to ambulate to the restroom this morning with some assistance without any pain. She denies any SOB, cough, chest pain. The pt has no specific concerns today. She does not recall falling or why she is in the hospital. Exam Vital Signs (past 8 hours): - 12/09/24 08:00 12/09/24 08:21 12/09/24 12:00 Temperature 97.2 F L 97.7 F Pulse Rate 67 72 Respiratory Rate 17 15 Blood Pressure 133/64 114/45 L Pulse Oximetry 93 95 96 Oxygen Delivery Method Nasal Cannula Oxygen Flow Rate 0 3.5 0 12/09/24 15:00 Temperature 97.8 F Pulse Rate 69 Respiratory Rate 17 Blood Pressure 136/55 L Pulse Oximetry 93 Oxygen Delivery Method Oxygen Flow Rate 0 Fraction of Inspired Oxygen 32 SaO2/FiO2 Ratio 261 Oxygen Delivery Method Nasal Cannula Oxygen Flow Rate 0 Narrative Exam Narrative: Gen: NAD, sitting comfortably in chair CV: RRR, no murmurs Resp: clear to auscultation bilaterally Abd: soft, nontender, nondistended Ext: no edema Objective Labs 12/08/24 04:38 12/06/24 19:50 PFSH Medical History (Updated 12/06/24 @ 19:38 by Igor Spicer MD) Ruptured tympanic membrane (2013) Nonsustained supraventricular tachycardia Surgical History History of hysterectomy for malignancy (2006) Social History marital status: number of children: 2 household members: spouse lives independently: Yes caregiver/support person: No housing: house occupational status: previously employed Smoking Status: Former smoker second hand exposure: No alcohol intake: current substance use type: does not use Assessment & Plan Assessment & Plan narrative: Pt is an 79yo woman with HTN, hyperlipidemia, dementia who presented after ground level fall at home. Found to have right femoral neck fracture. 1) Femoral neck fracture: POD#2 s/p right cemented unipolar hip - Ortho consulted, appreciate ongoing care - Tylenol and Ibuprofen for pain, pt not requiring narcotic pain medication 2) Hypertension: BP stable - Continue home Metoprolol, statin. Pts does report that she hasn't been taking either of these for a long time, however at last appt 03/2024 she was on them. - Monitor BPs closely 3) Dementia: Relatively acute onset less than a year ago. Did not follow- through with recommended work-up at that time. Has continued to worsen since then. Now with significant agitation/impulsivity worse at night. Brain MRI yesterday normal. - Seroquel 12.5mg nightly - Start Memantine FEN: General diet Code: Full DVT ppx: SCDs Dispo: PT recommending SNF placement. Care management working on placement. Pt is medically stable for d/c. Time-Based Coding :: [TOTAL MINUTES] spent with patient and on the chart (including review of chart, obtaining history, exam, reviewing outside data, placing orders, documenting exam and treatment plan, and counseling patient) on [DATE]. Quality VTE Deep Vein Thrombosis/Pulmonary Embolism Present on Admission: No [facility] PROFEE Grinder Set Up Operator Universal Document charge(s): Yes Charge Codes Subsequent inpatient/observation care: [id number]
--- NOTE | 2024-12-09 16:49 | PC.NURSE ---
Progress Note Patient A&O to self, birthday and place, short term deficit, forgetful and impulsive at times. Easily redirectable, calm and cooperative with care. Seroquel initiated last night for dementia per MD Barkley. Through out shift patient able to rest peacefully in between activity and only attempting to get out of bed only when needing to use bathroom. Unable to successfully use call light, patient in view room and bed alarm on.
[2024-12-09] MEDS: QUETIAPINE 25 MG TABLET 12.5 MG PO (20:04)
[2024-12-09] MEDS: ATORVASTATIN 20 MG TABLET 10 MG PO (20:05)
[2024-12-09] MEDS: METOPROLOL IR 50 MG TABLET 75 MG PO (20:05)
[2024-12-10 04:00] VITALS: BP 127/66; PULSE 66; RESP 17; TEMP 36.5; O2SAT 94
[2024-12-10] MEDS: IBUPROFEN 400 MG TABLET PO (04:01)
[2024-12-10 08:00] VITALS: BP 150/62; PULSE 68; RESP 17; TEMP 36.7; O2SAT 94
[2024-12-10] MEDS: DOCUSATE 100 MG CAPSULE PO (08:10)
[2024-12-10] MEDS: MEMANTINE HCL 5 MG TABLET PO (08:10)
[2024-12-10] MEDS: ASPIRIN EC 81 MG TABLET PO (08:10)
--- NOTE | 2024-12-10 09:57 | PM.DS.IH.1 ---
History of Present Illness History of Present Illness Date Patient Seen: 12/10/24 Chief complaint: Fall, no blood thinners, lt leg px Narrative: Pt is an 79yo woman with HTN, hyperlipidemia, dementia who presented after ground level fall at home. History was limited due to the pts dementia. As per her , he had gone out the car and was waiting for her. She took longer than expected, and when he came back inside she was laying on the ground by a single step up from their kitchen into their living room. The pt recalls trying to oropeza to get outside, and potentially tripping. The pt had right leg and hip pain, but was able to ambulate with minimal assistance initially. The pain then progressively worsened and she came to the ED for evaluation. The pts denies any associated urinary incontinence or biting of the tongue with the fall. The pt does not recall any associated chest pain, SOB, palpitations - but also doesn't really recall falling. Discharge Providers Provider Date of admission: 12/06/24 20:52 Discharge Date: 12/10/24 Primary care physician: Gerri Barkley MD Consults: 12/07/24 12:48 Consult to Discharge Planning Routine Comment: Consult to Occupational Therapy Evaluate & Treat Comment: Physician Instructions: Evaluate and treat Consult to Physical Therapy Evaluate & Treat Comment: Physician Instructions: post op JOSE protocol 12/07/24 16:50 Consult to Physician Routine Comment: Consulting Provider: Radha Briscoe Reason for consultation: right hip fx Has provider been notified: Yes Discharge provider: Gerri Barkley MD Summary Hospital Course Discharge Diagnosis: Femoral neck fracture Hypertension Dementia Hospital Course: The pt was admitted with a right femoral neck fracture. She underwent surgery, and the day of discharge was POD #3 s/p right cemented unipolar hip. After surgery, her pain was easily managed. At the time of discharge she was only requiring Tylenol and Ibuprofen. The pt did have significant sundowning and general impulsivity while in the hospital. Brain MRI was completed that was negative. She was initiated on Seroquel in the evening, which helped with her agitation significantly. Memantine was also started due to the severity of her dementia. At the time of discharge the pt was felt by PT to discharge home. She will have home health PT. Status at Discharge Cognitive/behavioral status at discharge: at baseline, confused Functional status at discharge: uses cane/walker Overall status at discharge: patient is back to baseline Exam Vital Signs (past 8 hours): - 12/10/24 04:00 12/10/24 07:00 12/10/24 08:00 Temperature 97.7 F 98.0 F Pulse Rate 66 68 Respiratory Rate 17 17 Blood Pressure 127/66 150/62 H Pulse Oximetry 94 94 Oxygen Delivery Method Room Air Oxygen Flow Rate 0 0 Fraction of Inspired Oxygen 32 SaO2/FiO2 Ratio 261 Oxygen Delivery Method Room Air Oxygen Flow Rate 0 Narrative Exam Narrative: Gen: NAD, sitting comfortably in chair CV: RRR, no murmurs Resp: clear to auscultation bilaterally Abd: soft, nontender, nondistended Ext: no edema Objective Labs 12/08/24 04:38 12/06/24 19:50 PFS Medical History (Updated 12/06/24 @ 19:38 by Igor Spicer MD) Ruptured tympanic membrane (2013) Nonsustained supraventricular tachycardia Surgical History History of hysterectomy for malignancy (2006) Social History marital status: number of children: 2 household members: spouse lives independently: Yes caregiver/support person: No housing: house occupational status: previously employed Smoking Status: Former smoker second hand exposure: No alcohol intake: current substance use type: does not use Discharge Plan Discharge Plan Patient Disposition: Home Discharge orders & Medications Prescriptions: New quetiapine 25 mg Tablet 12.5 mg PO BEDTIME Qty: 30 0RF acetaminophen 325 mg Tablet 650 mg PO Q6H PRN (Reason: Fever/Mild Pain (1-3)) Qty: 30 0RF ibuprofen 400 mg Tablet 400 mg PO Q4H PRN (Reason: Pain, Mild (1-3)) Qty: 60 0RF metoprolol tartrate 50 mg Tablet 75 mg PO BEDTIME Qty: 45 2RF memantine 5 mg Tablet 5 mg PO DAILY Qty: 30 0RF Continued simvastatin 20 mg tablet 20 mg PO BEDTIME Qty: 90 3RF multivitamin [Multiple Vitamins] 1 EACH tablet 1 tab PO QPM Qty: 0 magnesium 200 mg Tablet 1 tab PO QPM Qty: 0 vitamin A 3,000 mcg (10,000 unit) Capsule 1 cap PO QPM Qty: 0 ascorbic acid (vitamin C) 500 mg Tablet 1 tab PO QPM Qty: 0 calcium citrate 200 mg (950 mg) Tablet 1 tab PO QPM Qty: 0 cholecalciferol (vitamin D3) [Vitamin D3] 25 mcg (1,000 unit) Tablet 1 tab PO QPM Qty: 0 Changed aspirin [Adult Aspirin Regimen] 81 mg tablet,delayed release (DR/EC) 81 mg PO BID Qty: 60 0RF Discontinued propranolol 10 mg Tablet 10 mg PO TID MDD 30 mg PRN (Reason: Anxiety) Rx Instructions: Take 1 tablet by mouth three times daily as needed for anxiety. To be taken as needed prior to driving for anxiety. metoprolol tartrate 50 mg Tablet 75 mg PO QPM Rx Instructions: Take 1 and 1/2 tablet by mouth daily in the evening. Follow up/Referrals: Gerri Barkley MD [Primary Care Provider] - 2 Weeks Diet/Activity/Treatments Diet: Regular Skin/Wound/Dressing Care Report to your healthcare provider any signs of infection, such as:: increased pain Visit Report/Discharge Packet Stand Alone Forms: Patient Portal/API, Stroke Signs & Symptoms Discharge Data Primary Care Provider: Gerri Barkley Discharges patient from system. Discharge Date/Time: 12/10/24 13:05 Quality VTE Deep Vein Thrombosis/Pulmonary Embolism Present on Admission: No IH PROFEE Charge Codes Discharge inpatient/observation: [id number]
--- NOTE | 2024-12-10 11:24 | PT.IPTN ---
Addendum entered and electronically signed by Mallory Reeder PTA 12/10/24 12:54: ASSOCIATE PROFESSOR PHYSICIAN discussed with OT, show how to proper fit FWW for pt. Original Note: Current Diagnoses Essential (primary) hypertension (12/06/24) Fracture of unspecified part of neck of right femur, initial encounter for closed fracture (12/06/24) Surgery Performed Operation Date: 12/07/24 09:00 Actual Procedures p Hip Hemiarthroplasty [place](Right) - Radha Briscoe MD Physical Therapy Treatment Note M2 PT-IP Current Condition Start: 12/08/24 10:50 Freq: NEEDED Status: Active Protocol: Document 12/10/24 10:43 SP (Rec: 12/10/24 12:52 SP [id number]) Physical Therapy Current Condition Current Condition Evaluation Date 12/08/24 Treatment Diagnosis Right hip fracture s/p right hip cemented unipolar M3 PT-IP Subjective Start: 12/08/24 10:50 Freq: NEEDED Status: Active Protocol: Document 12/10/24 10:43 SP (Rec: 12/10/24 12:52 SP [id number]) Subjective Physical Therapy Visit Type Type Treatment Note Visit Start Time 10:43 Visit Stop Time 11:24 Notes completed caregiver training. Number of ASSOCIATE PROFESSOR PHYSICIAN Visits 1 Physical Therapy Visit Comments Patient Comments Pt agreeable to working with ASSOCIATE PROFESSOR PHYSICIAN. Therapy Pain Assessment Pain When Pain Assessed At Rest Location Right leg Intensity 0 Scale Used reports sore R hip no scale rated Description Aching,Pressure,With Movement Pain Behaviors Facial Grimacing,Restlessness Pain Management Techniques Distraction,Re-positioning M4 PT-IP Mobility and Gait Start: 12/08/24 10:50 Freq: NEEDED Status: Active Protocol: Document 12/10/24 10:43 SP (Rec: 12/10/24 12:52 SP [id number]) PT-Bed Mobility Assessment Supine to Sit Supine to Sit Minimal Assistance,1 Person Assistance Sit to Supine Sit to Supine Standby Assistance,1 Person Assistance Scooting Scooting to Edge of Bed Standby Assistance Scooting Up and Down in Bed Standby Assistance PT-Transfer Assessment Sit to and From Stand Sit to and from Stand Contact Guard Assistance,1 Person Assistance,Use of Upper Extremities Equipment Transfer Assistive Device Gait Belt,Front Wheeled Walker Orthotic/Prosthetic Devices or Brace: No Transfers Transfer Destination Bed,Chair,Toilet Transfer Technique pt ambulated with FWW Transfer Ability Level of Assist Contact Guard Assistance,1 Person Assistance,Use of Upper Extremities Comments Mobility Comments Pt up in chair when arrived, in room, completed CGT donning GB under instruction of ASSOCIATE PROFESSOR PHYSICIAN. Pt's severe dementia needs reminders of her fall and why her R hip is sore, doesn't recall. Pt completed STS, cued redirections proper hand placement push from chair vs FWW CGA, SPT to bed withFWW CGA, complete sit> supine sBA able self RLE into bed and center self. Sup>sit Min A via pt pull from his hands self RLE repositioning self. Completed gait to bathroom, cues from to pivot and center self and UE support low self sit then stand assimulation toilet CGA, Discussion may need to help pt in bathroom, needs CGA/SBA for safety he is aware in agreement. Gait around room and completed 1 PF step with FWW, CGA via support balance and FWW positioning cues for sequencing BLEs proper sequence asc LLE/ RLE descend and use of GB for safety during mobility, no LOB. Pt returned to room chair. ASSOCIATE PROFESSOR PHYSICIAN donned chair alarm and provdied call light with all needs in reach before left.ASSOCIATE PROFESSOR PHYSICIAN updated Communication board, reported to ASSOCIATE DIRECTOR FINANCIAL AID, OT and given update to ICU nurse to speak to CareMgt, door locked and no answer. Gait Assessment Gait Gait Assistance Required: Contact Guard Assist,1 Person Assist Distance (Feet) 30 Able to Maintain Weight Bearing Status Yes During Gait Assistive Devices Assistive Device Gait Belt,Front Wheeled Walker Orthotic/Prosthetic Devices or Brace: No Gait Deviations General Gait Pattern Antalgic,Decreased Stride Length,Decreased Feet Clearance,Flexed Trunk,Narrow Based Gait Factors Limiting Gait Function Factors Limiting Gait Function Decreased Activity Tolerance, Decreased Strength,Difficulty Following Directions,Limited Range of Motion,Pain,Poor Safety Awareness Comments Gait Comments Cues by ASSOCIATE PROFESSOR PHYSICIAN and , marching steps during fwd and pivot turns to for foot clearance and maintain hip precautions with proximiityto FWW. Stair Climbing Assessment Evaluation Level of Assist On Stairs Contact Guard Assistance, Minimal Assistance,1 Person Assistance Devices Stair Climbing Assistive Devices Front Wheel Walker Technique/Endurance Stair Climbing Direction Ascend and Descend Stair Climbing Technique Step to Step Number of Steps Climbed 1 Stair Climbing Set # Repetitions (reps) 1 Comments Stair Climbing Comments see mobility comments, cues proper sequencing FWW and BLEs . with pt and for good performance. PT-Balance Assessment Sitting Balance and Reactions Static Sitting Balance Ability Normal Dynamic Sitting Balance Ability Good Standing Balance and Reactions Static Standing Balance Ability Good Dynamic Standing Balance Ability Fair Device Used FWW M5 PT-IP Objective Assessments Start: 12/08/24 10:50 Freq: NEEDED Status: Active Protocol: Document 12/08/24 10:27 MB (Rec: 12/08/24 11:04 MB [id number]) Orientation Orientation/Cognition Level of Alertness Confusional State Orientation Name Safety Awareness Decreased Safety Awareness Memory Description Short Term Impaired,Detention Impaired Gross Range of Motion Upper Extremity ROM Impairments Defer to OT Lower Extremity ROM Assessment Right Impaired Impairments Hip tends to rest in IR and pt has trouble following commands for positioning, ankle and knee also with reduced range this date Strength Lower Extremity Strength Assessment Right Impaired Comments Strength Comments Pt does not tolerate range or MMT right ankle, knee hip and does present with limitations Coordination Assessment Gross Coordination Gross Coordination Impaired Sensation Assessment Comments Sensation Comments Does not follow commands M6 PT-IP Treatment Start: 12/08/24 10:50 Freq: NEEDED Status: Active Protocol: Document 12/10/24 10:43 SP (Rec: 12/10/24 12:52 SP [id number]) Physical Therapy Treatment Education Education Provided Precautions,Safety Other Treatments Other Treatment Performed ASSOCIATE PROFESSOR PHYSICIAN and instructed pt will need assist in bathroom with pericare and pant mgt, and recommend use of GB at this time. OT will review shower support inquired. M7 PT-IP Assessment and Plan Start: 12/08/24 10:50 Freq: NEEDED Status: Active Protocol: Document 12/10/24 10:43 SP (Rec: 12/10/24 12:52 SP [id number]) PT Summary Assessment and Plan Potential Rehabilitation Potential Good Summary Impairments Pain,ROM,Strength,Balance, Coordination,Sensation,Tone, Cognition,Bed Mobility, Transfers,Gait,Activity Tolerance Progress Towards Goals Progressing Toward Goals,Slow Progress due to Activity Tolerance Assessment Summary Pt is CGA with FWW cuing from ASSOCIATE PROFESSOR PHYSICIAN and for safety FWW , reminds pt throughout mobililty for maintain precautions. She is able complete 1 step mgt has home with FWW best CGA able to assist her minimally needed for safety. Son purchased FWW for pt. Pt is ok to return home wit 24 /7 with recommendation HHPT, possible shower aid more discussion of OT for their support when medically cleared . Goals Bed Mobility Goal Standby Assistance Transfer Goal Standby Assistance,Front Wheeled Walker Gait Goal Standby Assistance,Front Wheel Walker Gait Distance 75 Other Goals Pt will ascend and descend 1 step with RW and no more than CGA to allow safe home entrance, if she is able to progress towards this goal. Days to Meet Goals 10 Frequency of Treatment Frequency Of Treatment Once a Day Treatment Plan Physical Therapy Treatment Plan Bed Mobility Training,Transfer Training,Gait Training, Therapeutic Exercise,Balance Retraining,Post Op Education, Discharge Planning,Hot or Cold Pack,Neuromuscular Re-ed, Coordination Retraining,Manual Therapy Other Recommendations and Next Treatment Further distance gait, Focus transfers, bed mob, LE ex. Precautions Posterior Hip Precautions No Hip Flexion > 90 degrees,No Hip Internal Rotation,No Hip Adduction Other Precautions pt poor recall to precautions, 3/3 good cues to pt to maintain. Weight Bearing Status Weight Bearing Status Weight Bear as Tolerated Allowed Weight Bearing Amount (enter % RLE WBAT or #) (%) Recommendations To Nursing Amount of Assist Needed 1 Person Assist Discharge Recommendations PT Discharge Recommendations Home with 23/04 Assist Available,Home Health Transportation Needs at Discharge Private Vehicle - PT assist 1PA
[2024-12-10 12:00] VITALS: BP 132/66; PULSE 66; RESP 15; O2SAT 94
--- NOTE | 2024-12-10 12:05 | OT.IP.TRT ---
Current Diagnoses Essential (primary) hypertension (12/06/24) Fracture of unspecified part of neck of right femur, initial encounter for closed fracture (12/06/24) Surgery Performed Operation Date: 12/07/24 09:00 Actual Procedures p Hip Hemiarthroplasty [place](Right) - Radha Briscoe MD Occupational Therapy Treatment Note M2 OT-IP Current Condition Start: 12/08/24 10:49 Freq: Status: Active Protocol: Document 12/08/24 10:50 CGR (Rec: 12/08/24 11:04 CGR [id number]) Occupational Therapy Current Condition Current Condition Evaluation Date 12/08/24 Treatment Diagnosis fall with R hip fx, posterior approach WBAT Diagnosis Onset Date 12/06/24 Post Operative Precautions Posterior Hip Precautions No Hip Flexion > 90 degrees,No Hip Internal Rotation,No Hip Adduction Weight Bearing Status Weight Bearing Status Weight Bear as Tolerated M3 OT- IP Subjective and Pain Start: 12/08/24 10:49 Freq: Status: Active Protocol: Document 12/10/24 12:22 CCC (Rec: 12/10/24 12:28 [facility] [id number]) OT- Subjective Occupational Therapy Visit Type Visit Start Time 11:25 Visit Stop Time 12:10 Notes Pt seen split time [id number] and [id number]. Occupational Therapy Visit Comments Patient Comments Pt just getting ready to eat lunch, able to talk to pt's spouse regarding OT needs. Patient/Caregiver Goals To go home. OT Pain Assessment Pain When Pain Assessed At Rest Pain Present Pain Present Denied Pain M4 OT- IP ADL's Start: 12/08/24 10:49 Freq: Status: Active Protocol: Document 12/10/24 12:22 CCC (Rec: 12/10/24 12:28 [facility] [id number]) OT [id number] General Evaluation Self-Feeding Ability Independent Comments OT Self-Feeding Comments Pt able to independently set- up her meal and eat today. OT ADL-Toileting Comments OT Toileting Comments Able to touch base with pt's regarding getting BSC. OT ADL-Bathing Comments OT Bathing Comments Pt will benefit form shower chair for home use. M5 OT- IP IADL's Start: 12/08/24 10:49 Freq: Status: Active Protocol: Document 12/08/24 10:50 CGR (Rec: 12/08/24 11:04 CGR [id number]) OT-Instrumental Activities of Daily Living Deficits IADL Deficits Identified Deficits Home Safety Awareness Awareness of Need for Assistance at Home Decreased Awareness Ability to Problem Solve Emergency Unable to Problem Solve Situations Medication Management Medication Management Caregiver Administers Money Management Money Management Caregiver Provides Assistance Meal Preparation Meal Preparation Caregiver Provides Assist District Attorney District Attorney Caregiver Provides Assist M6 OT- IP Functional Cognition Start: 12/08/24 10:49 Freq: Status: Active Protocol: Document 12/10/24 12:22 [facility] (Rec: 12/10/24 12:28 [facility] [id number]) Cognitive Factors Limiting Selfcare Function Cognitive Ability Level of Alertness Alert,Confusional State Patient Orientation Name Attention Span Ability Capable of Focused Attention, Capable of Sustained Attention Ability to Follow Commands Able to Follow One Step Commands with Increased Time, Able to Follow One Step Commands with Repetition Cognitive Comments Cognitive Assessment Comments Pt still pleasantly confused and still does not realize that she is in the hospital. M8 OT- IP Objective Assessments Start: 12/08/24 10:49 Freq: Status: Active Protocol: Document 12/08/24 10:50 CGR (Rec: 12/08/24 11:04 CGR [id number]) OT Gross Range of Motion Upper Extremity Range of Motion Assessment Within Functional Limits OT Strength Upper Extremity Strength Assessment Within Functional Limits Comments Strength Comments grossly 4/5 OT- Coordination Assessment Upper Extremity Finger to Nose Test Within Functional Limits Finger Tapping Test Within Functional Limits OT-Muscle Tone Assessment Muscle Tone WNL Yes OT Sensation Assessment Edema Edema Absent M9 OT- IP Assessment and Plan Start: 12/08/24 10:49 Freq: Status: Active Protocol: Document 12/10/24 12:22 [facility] (Rec: 12/10/24 12:28 [facility] [id number]) OT Summary Assessment and Plan Potential Rehabilitation Potential Fair Analytic Complexity at Evaluation Moderate Summary OT Impairments Pain,Balance,Functional Cognition,Functional Mobility, Grooming,Dressing,Toileting, Bathing,Toilet Transfers, Shower Transfers,Activity Tolerance Progress Towards Goals Progressing Toward Goals,Slow Progress due to Cognition Assessment Summary Pt's states good understanding for OT equipment needs. Pt will benefit from 24/7 assist, home health, and shower aid. Goals Self-Feeding Goal Standby Assistance Grooming Goal Standby Assistance Dressing Goal Standby Assistance Toileting Goal Standby Assistance Bathing Goal Minimal Assistance Toilet Transfer Goal Standby Assistance Shower Transfer Goal Contact Guard Assistance Days to Meet Goals 7 Frequency of Treatment Other frequency 5x per week Treatment Plan OT Treatment Plan ADL Training,Functional Cognition Training,Functional Mobility,Patient/Family Education,Discharge Planning Discharge Recommendations OT Discharge Recommendations Home with 23/04 Assist Available,Home Health Transportation Needs at Discharge Private Vehicle
--- NOTE | 2024-12-10 14:08 | CM.DPC ---
DCP Cont. Reviewed EMR and team rounds for status updates. Pt has been medically cleared for d/c. Despite medical advice encouraging her/family to accept SNF rehab, due to fall risk and pt's dementia, they refused. They opted to take pt home with home health. Sent referral to [facility] for review. Pt d/c'd home via family vehicle. No further CM d/c needs are indicated at this time. Notifed TCM group.
== END 2024-12-10 13:05 | disposition home health service (06) | DRG 522 ==
LOC: ED 19:38 → AC 20:53
PROVIDERS: Orthopaedic Surgery; Physician Assistant; Admitting Provider Family Medicine; Emergency Provider Emergency Medicine; PCP Family Medicine; Referring Provider Emergency Medicine; Visit Provider Family Medicine
PROC: 0SRR0JZ Replacement of Right Hip Joint, Femoral Surface with Synthetic Substitute, Open Approach (ICD-10-PCS; CPT 27125; principal; 2024-12-07 09:00)
DX: S72.011A Unspecified intracapsular fracture of right femur, initial encounter for closed fracture (principal); F03.911 Unspecified dementia, unspecified severity, with agitation; I95.81 Postprocedural hypotension; E78.5 Hyperlipidemia, unspecified; W18.30XA Fall on same level, unspecified, initial encounter; Z87.891 Personal history of nicotine dependence
CPT/HCPCS: 36415; 70551; 71045; 72131; 72170; 72192; 73502; 73551; 73590; 80053; 81015; 85014; 85018; 85025; 85610; 85730; 93005; 94762; 97116; 97162; 97166; 97530; 97535; 99222; 99232; 99238; 99283; 99291; C1776; C1713; J0171; J0666; J0690; J1100; J2060; J2405; J2704; J3010; J3490

== ENCOUNTER → 2025-09-02 12:50 | Outpatient (CLI) | payer MEDICARE, SELFPAY ==
[2024-12-06 22:00] VITALS: BMI 25.8
--- NOTE | 2025-09-02 12:53 | DI.RAD.S_ITS ---
PROCEDURE: XR SHOULDER RT MIN 2V INDICATIONS: shoulder pain TECHNIQUE: 3 views of the shoulder were acquired. COMPARISON: [facility], SHOULDER MINIMUM 2 VIEW LEFT, 07/11/2017, 9:47. [facility], SHOULDER MINIMUM 2 VIEW LEFT, 10/22/2015, 12:35. FINDINGS: Bones: No fractures or dislocations. No suspicious bony lesions. Visualized ribs appear intact. Acromioclavicular joint space narrowing with osteophytosis. Soft tissues: No suspicious soft tissue calcifications. IMPRESSION: Moderate acromioclavicular osteoarthritis. Dictated by: Sharif Hagan M.D. on 09/03/2025 at 8:52 Approved by: Sharif Hagan M.D. on 09/03/2025 at 8:53
== END ==
PROVIDERS: PCP Family Medicine; Referring Provider Family Medicine; Visit Provider Family Medicine
DX: M19.011 Primary osteoarthritis, right shoulder (principal); M25.519 Pain in unspecified shoulder
CPT/HCPCS: 73030